=== PATIENT | female | born 1995 | race Caucasian/White ===

== ENCOUNTER 2019-09-12 14:52 | Outpatient (CLI) | payer OTHER, SELFPAY ==
--- NOTE | ~2019-09-12 | US_ITS ---
EXAMINATION: US OB <= 14 weeks fetus DATE: 09/12/2019 15:31 INDICATION: Establish viability and dating of during first trimester TECHNIQUE: Real-time pelvic ultrasound utilizing transabdominal probe was performed. The burke lujan radiologist was not present for the study. COMPARISON: None. FINDINGS: The uterus measures 10.8 x 6.3 x 5.8 cm. There is an intrauterine gestational sac. A yolk sac and fe jelly pole are identified. The crown rump length measures 1.7, which correlates with an estimated gesta tional age of 8 weeks and 1 days. heart motion is identified measuring 169 beats per minute (bp m) by M-mode Doppler. 1.4 x 1.1 x 1.8 cm hypoechoic region at the right side of the uterine fundus co nsistent with small subchorionic hematoma. The right ovary measures 2.6 x 3.3 x 2.5 cm. The left ovary measures 2.3 x 2.1 x 1.9 cm. After flow i dentified at both ovaries on color Doppler There is no free fluid in the pelvis. IMPRESSION: 1. Single living fetus with heart rate of 169 bpm. 2. Gestational age by ultrasound of 8 weeks 1 day(s) +/- 5 day(s) with ultrasound estimated date of delivery (MICHAEL) of 04/22/2020. 3. Likely small subchorionic hematoma. Reviewed, dictated and finalized at location A. [facility] VENDOR IMPRESSION: 1. Single living fetus with heart rate of 169 bpm. 2. Gestational age by ultrasound of 8 weeks 1 day(s) +/- 5 day(s) with ultraso und estimated date of delivery (MICHAEL) of 04/22/2020. 3. Likely small subchorionic hematoma.
== END 2019-09-12 14:53 | disposition home or self-care (01) ==
LOC: ANHIMG 15:01
PROVIDERS: Visit Provider Student in an Organized Health Care Education/Training Program
DX: Z32.01 Encounter for pregnancy test, result positive (principal); Z3A.08 8 weeks gestation of pregnancy
CPT/HCPCS: 76801

== ENCOUNTER 2019-10-13 08:15 | Outpatient (RCR) | payer OTHER, SELFPAY ==
[2019-10-13 09:10] LABS: Basophils Percent Auto 0.2 % (0.2-1.2); Eosinophils Absolute Auto 0.1 K/mm3 (0-0.3); Eosinophils Percent Auto 0.6 % (0-4.4); Hematocrit 34.9 % (37.0-47.0); Hemoglobin 11.6 g/dL (12.0-15.0); Immature Granulocyte Absolute 0.06 K/mm3 (0.00-0.031); Immature Granulocyte Percent A 0.6 % (0-0.5); Lymphocytes Absolute Auto 2.02 K/mm3 (0.9-3.2); Mean Corpuscular HGB Conc 33.2 g/dl (32-36); Mean Corpuscular Hemoglobin 30.5 pg (26-34); Mean Corpuscular Volume 91.8 fl (80-100); Mean Platelet Volume 9.7 fl (7.4-10.4); Monocytes Absolute Auto 0.5 K/mm3 (0.1-0.6); Monocytes Percent Auto 5.1 % (2.6-8.5); Neutrophils Percent Auto 74.5 % (45.5-73.1); Platelet Count Result 268 k/mm3 (150-375); Red Cell Distribution Width 12.2 % (11.5-14.5); White Blood Count 10.7 K/mm3 (4.5-10.0)
[2019-10-13 09:18] LABS: Add Urine Microscopic? YES; Amorphous Sediment Urine Few; Appearance Urine Cloudy (Clear); Bacteria Urine Trace /hpf; Bilirubin Urine Negative (Negative); Blood Urine Negative (Negative); Color Urine Yellow (Yellow); Glucose Urine UA Negative (Negative); Ketones Urine Negative (Negative); Leukocyte Esterase Ur Trace LEU/UL (NEGATIVE); Mucus Urine Rare /lpf; Nitrate Urine Negative (Negative); Protein Urine Negative (Negative); RBC Urine 0-2 /hpf (0-2); Specific Grav Ur 1.012 (1.001-1.035); Squamous Epithelial Cell Urine Moderate /hpf (Few); Urobilinogen Urine Negative mg/dL (<2.0)
[2019-10-13 10:07] LABS: Hepatitis B Surface Antigen Negative (Negative); Rubella IgG Antibody 71.6 IU/ML
[2019-10-13 10:14] LABS: HIV 1/2 Ab P24 Ag Result Negative (Negative); Hepatitis C Virus Antibody Negative (Negative)
[2019-10-13 10:17] LABS: Vitamin D 25 Hydroxy 22.5 ng/mL
[2019-10-15 09:24] LABS: Rapid Plasma Reagin Non-Reactive (NonReactive)
[2019-10-16 14:49] LABS: Varicella IgG Antibody <135.00 Index (>=165.00)
[2019-10-20 11:33] LABS: Hemoglobin 11.8 g/dL (11.7-15.5); MCH 30.8 pg (27.0-33.0); MCV 93.6 FL (80.0-100.0); RDW 13.2 % (11.0-15.0); Red Blood Cell Count 3.85 Mill/uL (3.80-5.10)
== END 2020-01-11 23:59 | disposition home or self-care (01) ==
LOC: ANHLAB 08:15
PROVIDERS: Visit Provider Student in an Organized Health Care Education/Training Program
DX: Z11.4 Encounter for screening for human immunodeficiency virus [HIV] (principal); Z3A.00 Weeks of gestation of pregnancy not specified
CPT/HCPCS: 36415; 81001; 81220; 81243; 82306; 83021; 84443; 85025; 86592; 86703; 86762; 86787; 86803; 86900; 86901; 87086; 87340; G0432

== ENCOUNTER 2019-11-04 08:04 | Emergency (ER) | payer OTHER, SELFPAY ==
--- NOTE | 2019-11-04 08:14 | ED.GENADULT ---
HPI - General Adult General Chief complaint: Urogenital-Female Stated complaint: Possible UTI Time Seen by Provider: 11/04/19 08:14 Source: patient Mode of arrival: ambulatory Limitations: no limitations History of Present Illness HPI narrative: 24-year-old female patient presents to the [facility] with complaints of right low back pain x3 days. Patient states that she is currently 15 weeks does have a doctor's appointment to see her OB doctor this coming . Patient states that time she has noticed some odor to her urine. Patient states that she does have pain with urination that comes and goes but is not consistent. Patient states that time she does have some pelvic cramping that comes and goes but it is not severe. Patient denies any fevers, nausea, vomiting or diarrhea. Patient denies taking anything for her symptoms. Related Data Home Medications Medication Instructions Recorded Confirmed vits 75-iron 28 mg-folic pkg PO 09/06/19 acid 800 mcg-omega-3 oral combo pack metoprolol tartrate [Lopressor] 25 mg PO DAILY 11/04/19 11/04/19 Allergies Allergy/AdvReac Type Severity Reaction Status Date / Time No Known Allergies Allergy Verified 11/04/19 08:26 Review of Systems Review of Systems: Narrative: CONSTITUTIONAL: Denies fever, chills, or sweats. EYES: Denies visual changes, redness, or discharge. ENT: Denies rhinorrhea, congestion, sore throat, or otalgia. CARDIOVASCULAR: Denies chest pain, palpitations, or edema. RESPIRATORY: Denies cough or dyspnea. GASTROINTESTINAL: Denies abdominal pain, nausea, vomiting, or diarrhea. GENITOURINARY: Denies dysuria or hematuria. Positive odor to urine SKIN: Denies rash or itching. MUSCULOSKELETAL positive right-sided low back pain, denies joint pain, or myalgia. NEUROLOGIC: Denies headache, numbness, or weakness. PSYCHIATRIC: Denies anxiety or depression. [facility] Past Medical History Medical History SVT (supraventricular tachycardia) Surgical History Surgical History H/O cardiac radiofrequency ablation Hx of tonsillectomy Social History Social History (Reviewed 03/29/20 @ 08:15 by OWEN Ortiz Smoking status: Former smoker Smoking end date: 08/08/18 Alcohol intake: current Gender identity (if verbalized by the patient): Female Comments At the time of my signature I agree with nursing past medical history, surgical, social, and family history. There is no relevant family history pertinent to the presenting complaint. Exam Narrative: Exam Narrative: GENERAL: Well-appearing, well-nourished, and in no acute distress. HEAD: Normocephalic, atraumatic. EYES: PERRLA and EOMI. ENT: Nares clear, no rhinorrhea or epistaxis. Mucous membranes moist. Bilateral TMs are clear no erythema or foreign bodies in the canal. Posterior pharynx with no erythema, tonsillar margin, exudates or lesions present. NECK: Supple. No lymphadenopathy CHEST: Clear to auscultation. No respiratory distress. HEART: Regular rate and rhythm. No murmur heard. Normal peripheral pulses. ABDOMEN: Soft, nontender, nondistended, normal active bowel sounds. BACK: Patient is able to ambulated without assistance. Pt is seated on the stretcher in no obvouis distress. No surface trauma noted. muscle tenderness to Palpation to the right lower lumbar area. No spasm or mass. No step-offs or deformity noted to the cervical, thoracic or lumbar spine to firm Palpation at the midline. No CVA tenderness to percussion. No saddle anesthesia. ROM: able to stand erect. Normal flexion, extension, Lateral bending and rotation without limitation or complaint of pain. EXTREMITIES: Normal range of motion. No edema. SKIN: Warm, dry, no rash. NEURO: No focal deficits. Alert and oriented x3. Course Vital Signs Vital signs: Vital Signs Temperature 37.1 C 11/04/19 08:19 Pu
[2019-11-04 08:19] VITALS: BP 110/60; PULSE 83; RESP 16; TEMP 37.1; O2SAT 98
--- NOTE | 2019-11-04 08:31 | PC.NURSE ---
0821- Pt reports she has a Dr. Pennington on
== END 2019-11-04 08:36 | disposition home or self-care (01) ==
PROVIDERS: Emergency Provider Nurse Practitioner Family
DX: M54.5 Low back pain (principal); Z87.891 Personal history of nicotine dependence
CPT/HCPCS: 81003; 87086; 99213; G0463

== ENCOUNTER 2020-04-04 19:03 | Emergency (ER) | payer OTHER, SELFPAY ==
[2020-04-04 19:15] VITALS: BP 130/54; PULSE 102; RESP 16; TEMP 36.8; O2SAT 98
--- NOTE | 2020-04-04 19:21 | ED.GENADULT ---
HPI - General Adult General Chief complaint: Ear Stated complaint: Ear Pain Time Seen by Provider: 04/04/20 19:21 Source: patient and RN notes reviewed Mode of arrival: ambulatory Limitations: no limitations History of Present Illness HPI narrative: 24-year-old 37 weeks and 2 days female presents with complaints of left otalgia for the past 3-4 days. History of ear infections and tympanostomy. Denies ear itching and drainage. No treatment. Tamy says she has been using q-tips to clean ears for the past 23 years. Denies swimming or getting water into ear. Denies trouble hearing. Denies URI symptoms, No high fevers or chills. Denies injury to the ear. No nasal drainage and congestion. Denies nausea, vomiting, tinnitus, and dizziness. The patient reports she have not been diagnosed with COVID-19. The patient reports she is not waiting for the results of a COVID-19 lab test. The patient reports she do not have fever, chills, weakness, fatigue, myalgia, or facial swelling. The patient reports she do not have a new or worsening cough or shortness of breath. Denies chest pain. The patient reports she do not have any rhinorrhea, congestion, sore throat, loss of taste, nausea, vomiting, abdominal pain, and diarrhea. Tolerating po intake well. Denies recent traveling. Denies concerns for COVID-19 or exposures been home with limited outdoor exposure except for essential household needs and return home. At this time, patient is not suspected of having COVID-19. Some parts of this dictation were generated by voice recognition software and may contain typographical and/or grammatical inaccuracies. Related Data Home Medications Medication Instructions Recorded Confirmed metoprolol tartrate [Lopressor] 25 mg PO DAILY 11/04/19 04/04/20 Allergies Allergy/AdvReac Type Severity Reaction Status Date / Time No Known Allergies Allergy Verified 04/04/20 19:25 Review of Systems Review of Systems: Narrative: CONSTITUTIONAL: Denies fever, chills, sweats. EYES: Denies visual changes, redness, discharge. ENT: Denies rhinorrhea, congestion, sore throat, drainage and itching. Complains of LT otalgia. CARDIOVASCULAR: Denies chest pain, palpitations, edema. RESPIRATORY: Denies dyspnea, wheezing, cough. GASTROINTESTINAL: Denies abdominal pain, nausea, vomiting, diarrhea. GENITOURINARY: Denies dysuria, hematuria, abnormal discharge. SKIN: Denies rash or itching. MUSCULOSKELETAL: Denies acute back pain, joint pain, or myalgia. NEUROLOGIC: Denies numbness or focal weakness. PSYCHIATRIC: Denies anxiety or depression. All systems reviewed & are unremarkable except as noted in HPI and below PMFSH Past Medical History Medical History (Updated 04/05/20 @ 00:00 by Corky Roman) Ear infection SVT (supraventricular tachycardia) Surgical History Surgical History (Updated 04/04/20 @ 19:50 by LIEN Green) H/O cardiac radiofrequency ablation History of dental surgery History of hand surgery LT History of tympanostomy Hx of tonsillectomy Family History Family History (Updated 04/04/20 @ 19:50 by LIEN Green) Father Alive and well Father Alive and well Social History Social History (Updated 04/04/20 @ 19:51 by LIEN Green) Smoking status: Former smoker Tobacco type: cigarettes Second hand tobacco smoke exposure: Yes Smoking end date: 08/08/18 Alcohol intake: former Alcohol use details: stop due to Substance use: former Substance use type: marijuana Living arrangements: with family Occupation/Education: unemployed Gender identity (if verbalized by the patient): Female Sexual Orientation (if Verbalized by the Patient): Straight or Heterosexual Comments At time of signature, I have reviewed and agree with nursing past medical, surgical, social, and family history. Please see nursing chart for further information. There is no r
== END 2020-04-04 19:44 | disposition home or self-care (01) ==
PROVIDERS: Emergency Provider Nurse Practitioner Family
DX: H61.22 Impacted cerumen, left ear (principal); Z87.891 Personal history of nicotine dependence; O99.89 Other specified diseases and conditions complicating pregnancy, childbirth and the puerperium; Z3A.37 37 weeks gestation of pregnancy
CPT/HCPCS: 69210; 99212; A9270; G0463

== ENCOUNTER 2021-06-15 14:23 | Emergency (ER) | payer OTHER, SELFPAY ==
--- NOTE | ~2021-06-15 | XR_ITS ---
XR foot RT min 3V, XR foot LT min 3V 06/15/2021 16:15 (accession [id number]), 06/15/2021 16:16 (accession [id number]) Indication: Status post fall. Bilateral foot pain. Procedure: 4 views each foot Comparison: No prior studies for comparison. Findings: There is an oblique intra-articular fracture proximal aspect of the left fifth metatarsal w ith minimal displacement. There is overlying soft tissue swelling. No other fracture or traumatic mal alignment. Lisfranc joint is intact bilaterally. No foreign bodies. Impression: 1: Oblique intra-articular fracture proximal aspect of the left fifth metatarsal. Reviewed, dictated and finalized at location A. Y COUNTER CLERK Impression: 1: Oblique intra-articular fracture proximal aspect of the left fifth metatarsa l. Impression: 1: Oblique intra-articular fracture proximal aspect of the left fifth metatarsa l.
--- NOTE | ~2021-06-15 | XR_ITS ---
XR knee RT 3V 06/15/2021 16:16 Indication: Right knee pain Procedure: 3 views right knee Comparison: No prior studies for comparison. Findings: No fracture, subluxation or dislocation. No significant soft tissue abnormality. No foreign bodies. No significant joint effusion. Impression: 1: No acute bone or joint abnormality. Reviewed, dictated and finalized at location A. [facility] AG[facility] Impression: 1: No acute bone or joint abnormality.
[2021-06-15 15:50] VITALS: BP 123/109; PULSE 96; RESP 20; TEMP 36.4; O2SAT 96
--- NOTE | 2021-06-15 15:59 | ED.FALL ---
HPI - Fall General Chief Complaint: Fall Stated Complaint: pain L foot Source: patient Mode of arrival: wheelchair Limitations: no limitations History of Present Illness HPI Narrative: Previously well 26-year-old woman comes in today complaining of pain in her knees and feet after she fell less than an hour prior to presentation. Patient states that she was carrying her child in the car seat when she fell. She did not lose consciousness and denies any other injuries. Her tetanus is up-to-date. She has been unable to bear weight on her left foot since the fall. complaint: fall Onset (ago): hour(s) (1) Fall from: standing Fall witnessed: no Place fall occurred: home Loss of consciousness: none Symptoms prior to fall: none Context: tripped/slipped Location of injury - extremities: Bilateral: knee and foot Severity: severe Quality: sharp Associated symptoms (after fall): denies Related Data Home Medications Medication Instructions Recorded Confirmed metoprolol tartrate [Lopressor] 25 mg PO DAILY 11/04/19 06/15/21 Allergies Allergy/AdvReac Type Severity Reaction Status Date / Time No Known Allergies Allergy Verified 06/15/21 16:01 Review of Systems Review of Systems: All systems reviewed & are unremarkable except as noted in HPI and below Musculoskeletal: Musculoskeletal: Reports as per HPI, Denies back pain, Reports arthralgias and Reports joint swelling Integumentary/Breasts: Skin/Breast: Denies pruritus, Denies erythema and Denies rash Comments: Abrasions on both legs Neurologic: Denies vertigo, Denies dizziness, Denies syncope, Denies focal weakness and Denies numbness Hematologic/Lymphatic: Hematologic/Lymphatic: Denies easy bleeding and Denies easy bruising Allergic/Immunologic: Allergic/Immunologic: Denies lip swelling and Denies throat swelling PMFSH Past Medical History Medical History Ear infection SVT (supraventricular tachycardia) Surgical History Surgical History H/O cardiac radiofrequency ablation History of dental surgery History of hand surgery LT History of tympanostomy Hx of tonsillectomy Family History Family History (Updated 04/04/20 @ 19:50 by LIEN Green) Father Alive and well Father Alive and well Social History Social History (Updated 04/04/20 @ 19:51 by LIEN Green) Smoking status: Former smoker Tobacco type: cigarettes Second hand tobacco smoke exposure: Yes Smoking end date: 08/08/18 Alcohol intake: former Alcohol use details: stop due to Substance use: former Substance use type: marijuana Gender identity (if verbalized by the patient): Female Sexual Orientation (if Verbalized by the Patient): Straight or Heterosexual Exam Const: General: healthy appearing and alert Orientation/consciousness: patient oriented x3 Limitations: no limitations Other: Moderate acute distress, anxious Resp: Effort & Inspection: normal respiratory effort and not labored Auscultation: clear to auscultation bilaterally, no rales, no rhonchi and no wheezes Cardio: Rate: regular rate Rhythm: regular rhythm Skin: General skin exam: normal color, no jaundice and no pallor Rashes: no rashes Neuro: General: patient oriented x3, moves all extremities and CN's II-XI intact bilaterally Speech: normal speech Extrem: General: no clubbing, cyanosis or edema Right lower extremity: normal capillary refill, no joint enlargement and foot Details: tenderness (Dorsal tenderness at distal half of the 1st metatarsal and the proximal hallux.), abrasion (Right anterior knee and dorsal foot medially), ecchymosis (Tip of the right hallux) and vascular exam Details: dorsalis pedis pulse present and normal capillary refill; no cyanosis Left lower extremity: normal capillary refill, knee (Anterior knee) Details: abrasion (
[2021-06-15] MEDS: HYDROcodone/acetaminophen (*CRX) 5-325 MG TABLET 1 TAB PO (16:00)
== END 2021-06-15 17:18 | disposition home or self-care (01) ==
PROVIDERS: Emergency Provider Emergency Medicine
DX: S80.819A Abrasion, unspecified lower leg, initial encounter (principal); S92.352A Displaced fracture of fifth metatarsal bone, left foot, initial encounter for closed fracture; W19.XXXA Unspecified fall, initial encounter
CPT/HCPCS: 29515; 73562; 73630; 99283; 99284; A9270

== ENCOUNTER 2021-12-10 15:35 | Emergency (ER) | payer OTHER, SELFPAY ==
[2021-12-10 15:44] VITALS: BP 107/64; PULSE 92; RESP 16; TEMP 36.6; O2SAT 100
--- NOTE | 2021-12-10 15:44 | ED.URI ---
HPI - URI/Sore Throat General Chief Complaint: Upper Respiratory Infection Stated Complaint: Cough Time Seen by Provider: 12/10/21 15:44 Source: patient Mode of arrival: ambulatory Limitations: no limitations History of Present Illness HPI Narrative: 26-year-old female with no significant medical history presents with complaint of cough for 2 weeks. Reports shortness of breath with exertion, coughing all night long. No fever chills. Reports increased fatigue over the last few days. Did a home COVID test that was negative. Is using cough drops, no other [id number] cough suppressant. Reports cough is so bad that she is urinating on herself. All systems reviewed and negative except as noted above. Related Data Home Medications Medication Instructions Recorded Confirmed metoprolol tartrate [Lopressor] 25 mg PO DAILY 11/04/19 12/10/21 lamotrigine 25 mg PO DAILY 12/10/21 12/10/21 sertraline 50 mg PO DAILY 12/10/21 12/10/21 Allergies Allergy/AdvReac Type Severity Reaction Status Date / Time No Known Allergies Allergy Verified 12/10/21 15:44 Review of Systems Review of Systems: CONSTITUTIONAL: Denies fever, chills, or sweats. EYES: Denies visual changes, redness, or discharge. ENT: Denies rhinorrhea, congestion, sore throat, or otalgia. CARDIOVASCULAR: Denies chest pain, palpitations, or edema. RESPIRATORY: Reports cough. Denies dyspnea. GASTROINTESTINAL: Denies abdominal pain, nausea, vomiting, or diarrhea. GENITOURINARY: Denies dysuria or hematuria. SKIN: Denies rash or itching. MUSCULOSKELETAL: Denies back pain, joint pain, or myalgia. NEUROLOGIC: Denies headache, numbness, or weakness. PSYCHIATRIC: Denies anxiety or depression. All other systems reviewed are negative, except as documented in HPI. PENDING SALE TO [facility] Past Medical History Medical History Ear infection Metatarsal bone fracture SVT (supraventricular tachycardia) Surgical History Surgical History H/O cardiac radiofrequency ablation History of dental surgery History of hand surgery LT History of tympanostomy Hx of tonsillectomy Family History Family History Father Alive and well Father Alive and well Social History Social History Tobacco type: e-cigarettes/vaping Second hand tobacco smoke exposure: Yes Smoking end date: 08/08/18 Alcohol intake: never Alcohol use details: stop due to Substance use: never Substance use type: does not use Gender identity (if verbalized by the patient): Female Sexual Orientation (if Verbalized by the Patient): Straight or Heterosexual Comments At time of signature, agree with nursing past medical, surgical, social and family history. There is no relevant family history pertinent to the presenting complaint. Exam Narrative: GENERAL: This is a well-nourished, well-developed patient, in no apparent distress. HEAD: normocephalic, atraumatic. EYES: PERRL. Sclera clear/white. Vision is grossly intact. EARS: External ears normal NOSE: External nose normal NECK: Neck supple, non-tender without lymphadenopathy, masses or thyromegaly. CARDIOVASCULAR: Regular rate and rhythm without murmurs, gallops, or rubs. RESPIRATORY: Decreased lung sounds to bases, otherwise clear. No wheezes, rales, or rhonchi. SKIN: warm, Dry, intact with no suspicious lesions or rash, good texture and turgor. NEURO: awake, alert, and oriented to person, place and time. There were no obvious focal neurologic abnormalities. EXTREMITIES: No joint tenderness, effusion, or edema noted. No calf tenderness. Negative Homans sign bilaterally. Course Course Level of Care: Express Care Visit Vital Signs Vital signs: Vital Signs Temperature 36.6 C 12/10/21 15:44 Pulse Rate 92 05/0
[2021-12-10 15:46] VITALS: BP 107/64; PULSE 92; RESP 16; TEMP 36.6; O2SAT 100
== END 2021-12-10 15:58 | disposition home or self-care (01) ==
PROVIDERS: Emergency Provider Nurse Practitioner Family
DX: J06.9 Acute upper respiratory infection, unspecified (principal)
CPT/HCPCS: 99213; G0463

== ENCOUNTER 2022-01-29 08:37 | Emergency (ER) | payer OTHER, SELFPAY ==
--- NOTE | 2022-01-29 08:45 | ED.EYEPROB ---
HPI - Eye Problem General Chief complaint: Eye Problems Stated complaint: left eye redness/painful Time Seen by Provider: 01/29/22 08:47 Source: patient, RN notes reviewed and old records reviewed Mode of arrival: ambulatory Limitations: no limitations History of Present Illness HPI Narrative: 26-year-old female presents to the [facility] with pain and redness to the left eye. Patient states that she had irritation to her left eye last night, went to bed woke up with a completely crusted closed. Denies any trauma, does not wear contact lenses no fevers. No headaches. No sensitivity to light MD chief complaint: eye pain and eye redness Location: left eye Eye Symptoms: redness, pain, itching and discharge Related Data Home Medications Medication Instructions Recorded Confirmed sertraline 50 mg tablet 50 mg PO DAILY 12/10/21 01/29/22 lamotrigine 25 mg tablet 100 mg PO DAILY 01/13/22 01/29/22 clonidine HCl 0.1 mg tablet 0.1 mg PO DAILY 01/29/22 01/29/22 lamotrigine 100 mg tablet 100 mg PO DIRECTED 01/29/22 01/29/22 Allergies Allergy/AdvReac Type Severity Reaction Status Date / Time No Known Allergies Allergy Verified 01/29/22 08:47 Review of Systems Review of Systems: All systems reviewed & are unremarkable except as noted in HPI and below Constitutional: Constitutional: Reports no additional constitutional complaints, Denies chills and Denies fever(s) Eyes: Eyes: Reports as per HPI, Denies change in vision, Denies diplopia, Reports eye discharge, Reports irritation, Denies loss of vision and Denies photophobia ENT: Reports system reviewed and no additional complaints, except as documented Cardiovascular: Cardiovascular: Reports no additional cardiovascular complaints Respiratory: Respiratory: Reports no additional respiratory complaints Gastrointestinal: Gastrointestinal: Reports no additional gastrointestinal complaints Musculoskeletal: Musculoskeletal: Reports no additional musculoskeletal complaints Integumentary/Breasts: Skin/Breast: Reports system reviewed and no additional complaints, except as docu Neurologic: Reports system reviewed and no additional complaints, except as documented Psychiatric: Psychiatric: Reports no additional psychiatric complaints Allergic/Immunologic: Allergic/Immunologic: Reports no additional allergic/immunologic complaints PMFSH Past Medical History Medical History Bilateral lower abdominal pain Chronic diarrhea Ear infection Hematochezia Metatarsal bone fracture Obesity SVT (supraventricular tachycardia) Tobacco use Surgical History Surgical History H/O cardiac radiofrequency ablation History of dental surgery History of hand surgery LT History of tympanostomy Hx of tonsillectomy Family History Family History Father Alive and well Father Alive and well Social History Social History Smoking status: Current every day smoker (Vapes) Tobacco type: e-cigarettes/vaping Second hand tobacco smoke exposure: Yes Smoking end date: 08/08/18 Alcohol intake: never Alcohol use details: stop due to Substance use: never Substance use type: does not use Gender identity (if verbalized by the patient): Female Sexual Orientation (if Verbalized by the Patient): Straight or Heterosexual Comments At the time of my signature, I reviewed and agree with the nursing past medical, surgical, social, and family history. There is no relevant family history pertinent to the patient complaint. Exam Const: General: healthy appearing, no acute distress and alert Nutritional Appearance: well nourished Orientation/consciousness: patient oriented x3 Limitations: no limitations HENMT: Head: normal to inspection Ears: external ears normal Eyes: General: appearance normal, bot
[2022-01-29 08:47] VITALS: BP 108/60; PULSE 76; RESP 16; TEMP 35.9; O2SAT 98
[2022-01-29 08:49] VITALS: BP 108/60; PULSE 76; RESP 16; TEMP 35.9; O2SAT 98
== END 2022-01-29 08:57 | disposition home or self-care (01) ==
PROVIDERS: Emergency Provider Nurse Practitioner
DX: H10.32 Unspecified acute conjunctivitis, left eye (principal); F17.290 Nicotine dependence, other tobacco product, uncomplicated; E66.9 Obesity, unspecified; Z68.36 Body mass index [BMI] 36.0-36.9, adult
CPT/HCPCS: 99213; G0463

== ENCOUNTER 2022-04-29 08:25 | Emergency (ER) | payer OTHER, SELFPAY ==
--- NOTE | ~2022-04-29 | XR_ITS ---
EXAMINATION: XR chest 1V portable DATE: 04/29/2022 08:51 INDICATION: Shortness of breath. TECHNIQUE: A single frontal view of the chest was obtained. COMPARISON: Chest 2 views 03/23/2018 FINDINGS: The chest demonstrates clear lungs without pneumonia, pleural effusion, or pneumothorax. Th e heart size is normal. IMPRESSION: 1. No acute cardiopulmonary disease. Reviewed, dictated and finalized at location A.
[2022-04-29 08:34] VITALS: BP 114/55; PULSE 95; RESP 17; TEMP 36.3; O2SAT 97
[2022-04-29 08:35] VITALS: BP 114/55; PULSE 95; RESP 17; TEMP 36.3; O2SAT 97
--- NOTE | 2022-04-29 08:54 | ED.SOB ---
HPI - SOB/Dyspnea General Chief Complaint: Shortness of Breath/Dyspnea Stated Complaint: BREATHING ISSUES Time Seen by Provider: 04/29/22 08:40 Source: patient Mode of arrival: ambulatory Limitations: no limitations History of Present Illness HPI Narrative: this is a 26-year-old female that presents with what she states as feeling short of breath, but clarifies as to feels like she has to think about taking a deep breath, there is currently no cough or congestion no fever chills no chest pain no abdominal pain no headaches no blurry vision no nasal congestion. MD elicited complaint: shortness of breath Onset (ago): hour(s) Timing: improved Severity: mild Related Data Home Medications Medication Instructions Recorded Confirmed norethindrone 1 mg-ethinyl 1 tablet PO DAILY 02/19/22 02/19/22 estradiol 20 mcg (24)-iron 75 mg (4) tablet bupropion HCl 150 mg 24 hr tablet, 150 mg PO QAM 04/29/22 04/29/22 extended release buspirone 10 mg tablet 10 mg PO BID 04/29/22 04/29/22 escitalopram oxalate 10 mg tablet 10 mg PO DAILY 04/29/22 04/29/22 lamotrigine 150 mg tablet 150 mg PO DAILY 04/29/22 04/29/22 Allergies Allergy/AdvReac Type Severity Reaction Status Date / Time No Known Allergies Allergy Verified 04/29/22 08:43 Review of Systems Review of Systems: All systems reviewed & are unremarkable except as noted in HPI and below PMFSH Past Medical History Medical History Bilateral lower abdominal pain Chronic diarrhea Ear infection Hematochezia Metatarsal bone fracture Obesity SVT (supraventricular tachycardia) Tobacco use Surgical History Surgical History H/O cardiac radiofrequency ablation History of dental surgery History of hand surgery LT History of tympanostomy Hx of tonsillectomy Family History Family History Father Alive and well Father Alive and well Social History Social History Smoking status: Current every day smoker Tobacco type: e-cigarettes/vaping Second hand tobacco smoke exposure: Yes Smoking end date: 08/08/18 Alcohol intake: never Alcohol use details: stop due to Substance use: never Substance use type: does not use Gender identity (if verbalized by the patient): Female Sexual Orientation (if Verbalized by the Patient): Straight or Heterosexual Spiritual care concerns: No Exam Const: General: healthy appearing and no acute distress Limitations: no limitations HENMT: Head: normal to inspection Ears: external ears normal General nose exam: Normal external nose present Eyes: Conjunctivae: conjunctivae normal EOM: EOMs intact bilaterally Neck: Neck: normal visual inspection and no lymphadenopathy Chest: Chest palpation & inspection: normal inspection of the chest Resp: Effort & Inspection: normal respiratory effort Cardio: Rate: regular rate Rhythm: regular rhythm GI: GI Palp: Yes Soft to palpation Auscultation: normal bowel sounds Skin: General skin exam: normal color Wounds: no wounds Neuro: General: patient oriented x3, moves all extremities and no meningeal signs Extrem: General: normal to inspection Psych: Mental Status: mental status grossly normal Course Course Emergency Course: Patient declined any anti anxiety medication x-ray performed and reviewed patient is stable to be discharged her vital signs are stable O2 sats 97% on room air blood pressure 114/55 heart rate of 95 and respiratory rate of 17 Vital Signs Vital signs: Vital Signs Temperature 36.3 C L 04/29/22 08:34 Pulse Rate 95 04/29/22 08:34 Respiratory Rate 17 04/29/22 08:34 Blood Pressure 114/55 L 04/29/22 08:34 Pulse Oximetry 97 04/29/22 08:34 Oxygen Delivery Room Air 04/29/22 08:34 Temperature 36.3 C L 04/29/22 08:35 Pulse Rate 95
[2022-04-29 09:19] VITALS: O2SAT 100
[2022-04-29 09:22] VITALS: BP 114/55; PULSE 95; RESP 17; TEMP 36.3; O2SAT 97
== END 2022-04-29 09:24 | disposition home or self-care (01) ==
LOC: CHSED 09:11
PROVIDERS: Emergency Provider Emergency Medicine
DX: F41.9 Anxiety disorder, unspecified (principal)
CPT/HCPCS: 71045; 99283

== ENCOUNTER 2022-08-13 10:10 | Emergency (ER) | payer OTHER, SELFPAY ==
[2022-08-13 10:20] VITALS: BP 115/66; PULSE 88; RESP 18; TEMP 36.2; O2SAT 97
--- NOTE | 2022-08-13 10:46 | ED.GENADULT ---
HPI - General Adult General Stated complaint: Left hand middle finger pain Time Seen by Provider: 08/13/22 10:39 History of Present Illness HPI narrative: This is a 27-year-old female presenting with a painful lump on her left hand middle finger. Patient noticed that she had a painful dark lump over the volar aspect of the joint between proximal and middle phalanx of her 3rd finger. She says it fluctuates in size throughout the day. She notes no trauma, she notes that it is painful to touch, she has never had this in the past. She became concerned because she woke up this morning and her hand was numb although that quickly resolved. patient denies any other complaints. Related Data Home Medications Medication Instructions Recorded Confirmed bupropion HCl 150 mg 24 hr tablet, 150 mg PO QAM 04/29/22 04/29/22 extended release buspirone 10 mg tablet 10 mg PO BID 04/29/22 04/29/22 lamotrigine 150 mg tablet 150 mg PO DAILY 04/29/22 04/29/22 Allergies Allergy/AdvReac Type Severity Reaction Status Date / Time No Known Allergies Allergy Verified 04/29/22 08:43 [facility] Past Medical History Medical History Bilateral lower abdominal pain Chronic diarrhea Ear infection Hematochezia Metatarsal bone fracture Obesity SVT (supraventricular tachycardia) Tobacco use Surgical History Surgical History H/O cardiac radiofrequency ablation History of dental surgery History of hand surgery LT History of tympanostomy Hx of tonsillectomy Family History Family History Father Alive and well Father Alive and well Social History Social History Smoking status: Current every day smoker Tobacco type: e-cigarettes/vaping Second hand tobacco smoke exposure: Yes Smoking end date: 08/08/18 Alcohol intake: never Alcohol use details: stop due to Substance use: never Substance use type: does not use Gender identity (if verbalized by the patient): Female Sexual Orientation (if Verbalized by the Patient): Straight or Heterosexual Spiritual care concerns: No Exam Narrative: APPEARANCE: No apparent distress. Head: atraumatic. EYES: EOMI, NOSE: Atraumatic NECK: Trachea midline RESPIRATORY: No increased rate of breathing CARDIOVASCULAR: RRR, ABDOMINAL: Non-distended MUSCULOSKELETAl: Patient has a 2 mm circular dark spot over the volar aspect of the 3rd left hand. His joint between the proximal and middle phalanx. Extension and flexion are intact. Cap refills less than 2 seconds. No erythema or evidence of infection. NEURO: Alert. Moving 4/4 extremities SKIN:: Warm, dry. Normal color PSYCHIATRIC: Normal affect Course Vital Signs Vital signs: Vital Signs Temperature 97.2 F L 08/13/22 10:20 Pulse Rate 88 08/13/22 10:20 Respiratory Rate 18 08/13/22 10:20 Blood Pressure 115/66 08/13/22 10:20 Pulse Oximetry 97 08/13/22 10:20 Oxygen Delivery Room Air 08/13/22 10:20 Temperature 97.2 F L 08/13/22 10:20 Pulse Rate 88 08/13/22 10:20 Respiratory Rate 18 08/13/22 10:20 Blood Pressure 115/66 08/13/22 10:20 Pulse Oximetry 97 08/13/22 10:20 Oxygen Delivery Room Air 08/13/22 10:20 Medical Decision Making [facility] Narrative Medical decision making narrative: This is a 27-year-old female presenting with a painful lump on her hand for the last 2-3 days. Differential includes blood blister, ganglion cyst, ruptured blood vessel or occult traumatic injury. patient has a small lump on her hand almost looks like a blood blister although she denies trauma or any pinching events. She has no other symptoms which to guide a workup. No emergent conditions to be treated this time with patient can follow-up with her primary care physician. Discharged. Vital Signs Vital Signs:
[2022-08-13 10:52] VITALS: BP 115/66; PULSE 88; RESP 20; TEMP 36.2; O2SAT 96
== END 2022-08-13 10:57 | disposition home or self-care (01) ==
PROVIDERS: Emergency Provider Emergency Medicine
DX: R22.32 Localized swelling, mass and lump, left upper limb (principal); F17.290 Nicotine dependence, other tobacco product, uncomplicated
CPT/HCPCS: 99281

== ENCOUNTER 2022-09-04 11:44 | Outpatient (CLI) | payer OTHER, SELFPAY ==
--- NOTE | ~2022-09-04 | XR_ITS ---
XR hand LT min 3V 09/04/2022 12:04 INDICATION: Left hand pain and bruising PROCEDURE: 3 views left hand COMPARISON: 04/11/2019 FINDINGS: Fracture, dislocation or subluxation is not identified. The soft tissues appear within norm al limits. No foreign bodies are identified. IMPRESSION: 1: NO ACUTE BONE OR JOINT ABNORMALITY IDENTIFIED. Reviewed, dictated and finalized at location A. ROOM CULTIVATOR
== END 2022-09-04 11:45 | disposition home or self-care (01) ==
DX: S69.90XA Unspecified injury of unspecified wrist, hand and finger(s), initial encounter (principal); X58.XXXA Exposure to other specified factors, initial encounter
CPT/HCPCS: 73130

== ENCOUNTER 2024-01-14 15:09 | Emergency (ER) | payer OTHER, SELFPAY ==
[2024-01-14 15:12] VITALS: BP 107/67; PULSE 68; RESP 19; TEMP 36.6; O2SAT 96
--- NOTE | 2024-01-14 15:14 | ECG_ITS ---
Test Date: 2024-01-14 15:19:11 Measurements Intervals [place] Rate: 62 P: 37 [place]: 148 QRS: 42 QRSD: 90 T: 44 QT: 395 QTc: 402 Interpretive Statements SINUS RHYTHM WITH SINUS ARRHYTHMIA No previous ECG available for comparison Electronically Signed On 01-17-2024 10:38:19 CDT by Giovanny Sanderson M.D.
[2024-01-14 15:22] VITALS: PULSE 76; O2SAT 97
[2024-01-14 15:23] VITALS: BP 107/67; PULSE 76; RESP 20; TEMP 36.6; O2SAT 97
--- NOTE | 2024-01-14 16:10 | ED.SOB ---
HPI - SOB/Dyspnea General Chief Complaint: Shortness of Breath/Dyspnea Stated Complaint: shortness of breath Source: patient Mode of arrival: ambulatory Limitations: no limitations History of Present Illness HPI Narrative: 8-year-old female with a history of SVT status post ablation, ex-smoker, bipolar disorder and intermittent chest pain (possibly related to Concerta as per her [employer]) presents to the ER with a 3 day history of -- anterior chest pain and pain in bilateral lateral lower chest which is not related to activity. No radiation of the pain. The pain is short lived. She has had these pains in the past for which she was placed on metoprolol by her [employer] with resolution of the chest pains which has recurred today. pain is rated as 8/10 and lasts for wearing intervals. At times it lasts 5 minutes and at other times it lasts for a longer duration. Pain resolved spontaneously. -- Shortness of breath. The patient complains of shortness of breath without any cough, sputum production. No fever or chills MD elicited complaint: shortness of breath and chest pain Onset (ago): day(s) ( 3 days) Timing: intermittent Severity: severe Exacerbating factors: nothing Relieving factors: nothing Associated symptoms: chest pain Treatment prior to arrival: none Related Data Home oxygen amount: none Home Medications Medication Instructions Recorded Confirmed lamotrigine 100 mg tablet 100 mg PO DAILY 01/14/24 01/14/24 methylphenidate HCl 27 mg 27 mg PO DAILY 01/14/24 01/14/24 tablet,extended release 24 hr (Concerta) metoprolol tartrate 50 mg tablet 50 mg PO DAILY 01/14/24 01/14/24 Allergies Allergy/AdvReac Type Severity Reaction Status Date / Time amoxicillin Allergy Unknown Verified 01/14/24 15:48 Review of Systems Review of Systems: All systems reviewed & are unremarkable except as noted in HPI and below Constitutional: Constitutional: Reports as per HPI and Reports no additional constitutional complaints Eyes: Eyes: Reports as per HPI and Reports no additional eye complaints ENT: Reports system reviewed and no additional complaints, except as documented and Reports as per HPI Cardiovascular: Cardiovascular: Reports as per HPI, Reports no additional cardiovascular complaints and Reports chest pain Respiratory: Respiratory: Reports as per HPI, Reports no additional respiratory complaints and Reports dyspnea Gastrointestinal: Gastrointestinal: Reports as per HPI and Reports no additional gastrointestinal complaints Genitourinary: Genitourinary: Reports no additional female genitourinary complaints and Reports as per HPI Musculoskeletal: Musculoskeletal: Reports no additional musculoskeletal complaints and Reports as per HPI Integumentary/Breasts: Skin/Breast: Reports system reviewed and no additional complaints, except as docu and Reports as per HPI Neurologic: Reports system reviewed and no additional complaints, except as documented and Reports as per HPI Psychiatric: Psychiatric: Reports no additional psychiatric complaints, Reports as per HPI and Reports anxiety Endocrine: Endocrine: Reports no additional endocrine complaints and Reports as per HPI Hematologic/Lymphatic: Hematologic/Lymphatic: Reports no additional hematologic/lymphatic complaints and Reports as per HPI Allergic/Immunologic: Allergic/Immunologic: Reports no additional allergic/immunologic complaints and Reports as per HPI PMFSH Past Medical History Medical History Bilateral lower abdominal pain Chronic diarrhea Ear infection Hematochezia Metatarsal bone fracture Obesity SVT (supraventricular tachycardia) Tobacco use Surgical History Surgical History H/O cardiac radiofrequency ablation History of dental surgery History of hand surgery LT History of tympanostomy Hx of tonsillectomy Family History Family History (Reviewed 01/14/24 @ 16:20 by Kacy
[2024-01-14 17:20] VITALS: BP 101/55; PULSE 74; RESP 20; TEMP 36.7; O2SAT 97
== END 2024-01-14 17:30 | disposition left against medical advice (07) ==
PROVIDERS: Emergency Provider Family Medicine; PCP Obstetrics & Gynecology
DX: R06.02 Shortness of breath (principal); R07.9 Chest pain, unspecified; F17.290 Nicotine dependence, other tobacco product, uncomplicated; Z79.899 Other long term (current) drug therapy
CPT/HCPCS: 93005; 99284

== ENCOUNTER 2024-08-09 10:48 | Emergency (ER) | payer OTHER, SELFPAY ==
--- NOTE | ~2024-08-09 | XR_ITS ---
EXAMINATION: XR chest 2V DATE: 08/09/2024 11:17 INDICATION: Cough TECHNIQUE: frontal and lateral views of the chest were obtained. COMPARISON: Chest radiograph dated 04/29/2022 FINDINGS: The lungs are clear with no focal airspace opacities, pulmonary edema, pleural effusion or pneumothor ax. The cardiomediastinal silhouette is normal. Mild thoracic spondylosis. IMPRESSION: 1. No acute cardiopulmonary disease. Reviewed, dictated and finalized at location B. OGRAPHER
[2024-08-09 10:55] VITALS: BP 114/78; PULSE 113; RESP 18; TEMP 35.9; O2SAT 96
--- NOTE | 2024-08-09 10:56 | PC.NURSE ---
covid swab sent to lab
--- NOTE | 2024-08-09 11:01 | ED_ITS ---
HPI - URI/Sore Throat General Chief Complaint: Upper Respiratory Infection Stated Complaint: cough Time Seen by Provider: 08/09/24 10:56 Source: patient Mode of arrival: ambulatory Limitations: no limitations History of Present Illness HPI Narrative: Patient is a 29-year-old female with cough and congestion for the past month. She is feeling more run down and fatigued lately. She is having sinus pain and pressure. She is coughing up yellow and greenish phlegm. No fever chills. MD elicited complaint: cough, rhinorrhea, nasal congestion and sinus pain Pertinent past history: other ( psychiatry) Onset (ago): month(s) (1) Consistency: constant Severity: moderate Pain scale (0-10): 2 Description of mucous: clear, watery, yellow and green Able to tolerate fluids by mouth: Yes Exacerbating factors: nothing Relieving factors: nothing Context: other ( patient having yellow-green discharge from phlegm and sinus pressure for the past month) Associated symptoms: myalgias, rhinorrhea and nasal congestion Treatments prior to arrival: none Related Data Home Medications ?Medication ?Instructions ?Recorded ?Confirmed ?Last Taken ?Type lamotrigine 100 mg tablet 100 mg PO DAILY 01/14/24 01/14/24 Unknown History methylphenidate HCl 27 mg 27 mg PO DAILY 01/14/24 01/14/24 Unknown History tablet,extended release 24 hr (Concerta) metoprolol tartrate 50 mg tablet 50 mg PO DAILY 01/14/24 01/14/24 Unknown History Allergies Allergy/AdvReac Type Severity Reaction Status Date / Time amoxicillin Allergy Unknown Verified 08/09/24 11:16 Review of Systems Review of Systems: All systems reviewed & are unremarkable except as noted in HPI and below Constitutional: Constitutional: Reports no additional constitutional complaints Eyes: Eyes: Reports no additional eye complaints ENT: Reports system reviewed and no additional complaints, except as documented Cardiovascular: Cardiovascular: Reports no additional cardiovascular complaints Respiratory: Respiratory: Reports no additional respiratory complaints Gastrointestinal: Gastrointestinal: Reports no additional gastrointestinal complaints Genitourinary: Genitourinary: Reports no additional female genitourinary complaints Musculoskeletal: Musculoskeletal: Reports no additional musculoskeletal complaints Integumentary/Breasts: Skin/Breast: Reports system reviewed and no additional complaints, except as docu Neurologic: Reports system reviewed and no additional complaints, except as documented Psychiatric: Psychiatric: Reports no additional psychiatric complaints Endocrine: Endocrine: Reports no additional endocrine complaints Hematologic/Lymphatic: Hematologic/Lymphatic: Reports no additional hemat ologic/lymphatic complaints Allergic/Immunologic: Allergic/Immunologic: Reports no additional allergic/immunologic complaints PMFSH Past Medical History Medical History Tobacco use Obesity Bilateral lower abdominal pain Chronic diarrhea Hematochezia Metatarsal bone fracture Ear infection SVT (supraventricular tachycardia) Surgical History Surgical History History of tympanostomy History of hand surgery LT History of dental surgery H/O cardiac radiofrequency ablation Hx of tonsillectomy Family History Family History Father Alive and well Father Alive and well Social History Social History Smoking status: Current every day smoker Tobacco type: e-cigarettes/vaping Second hand tobacco smoke exposure: Yes Smoking end date: 08/08/18 Alcohol intake: never Alcohol use details: stop due to Substance use: never Substance use type: does not use Living arrangements: with family Occupation/Education: unemployed Gender identity (if verbalized by the patient): Female Sexual Orientation (if Verbalized by the Patient): Straight or Heterosexual Spiritual care concerns: No Exam 2 Const: General: healthy appearing Nutritional Appearance: well nourished Orientation/consciousness: patient oriented x3 Limitations: no limitations HENMT: Head: normal to inspection Ears: external ears normal Face/Nose/Sinus: Normal external nose present Eyes: Conjunctivae: conjunctivae normal Pupils: Equal, round and reactive pupils present EOM: EOMs intact bilaterally Neck: Neck: normal visual inspection Chest: Chest palpation & inspection: normal inspection of the chest Resp: Effort & Inspection: normal respiratory effort and not labored Auscultation: clear to auscultation bilaterally, no crackles, no rales, no rhonchi, no wheezes, breath sounds present and lung sounds not diminished Cardio: Rate: regular rate Rhythm: regular rhythm Heart sounds: no murmurs GI: Inspection: non-distended GI Palp: Yes Soft to palpation and No Tenderness to palpation present (GI) Auscultation: normal bowel sounds : General: Yes bladder normal to palpation Back/Spine/Pelvis: Back: no CVA tenderness Skin: General skin exam: normal color Rashes: no rashes Wounds: no wounds Neuro: General: patient oriented x3 and moves all extremities Cranial nerves: Yes Nystagmus not present Speech: normal speech Gait exam (Neuro): Normal gait present Extrem: General: normal to inspection Psych: Mental Status: mental status grossly normal Affect: normal affect Attitude: cooperative Course Vital Signs Vital signs: Vital Signs Temperature 35.9 C L 08/09/24 10:55 Pulse Rate 113 H 08/09/24 10:55 Respiratory Rate 18 08/09/24 10:55 Blood Pressure 114/78 08/09/24 10:55 Pulse Oximetry 96 08/09/24 10:55 Oxygen Delivery Room Air 08/09/24 10:55 Temperature 35.9 C L 08/09/24 10:55 Pulse Rate 113 H 08/09/24 10:55 Respiratory Rate 18 08/09/24 10:55 Blood Pressure 114/78 08/09/24 10:55 Pulse Oximetry 96 08/09/24 10:55 Oxygen Delivery Room Air 08/09/24 11:00 MDM - URI/Sore Throat MDM Narrative Medical decision making narrative: patient is a 29-year-old female with a 1 month history of cough with congestion and yellow phlegm with sinus pain and pressure. We will do a Z-Robin at this time. Lab Data Attestation: I reviewed the patient's lab results. Labs: Lab Results 08/09/24 Range/Units 10:57 Influenza A (RT-PCR) Negative (Negative) Influenza B (RT-PCR) Negative (Negative) RSV (RT-PCR) Negative (Negative) SARS-CoV-2 RNA (RT-PCR) Negative (Negative) Imaging Data Attestation: I personally reviewed and interpreted this imaging study as follows: Radiologist's impression: Chest x-ray is negative for acute process Discharge Plan Discharge Clinical Impression: Sinusitis Qualifiers: Sinusitis location: unspecified location Chronicity: acute Recurrence: not specified as recurrent Qualified Code(s): J01.90 - Acute sinusitis, unspecified Patient Disposition: Home, Self-Care Condition: Stable Instructions: Antibiotic Form, Sinusitis (ED) Patient Language: Luxembourgish Prescriptions: New azithromycin 250 mg tablet See Rx Instructions .ROUTE .COMPLEX Qty: 6 0RF Rx Instructions: For 250 mg dose pack: take 500 mg today (day 1), then 250 mg for 4 days (days 2-5) No Action metoprolol tartrate 50 mg tablet 50 mg PO DAILY lamotrigine 100 mg tablet 100 mg PO DAILY methylphenidate HCl [Concerta] 27 mg tablet extended release 24hr 27 mg PO DAILY (DME) Aerochamber Plus Z Stat Spacer See Rx Instructions .Route Qty: 1 0RF Rx Instructions: As directed Follow-up/Referrals: UNKNOWN,DOCTOR [Primary Care Provider] - Time of Disposition: 11:47
[2024-08-09 11:35] LABS: Influenza A QL RT-PCR Negative (Negative); Influenza B QL RT-PCR Negative (Negative); RSV RNA, RT-PCR Negative (Negative); SARS-CoV-2 RNA PCR Negative (Negative)
== END 2024-08-09 11:48 | disposition home or self-care (01) ==
PROVIDERS: Emergency Provider Emergency Medicine
DX: J01.90 Acute sinusitis, unspecified (principal); F17.290 Nicotine dependence, other tobacco product, uncomplicated; Z20.822 Contact with and (suspected) exposure to COVID-19
CPT/HCPCS: 71046; 87637; 99283

== ENCOUNTER 2025-02-04 17:42 | Outpatient (CLI) | payer OTHER, SELFPAY ==
--- OUTSIDE RECORDS SUMMARY | 2025-02-04 17:46 | XMS_ITS | Clinical Summary ---
Author Organization [facility] Address [facility] [place] [address] Care Team Providers Care Master Electrician Name Role Phone Rosalina Gage NP Primary Care Provider Allergies No known active allergies Medications metoprolol tartrate 25 MG tablet Take 25 mg by mouth daily. 10/24/2019 Active Active Problems Problem Noted Date Diagnosed Date SVT (supraventricular tachycardia) ([facility]/H[facility]) Family History Medical History Relation Comments No Known Problems Father Colon Cancer Maternal Aunt Hypertension Maternal Aunt No Known Problems Mother Relation Status Comments Father Alive Maternal Aunt Mother Alive Social History Tobacco Use Types Packs/Day Years Used Date Smoking Tobacco: Former Cigarettes Q uit: 2019 Smokeless Tobacco: Never Alcohol Use Standard Drinks/Week Comments Not Currently 0 (1 standard drink = 0.6 oz pur e alcohol) Comments No Sex and Gender Information Value Date Recorded Sex Assigned at Not on file Legal Sex Female 7:28 PM CDT Gender Identity Not on file Sexual Orientation Not on file Last Filed Vital Signs Vital Sign Reading Time Taken Comments Blood Pressure 101/65 01/16/2024 4:30 PM CDT Pulse 60 01/16/2024 4:30 PM CDT Temperature 37 C (98.6 F) 01/16/2024 2:54 PM CDT Respiratory Rate 12 01/16/2024 4:30 PM CDT Oxygen Saturation 100% 01/16/2024 4:30 PM CDT Inhaled Oxygen Concentration - - Weight 92.1 kg (203 lb) 01/16/2024 2:52 PM CDT Height 157.5 cm (5' 2) 01/16/2024 2:52 PM CDT Body Mass Index 37.13 01/16/2024 2:52 PM CDT Plan of Treatment Health Maintenance Due Date Last Done Comments Cervical Cancer Screening Pap Smear (Age 21 to 29) Every 3 Years 1996 Cervical Cancer Screening 1996 Annual Physical 1999 Hepatitis C 2014 DTaP, Tdap and Td Vaccines (7 - Td or Tdap) 01/20/2017 01/20/2007, 01/17/2001, 08/28/1997, Additional history exists COVID-19 Vaccine (2023- season) 2024 Hepatitis B Vaccines Completed 1996, 1996, 1996 HPV Vaccines Completed 08/02/2007, 03/09, 01/20/2007 Meningococcal Vaccine Completed 03/09/2013, 011 Meningococcal B Vaccine Aged Out No l onger eligible based on patient's age to complete this topic Pneumococcal Vaccine: Pediatrics (0 to 5 Years) and At-Risk Patients (6 to 49 Years) Aged Out No longer eligible based on patient's age to complete this topic RSV Immunizations Under 20 Months Aged Out No longer eligible based on patient's age to complete this topic Insurance [employer] Care Teams Master Electrician Relationship Specialty Start Date End Date Rosalina Gage NP [address] [place] [address] PCP - General Nurse Practitioner Family 01/16/24
--- OUTSIDE RECORDS SUMMARY | 2025-02-04 17:46 | XMS_ITS | Data Portability ---
Author Organization Eayun , [facility] Address [address] [place] [address] Assessment No assessment recorded. Plan of Treatment Reminders Order Date Submit Date Provider Last Modified By Organization Details Last Modified Time Details Appointments None recorded. Lab test, urine 2021 022 [id number] 0 [facility], [address] [place], [address], 2 11:44:49 CT + NG DNA, PCR, unspecified specimen 2021 022 [employer] [facility], [address] [place], [address], 2 10:31:08 unlisted lab - Pap reflex hold 2021 022 [employer] [facility], [address] [place], [address], 2 10:25:47 pap, LB 2021 022 [employer] [facility], [address], [place], [address], 2 18:04:33 Referral pelvic floor therapy referral 2022 023 [facility], [address] [place], [address], 3 14:47:07 Procedures None recorded. Surgeries None recorded. Imaging None recorded. Medication Orders norethindro ne (contracept bonnie) 0.35 mg tablet 2022 023 joni barnes [facility], [address] [place], [address], 4 14:40:37 Lo Loestrin Fe 1 mg-10 mcg (24)/10 mcg (2) tablet 2021 022 [facility], [address] [place], [address], 2 17:42:47 Patient TargetsNo targets recorded. Patient Instructions Encounter Date Encounter Id Patient Instructions Last Modified By Organization Details Last Modified Time 02/18/2022 [id number] A healthy lifestyle: care instructions [id number] Not available 02/18/2022 11:43:05 control counseling [id number] Not available 02/18/2022 11:43:05 exposure to sexually transmitted infections: care instructions [id number] Not available 02/18/2022 11:43:05 - Refrain from washcloth/loofah use, kaplan hali products, frequent pantiliner use. - Pt instructed to wear cotton underwear, changing out of workout clothes quickly, hypoallergenic soap. -Discussed vaginal hygiene. -Encouraged safe sex. - Use a detergent free of dyes, enzymes and perfumes. Avoid using fabric softeners. Soak and rinse when using a stain removing product and then wash normally. Do not use a fabric softener. Soak and rinse in clear water all underwear and towels on when you have used a stain removing product. Then wash in your regular washing cycle. -Avoid tight clothing, especially clothing made of synthetic fabrics. Remove wet bathing and exercise clothing as soon as you can. - Avoid bath soaps, lotions, gels, etc. which contain perfumes. This includes many baby products and feminine hygiene products marked mild or for vaginal health. We suggest any of the following soaps: Dove-Hypoallergeni c, Neutrogena, Basis, or Pearls. Do not use soap directly on the vulvar skin just warm water and your hand will keep the vulvar area clean without irritating the skin. - Avoid all bubble baths, bath salts and scented oils. -Do not use hot water while bathing or showering. Only luke-warm water should only be used. -Avoid all feminine hygiene sprays, perfumes, adult, or baby wipes. Pour lukewarm water over the vulva after urinating if urine causes burning of the skin. Pat dry rather than rubbing with a towel. - Avoid the use of deodorized pads and tampons. Tampons should be used when the blood flow is heavy enough to soak one tampon in four hours or less. Tampons are safe for most women, but wearing them too long or when the blood flow is light may result in vaginal infection, increased discharge, odor, or toxic shock syndrome. Also, use only pads that have a cotton liner that comes in contact with your skin (no dry weave pads). - Avoid all over the counter creams or ointments, except A&D Ointment (if you have wool allergy do not use A&D). -DO NOT DOUCHE. Baking soda soaks will help rinse away extra discharge and help with odor. -DO NOT SHAVE, wax or laser the vulvar area (the bikini line is ok). -Some women may have problems with chronic dampness. Keeping dry is important. Choose cotton fabrics whenever you can. -Keep an extra pair of underwear with you in a small bag and change if you become damp during the day at work/school. -Gold Benitez Powder or Zeosorb Powder may be applied to the vulva and groin area one to two times per day to help absorb moisture. -Dryness and irritation during intercourse may be helped by using a lubricant. Use a small amount of a pure vegetable oil/olive oil or Crisco (solid or oil). The vegetable oils contain no chemicals to irritate vulvar/vaginal skin. Vegetable oils will rinse away with water and will not increase your chances of infection. Water-based products like K-Y Jelly are helpful, but may tend to dry before intercourse is over and also contain chemicals that can irritate your vulvar skin. It may be helpful to use a non-lubricated, non-spermicidal condom, and use vegetable oil as the lubricant. This will help keep the semen off the skin which can decrease burning and irritation after intercourse. CONTROL OPTIONS 1. All hormonal contraceptives will have an effect on vaginal secretions but should not increase your frequency of vaginitis. 2. Lubricated condoms, contraceptive jellies, creams, or sponges may cause itching and burning. Ask your health care provider for help. 3. The use of latex condoms with a vegetable oil as a lubricant (#14 above) is suggested to protect your skin. Oil based lubricants may affect the integrity of condoms when used for control or prevention of sexually transmitted diseases. Our experience has not found this to be a problem with vegetable based oils. However, the Centers for Disease Control recommends that condoms not be used with any oil based lubricants for control or prevention of sexually transmitted disease. Discussed ureaplasma/mycopla sma testing and treatment, if indicated. [email or web address] Not available 02/17/2022 14:13:17 06/27/2023 [id number] learning about control [email or web address] Not available 06/27/2023 13:46:32 Reason for Referral Pelvic Floor Therapy Referra l for Uterine prolapse Referring Physician: Vianney Milsl, GEOLOGICAL TECHNICIAN, Encounter Date: 06/27/2023 Results Created Date Observation Date Name Description Value Unit Range Abnormal Flag Note LastModifiedBy Organization Detail LastModifiedTime 02/19/2002/18/2022 PAP REFLE X HOLD Pap reflex hold merged to [id number] Not Available [facility] [address] [place], [address], 02/19/2022 10:25:47 02/19/20 22 02/19/2022 PAP REFLE X HOLD Pap reflex hold Receiv ed receiv ed Not Available [address] [place], [address], 02/19/2022 10:31:08 02/19/20 22 02/19/2022 CT/NG chlamydia trachomatis CT neg negati ve normal This repor t is inten ded for us in clini christine monit oring and manag ement of robyn holt. It is not inten ded for use in medic al-le gal appli catio n. Not Available [address] [place], [address], 02/19/2022 15:20:22 02/19/20 22 02/19/2022 CT/NG neisseria gonorrhoeae GC neg negati ve normal This repor t is inten ded for us in clini christine monit oring and manag ement of robyn holt. It is not inten ded for use in medic al-le gal appli catio n. Not Available [facility] [address] [place], [address], 02/19/2022 15:20:22 02/19/20 22 02/23/2022 THINP REP TIS PAP clinical information: normal Infor matio n not provi ded Not Available [address] [place], [address], 02/23/2022 18:04:33 02/19/20 22 02/23/2022 THINP REP TIS PAP LMP: normal INFOR MATIO N NOT PROVI DED Not Available [address] [place], [address], 02/23/2022 18:04:33 02/19/20 22 02/23/2022 THINP REP TIS PAP prev. Pap: normal INFOR MATIO N NOT PROVI DED Not Available [address] [place], [address], 02/23/2022 18:04:33 02/19/20 22 02/23/2022 THINP REP TIS PAP prev. BX: normal INFOR MATIO N NOT PROVI DED Not Available [address] [place], [address], 02/23/2022 18:04:33 02/19/20 22 02/23/2022 THINP REP TIS PAP source: normal Cervi x Not Available [address] [address] [place], [address], 02/23/2022 18:04:33 02/19/20 22 02/23/2022 THINP REP TIS PAP statement of adequacy: normal Satis facto ry for evalu ation . Endoc ervic al/tr ansfo rmati on zone compo nent prese nt. Age and/o r menst rual statu s not provi ded Not Available [address] [address] [place], [address], 02/23/2022 18:04:33 02/19/20 22 02/23/2022 THINP REP TIS PAP interpretati on/result: normal Negat bonnie for intra epith elial lesio n or malig rakel . Not Available [address] [address] [place], [address], 02/23/2022 18:04:33 02/19/20 22 02/23/2022 THINP REP TIS PAP comment: normal This Pap test has been evalu ated with compu ter rafaela dung techn ology . Not Available [address] [address] [place], [address], 02/23/2022 18:04:33 02/19/20 22 02/23/2022 THINP REP TIS PAP cytotechnolo gist: normal MMW, CT( CP) CT scree james locat ion: [address] [address] [place] [address] Not Available [address] [address] [place], [address], 02/23/2022 18:04:33 02/19/20 22 02/23/2022 THINP REP TIS PAP review cytotechnolo gist: normal MVB, CT( CP) CT Scree james Locat ion: [address] [address] [place] [address] Not Available [address] [address] [place], [address], 02/23/2022 18:04:33 02/19/20 22 02/23/2022 THINP REP TIS PAP comment EXPLA NATOR Y NOTE: The Pap is a scree james test for cervi christine cance r. It is not a diagn ostic test and is subje ct to false negat bonnie and false posit bonnie resul ts. It is most relia ble when a satis facto ry sampl e, regul sameer obtai martin, is submi tted with relev ant clini christine findi ngs and histo ry, and when the Pap resul t is evalu ated along with histo destinee and curre nt clini christine infor matio n. Not Available [facility] [address] [place], [address], 02/23/2022 18:04:33 02/19/2002/18/2022 pregn bhavin test, urine HCG negati ve Not Available [address], [place], [address], 02/18/2022 11:44:15 Result Notes None recorded. Problems No Known Problems Procedures Surgical History Date Name Laterality Status Provider Name and Address Organization Details Recorded Time 02/19/20 Date of Last Pap Smear completed Ita Corey [facility] [employer] [facility] 01/16/2024 14:41:04 Heart surgery completed Nely Pearson [facility] [facility] 06/27/2023 11:11:16 Imaging Results None recorded. Procedure Notes None recorded. Medical Equipment None Reported. Allergies Allergen ID Allergen Name Allergen Category Reaction Reaction Severity Criticality Documentation Date Start Date Code Code System Note Provider Name and Address Organization Details Recorded Time 605787 latex environme nt,medica tion Not available Not available Not available 02/18/2022 38082 91 RxNorm Juli campos, [place] [employer] IV 11:21:55 Medications Name Sig Start Date Stop Date Status Note LastModified by Organization Details LastModified Time Mirena 21 mcg/24 hr (up to 8 years) 52 mg intrauter ine device 02/18 completed Mirena 20 mcg/24 hours (5 yrs) 52 mg Intraute rine Intraute rine Device RxNorm: 965425 Allow Substitu tion: False Refill Denied: No Refill DateOccu rred: 10/10/19 21 Edited by: [email or web address] ki(Cheryl Zavala ) on 11/06/19 21 Stopped by: yahir rodriguez(Cheryl Zavala ) on Not Available Not Available Not Available Miralax 17 gram/dose oral powder Take 17 g every day by oral route. 2023 active Not Available Not Available Not Avai lable lamotrigi ne 150 mg tablet TAKE 1 TABLET BY MOUTH ONCE DAILY 06/27 completed Not Available Not Available Not Available clonidine HCl 0.1 mg tablet TAKE 1 TABLET BY MOUTH THREE TIMES DAILY NEEDED 02/18 completed Not Available Not Available Not Available loperamid e 2 mg capsule TAKE 1 CAPSULE BY MOUTH 4 TIMES DAILY 02/18 completed Not Available Not Available Not Available Concerta 18 mg tablet,ex tended release 01/15 completed Not Available Not Available Not Available azithromy harsha 250 mg tablet TAKE 2 TABLETS BY MOUTH ON DAY 1, AND THEN TAKE 1 TABLET BY MOUTH ONCE A DAY ON DAY 2 THROUGH DAY 5 02/18 completed Not Available Not Available Not Available hydrocodo ne 5 mg-acetam inophen 325 mg tablet TAKE 1 TABLET BY MOUTH EVERY 6 HOURS NEEDED FOR PAIN 02/18 completed Not Available Not Available Not Available risperido ne 0.25 mg tablet TAKE 1 TABLET BY MOUTH IN THE MORNING AND 1 BEFORE BEDTIME 06/27 completed Not Available Not Available Not Available doxepin 10 mg capsule TAKE 1 CAPSULE BY MOUTH EVERY DAY AT BEDTIME FOR 30 DAYS 01/15 completed Not Available Not Available Not Available bupropion HCl SR 100 mg tablet,12 hr sustained -release TAKE 1 TABLET BY MOUTH ONCE DAILY IN THE MORNING 06/27 completed Not Available Not Available Not Available lamotrigi ne 25 mg tablet TAKE 2 TABLETS BY MOUTH ONCE DAILY FOR 15 DAYS (TAKE TOTAL OF 50 MG DAILY FOR 15 DAYS THEN INCREASE TO 100 MG) 02/18 completed Not Available Not Available Not Available sulfaceta mide sodium 10 % eye drops 02/18 completed Not Available Not Available Not Available buspirone 10 mg tablet TAKE 1 TABLET BY MOUTH TWICE DAILY 06/27 completed Not Available Not Available Not Available metoprolo l tartrate 50 mg tablet TAKE 1 TABLET BY MOUTH EVERY DAY active Not Available Not Available No t Available docusate sodium 100 mg capsule Take 1 capsule every 12 hours by oral route. active Not Available Not Available No t Available ergocalci ferol (vitamin D2) 1,250 mcg (50,000 unit) capsule TAKE 1 CAPSULE BY MOUTH ONCE A WEEK 06/27 completed Not Available Not Available Not Available methylpre dnisolone 4 mg tablets in a dose pack TAKE BY MOUTH DIRECTED ON INSIDE OF PACKAGE 02/18 completed Not Available Not Available Not Available albuterol sulfate HFA 90 mcg/actua tion aerosol inhaler INHALE 2 PUFFS BY MOUTH 4 TIMES DAILY NEEDED FOR SHORTNES S OF BREATH FOR WHEEZING 02/18 completed Not Available Not Available Not Available norethind srinivas (contrace ptive) 0.35 mg tablet TAKE 1 TABLET BY MOUTH ONCE DAILY active Not Available Not Available No t Available sertralin e 50 mg tablet TAKE 1/2 (ONE-ADELE F) TABLET BY MOUTH ONCE DAILY FOR 7 DAYS THEN 1 ONCE DAILY FOR 30 DAYS 06/27 completed Not Available Not Available Not Available lamotrigi ne 100 mg tablet TAKE 1/2 TABLET BY MOUTH TWICE A DAY active Not Available Not Available No t Available risperido ne 0.5 mg tablet TAKE 1 TABLET BY MOUTH ONCE DAILY 06/27 completed Not Available Not Available Not Available buspirone 15 mg tablet TAKE 1 TABLET BY MOUTH TWICE DAILY 06/27 completed Not Available Not Available Not Available Concerta 27 mg tablet,ex tended release TAKE 1 TABLET BY MOUTH EVERY DAY IN THE MORNING FOR 30 DAYS 01/15 completed Not Available Not Available Not Available dextroamp hetamine- amphetami ne ER 5 mg 24hr capsule,e xtend release TAKE 1 CAPSULE BY MOUTH ONCE DAILY IN THE MORNING FOR 14 DAYS 01/15 completed Not Available Not Available Not Available etonogest rel 0.12 mg-ethiny l estradiol 0.015 mg/24 hr vaginal ring insert 1 vaginal ring by vaginal route once a month leave in place for 3 weeks, remove for 1 week 10/02 completed etonoges treL-eth inyl estradio L 0.12-0.0 15 mg/24 hr Vaginal Ring, Vaginal RxNorm: [id number] Allow Substitu tion: True Refill Denied: No Edited by: Guerita Padilla ) on 10/02/19 [facility]Amandeep santa Guerita ) on 10/02/19 21 Not Available Not Available Not Available escitalop ledy 10 mg tablet TAKE 1 TABLET BY MOUTH ONCE DAILY 06/27 completed Not Available Not Available Not Available cyclobenz aprine 5 mg tablet take 1 tablet (5 mg) by oral route 3 times per day as needed for pain. 12/04 completed cycloben zaprine 5 mg oral tablet RxNorm: [id number] Allow Substitu tion: True Refill Denied: No Edited by: Tanya Pearce ) on 12/05/19 Stopped by: Tanya Pearce ) on 12/05/19 Not Available Not Available Not Available aripipraz ole 5 mg tablet TAKE 1 TABLET BY MOUTH ONCE DAILY 06/27 completed Not Available Not Available Not Available bupropion HCl XL 150 mg 24 hr tablet, extended release TAKE 1 TABLET BY MOUTH IN THE MORNING FOR 30 DAYS 06/27 completed Not Available Not Available Not Available metoprolo l tartrate 25 mg tablet take 1 tablet (25 mg) by oral route once daily 06/25 completed metoprol ol tartrate 25 mg oral tablet RxNorm: 578051 Allow Substitu tion: True Refill Denied: No Edited by: nidia(Barb Keith ) on 06/25/20 Stopped by: nidia(Barb Keith ) on 06/25/20 Not Available Not Available Not Available 12/04 completed Allow Substitu tion: False Refill Denied: No Refill DateOccu rred: 10/24/19 Edited by: Tanya Pearce ) on 12/05/19 Stopped by: Tanya Pearce ) on 12/05/19 Not Available Not Available Not Available Vyvanse 30 mg capsule TAKE 1 CAPSULE BY MOUTH ONCE DAILY IN THE MORNING 06/27 completed Not Available Not Available Not Available guanfacin e ER 2 mg tablet,ex tended release 24 hr TAKE 1 TABLET BY MOUTH ONCE DAILY AT NIGHT 06/27 completed Not Available Not Available Not Available guanfacin e ER 1 mg tablet,ex tended release 24 hr TAKE 1 TABLET BY MOUTH ONCE DAILY FOR 30 DAYS 06/27 completed Not Available Not Available Not Available Lo Loestrin Fe 1 mg-10 mcg (24)/10 mcg (2) tablet Take 1 tablet every day by oral route. 02/26 completed Not Available Not Available Not Available 28 mg iron-800 mcg tablet 1 tablet by mouth daily 06/25 completed 28 mg iron- 800 mcg oral tablet Allow Substitu tion: True Refill Denied: No Edited by: nidia(Barb Keith ) on 06/25/20 Stopped by: Barb Chadwick ) on 06/25/20 20 Not Available Not Available Not Available Enskyce 0.15 mg-0.03 mg tablet Take 1 tablet every day by oral route. 06/25 completed Not Available Not Available Not Available Vraylar 1.5 mg capsule TAKE 1 CAPSULE BY MOUTH A ONE TIME DOSE 06/27 completed Not Available Not Available Not Available Vraylar 3 mg capsule TAKE 1 CAPSULE BY MOUTH ONCE DAILY 06/27 completed Not Available Not Available Not Available ID NOW COVID-19 Test Kit TEST DIRECTED TODAY 06/25 completed Not Available Not Available Not Available Space Chamber with Large Mask USE DIRECTED 02/18 completed Not Available Not Available Not Available Zafemy 150 mcg-35 mcg/24 hr transderm al patch APPLY 1 PATCH TOPICALL Y ONCE A WEEK 02/18 completed Not Available Not Available Not Available Vitals Date Recorded Body height Body mass index (BMI) Body weight Body temperature Systolic And Diastolic Provider Name and Address Organization Details Last Updated DateTime 01/16/2024 157.48 cm 38 kg/m2 18816.2 1 g 98 [degF] 110/70 mm[Hg] Ita Corey [facility] 14:40:04 Date Recorded Body height Body mass index (BMI) Body weight Systolic And Diastolic Provider Name and Address Organization Details Last Updated DateTime 02/18/2022 157.48 cm 36.8 kg/m2 70281.07 g 122/80 mm[Hg] Juli Torrez [place] [employer] [facility] 02/18/2022 11:19:04 Date Recorded Body height Body mass index (BMI) Body weight Systolic And Diastolic Provider Name and Address Organization Details Last Updated DateTime 06/25/2022 157.48 cm 36.5 kg/m2 61574.32 g 120/76 mm[Hg] Hannah Torrez [facility] 06/25/2022 11:40:45 Date Recorded Body weight Body mass index (BMI) Body height Systolic And Diastolic Provider Name and Address Organization Details Last Updated DateTime 06/27/2023 63604.81 g 38.2 kg/m2 157.48 cm 98/68 mm[Hg] Nely Michel [place] [employer] 06/27/2023 11:20:02 Social History Question Answer Notes LastModified by Organizat ion Details LastModified Time Tobacco Smoking Status Smoker, Current Status Unknown Nely Michel campos, [facility] 06/27/2023 11:11:11 How Many Years Have You Consumed Alcohol? 6 Information not available 06/27/2023 Are You Blind Or Do You Have Difficulty Seeing? No Information not available 06/27/2023 Are You Deaf Or Do You Have Serious Difficulty Hearing? No Information not available 06/27/2023 What Type Of Diet Are You Following? REGULAR Information not available 06/27/2023 How Many Children Do You Have? 1 [email or web address] Information not available 02/18/2022 What Is Your Relationship Status? Single [email or web address] Information not available 02/18/2022 Are You Sexually Active? No [email or web address] Information not available 02/18/2022 At What Age Did You Start Smoking Tobacco? 16 Information not available 06/27/2023 How Many Years Have You Smoked Tobacco? 7 Information not available 06/27/2023 Sex: Unknown Functional Status Question Answer Note LastModified by Organizat ion Details LastModified Time Do you use any illicit or recreational drugs? No Information not available 06/27/2023 What is your level of alcohol consumption? Occasional Information not available 06/27/2023 Are you currently employed? No Information not available 06/27/2023 What is your exercise level? Occasional Information not available 06/27/2023 Mental Status None recorded. Family History Relationship Description Onset Age of this Age Resolved Age Notes LastModified by Organization Details LastModified Time Maternal Aunt Malignant tumor of colon [email or web address] Not available 2022 13:41:24 Medical History Condition Response ADD/ADHD Y Bipolar Disorder Y Gynecological History Statement/Question Response Flow Moderate Frequency of Cycle (Q days) 28 Date of LMP 12/17/2023 Date of Last Pap Smear 02/18/2022 Duration of Flow (days) 3 Most Recent Mammogram Current Control Method None Age at Menarche 13 Obstetrics History GPAL:G 1 P 1 0 0 1 Type Value Full Term 1 Living 1 Total 1 Past Encounters Encounter ID Performer Location Encounter Start Date Encounter Closed Date Diagnosis/Indication Diagnosis SNOMED-CT Code Diagnosis ICD10 Code Diagnosis Note [id number] [facility] [address] [place] [address] 02/18/2022 11:13:58 02/18/2022 11:43:10 Gynecologic examination 76798750 Z01.419 Screening for malignant neoplasm of cervix 485762188 Z12.4 Surveill[place] ce of contraception 353994258 Z30.40 Discussed all methods of control. Risks/bene fits of each discussed. She is interested in OCP use. Risks/side effects of Lo Loestrin discussed [id number] Lori Xavier, DO [facility] [address] [place] [address] 06/25/2022 11:34:01 06/25/2022 12:12:32 Female stress incontinence 05507021 N39.3 JUSTINA - Discussed etiology and general treatment options including behavior modificati on, pelvic floor muscle strengthen ing, procedural options including slings, others - No significan t POP on exam, tissue appears well estrogeniz ed - Pt declined PFPT. Will work on kegel exercises Constipation 55124931 K5 9.00 Pt recently changed diet from dairy to non-dairy as she is lactose intoleranc e and BMs have become more solid. Patient presents with constipati on. Recommend increasing oral fluids with non-caffei nated, non-alcoho lic beverages. Increase daily dietary fiber. May drink prune juice or pear juice to initiate bowel regularity and then decrease as needed to maintain a once daily or every other day bowel habit. Follow up as needed, or sooner if new symptoms develop. [id number] JILLIAN Roberto [facility] [address] [place] [address] 06/27/2023 10:48:31 06/27/2023 16:46:54 Gynecologic examination 68663349 Z01.411 Pt educated on ACOG and ASCCP guidelines for breast, ovarian, and cervical cancer screenings . Exam WNL. Plan for F/U PRN or for next WWE. Depression screening 171 224398 Z13.31 PHQ9: 9. Pt educated on abnormal scoring, and discussed recommenda tion for continued management with psych and PCP. Pt was recently taken off several medication s for mood and Rx'd Lamictal and Adderall. Pt educated on when to notify HCP/go to ER. Uterine prolapse 4121015 5 N81.4 Pt educated on exam findings c/w complaints of discomfort and needing to manually push back vaginal tissues to have a BM. Pt educated on stool softener use PRN, increasing p.o. water intake, and recommenda tion for referral to pelvic floor therapy. Plan to F/U in office if sx persistent and no relief with PT. Initial pr escription of oral contraception 253376738 Z30.011 Pt educated on all available progestero ne only contracept bonnie methods and discussed limitation s with estrogren use d/t Lamictal use. Pt states preference to use pills. Rx for Micronor sent. Pt advised on consistent use, and to use a back up method for the first month and any time she may miss dosing schedule. Plan to F/U for med check appt in 3 months. Pt states understand ing of POC. Family his tory of cancer of colon [id number] Z80.0 Pt educated on optional early colon cancer screenings 10 years sooner than family member's dx and MyRisk testing. Pt states understand ing and will consider. Pt to notify HCP if would like to proceed with GI referral or hereditary testing. [id number] Carlos Eduardo Lopez DO [facility] [address] [place] [address] 01/16/2024 14:15:34 01/17/2024 11:33:13 Constipation [id number] K59.00 Additional diagnosis detail: Constipati on, unspecifie d constipati on typeStarte d her on Colace 100 mg to be taken as directed.R efill order sent for MiraLAX 17 grams to be taken as before.Adv ised to keep her stools softer with high fiber diet.Recom mended doing Kegel's exercises to strengthen her vaginal muscles. Family carlyn nning education [id number] Z30.09 Refill provided for norethindr one 0.35 mg to be taken as directed. Health Concerns Section Related Observation LastModified by Organization Detai ls LastModified Time None Recorded Concern Status LastModified by Organization Details LastModified Time None Recorded Advance Directives Directive None Recorded Payers Insurance Date Sequence Insurance Name Policy Number Policy Mai Covered Member ID Mai Member ID Guarantor Name 01/16/2024 1 [facility] - DOS ON OR AFTER 21 (MEDICAID REPLACEMENT - HMO) Tamy Pink [id number] Tamy Pink Notes Date Note Type Note Provider Name and Address Organization Details Recorded Time 02/18/2022 text/html Annual GYNReport ed bypatient.Menstrual cycle:Normal menses Urinary symptoms:No hematuria; No incontinence Vulva:No genital lesion Vagina:Normal vaginal discharge Breast:No breast pain; No breast lump; No nipple discharge Sexual complaints:No sexual complaints; No pain during intercourse; Normal libido Menopausal Symptoms:No menopausal symptoms; Normal vaginal lubrication Psychological symptoms:No depression; No anxiety; No PMDDVaginal/Vulvar ProblemReported bypatient.Location:vag bahinav Alleviating Factors:none Aggravating Factors:none Associated Symptoms:no vaginal itching; no vaginal irritation; no vaginal pain; no vulvar itching/irritation Tamy is here for her AEX. She is currently not using control. She stopped her contraceptive patch because of the allergy to the adhesive. She requests GC/CT with her pap. JILLIAN Crowder [address] [facility], [place], [address], [facility] [employer] 02/18/2022 11:45:05 06/25/2022 text/html Pt is lactose intolerant and recently stopped ingesting dairy. Her BMs have changed from diarrhea to more solid. She is having to vaginal splint to have bowel movement sometimes. Also has urinary incontinence with laugh, sneeze, coughing YANETH JIMENEZ DO [address] [facility], [place], [address], [facility] [employer] 06/25/2022 12:09:15 06/27/2023 text/html Annual GYNReport ed bypatient.Menstrual cycle:Normal menses Urinary symptoms:No hematuria; No incontinence Vulva:No genital lesion Vagina:Normal vaginal discharge Breast:No breast pain; No breast lump; No nipple discharge Current Contraception:Wants to discuss contraceptive options Menopausal Symptoms:No menopausal symptoms Psychological symptoms:Depression;An xiety Pt presents to office for annual well woman exam. Pt states she is doing well. Pt reports having regular monthly cycles that are not heavy or painful. Pt characterizes bleeding as occurring every 28 days, lasting 3 days, and changes her pad every 2-3 hours out of preference not soaking them. Pt is not currently sexually active, but plans to soon. Pt. is interested in pursuing contraception. Has tried the patch--issues with adhesive, Loestrin, IUD in the past. Pt interested in a pill again, denies that she would have any difficulty remembering dosing schedule. No hx of blood clots, HTN. Last Pap: 02/2022. Pt has no personal or family history of SENIOR TELLER cancer. Family history of colon cancer, maternal aunt. Pt. thinks it was in her late 40s. Pt declines STD screening via culture and serum testing. Pt has no other concerns. Follows with PCP and psych. JILLIAN Roberto [address] [facility], [place], [address], [facility] [employer] [facility] 06/27/2023 14:09:22 01/16/2024 text/html Pelvic ProlapseReported bypatient.Location:rec armaan Quality:irritation Associated Symptoms:constipation; incomplete emptying of stoolNotes:She reports difficulty passing stool. She states she has to strain and insert her finger to complete her defecation process. She has started using MiraLAX recently for her symptoms. She was recommended to undergo physical therapy in the past, however, states she could not go. She has not tried Kegel's or pelvic floor exercises in the past. She reports that her previous delivery was complicated by first degree tear. She is requesting refill of her BCPs. The patient verbally consented to documentation via virtual scribe for this encounter. Carlos Eduardo Lopez, DO [address] [facility], [place], [address], [facility] 01/16/2024 22:18:42 OBGyn Episode Ob Episode Information Episode Created Date Number of Fetuses Patient Bloodtype Patient rh Status Prepregnancy Weight lbs Domestic Partner Domestic Partner Phone Father Name Fiber Optics Engineer Status 10/23/19 22 1 CLOSED Fetus Data First Name Last Name Admitted to NICU Weight (g) Sex Living Outcome Pediatric Complications Fetus ID Race Codes Race Delivery Type [id number] Alli Calculation Initial Alli Date Initial Exam Date Initial Exam Provider Initial Ultrasound Date Last Menstrual Period Date Ultra Sound Weeks Gestation 0 Eighteen To Twenty Week Alli Update Ultra Sound Date Fundal Height At Umbil Quickening Date Ultra Sound Latest Weeks Gestation Final Alli Confirmed By Final Alli Confirmed Date Final Alli Date Ultra Sound Latest Days Gestation 0 0 Menstrual History Last Menstrual Date Menses Monthly On Bcp Conception Prior Menses Frequency Hcg Plus Date Menarche Onset Age Delivery Information Delivery Date Delivery Type Labor Anesthesia Weeks Gestation Incision Type Labor Labor Length Hrs Delivered By Post Complications Tubal Sterilization Discharge Date Comments 0 None 280 true Discharge Information Feeding Method Contraceptive Method Maternal HG B and HCT Levels
--- OUTSIDE RECORDS SUMMARY | 2025-02-04 17:46 | XMS_ITS | Clinical Summary ---
Author Organization [facility] Address [address] [place] [address] Phone Care Team Providers Care Director Of Neighborhood Service Center Name Role Phone Maria Fernanda De La Cruz APRN, CNP Primary Care Provider Medications risperiDONE (risperDAL) 0.5 MG Tablet Take 0.5 mg by mouth 2 times daily. Active lamoTRIgine (LaMICtal) 100 MG Tablet Take 100 mg by mouth daily. 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 01/09/2025 Encounters Date Type Department Care Team Description 01/09/2025 11:00 AM CDT Outpatient Clinic Visit [facility] [address] [place] [address] Gilson Garcia PSYD Unspecified neurodevelopmental disorder (Primary Dx) Discharge Disposition: Discharged to home or Selfcare 01/09/2025 Travel from Last 3 Months Family History Relation Name Status Comments Mother Alive Son (4) Alive Social History Tobacco Use Types Packs/Day Years Used Date Smoking Tobacco: Never Smokeless Tobacco: Never Tobacco Cessation:Counseling Given: Not Answered Alcohol Use Standard Drinks/Week Comments Not Currently 0 (1 standard drink = 0.6 oz pur e alcohol) Sexually Active Control Partners Comments Not Currently Comments Unknown Sex and Gender Information Value Date Recorded Sex Assigned at Not on file Legal Sex Female 10:50 AM CDT Gender Identity Not on file Sexual Orientation Not on file Plan of Treatment Upcoming Encounters Date Type Department Care Team (Latest Contact Info) Description 02/20/2025 1:00 PM CDT [facility] [address] [place] [address] Gilson Garcia PSYD [place] Discharge Disposition: Discharged to home or Selfcare 02/28/2025 10:00 AM CDT Outpatient Clinic Visit [facility] [address] [place] [address] Gilson Garcia PSYD [place] Discharge Disposition: Discharged to home or Selfcare 03/18/2025 1:00 PM CDT Outpatient Clinic Visit [facility] [address] [place] [address] Gilson Garcia PSYD [place] Discharge Disposition: Discharged to home or Selfcare Health Maintenance Due Date Last Done Comments Hepatitis C Virus (HCV) Screening 1996 Pap Smear 2017 SARS-COV-2 Immunization (2023- season) 2024 Influenza Immunization (Seas on Ended) 2025 Respiratory Syncytial Virus (RSV) Immunization (Adult) (1 - 1-dose 75+ series) 2071 Hepatitis B Immunization Completed 997, 1996, 1996 TdaP Immunization Completed 01/20/2007 Human Papillomavirus (HPV) Immunization Completed 08/02/2007, 03/28/2007, 01/20/2007 Meningococcal Immunization (ACWY) Completed 03/09/2013, 03/05/2011 Pneumococcal Immunization Combined Aged Out No longer eligible b ased on patient's age to complete this topic Rotavirus Immunization Aged Out No lo nger eligible based on patient's age to complete this topic Goals Goal Patient Goal Type Associated Problems Recent Progress Patient-Stated? Author Psychological assessment Behavioral Health No Gilson Garcia PSYD Note: Participate fully in a psychological assessment within the next 60 days to determine whether she meets criteria for ASD or another condition. Insurance MEDICAID [employer] Care Teams Director Of Neighborhood Service Center Relationship Specialty Start Date End Date Maria Fernanda De La Cruz APRN, [employer] PIPE SUPERVISOR [address] [place] [id number] PCP - General Advanced Practice Nurse 10/25/24
--- OUTSIDE RECORDS SUMMARY | 2025-02-04 17:46 | XMS_ITS | Clinical Summary ---
Author Organization [facility] Address [address] [place] [address] Care Team Providers Care Loading Unit Operator Seating Name Role Phone Martnelda Marlena Wetzel APRN-WELDER PRODUCTION LINE GAS Primary Care Provider Source Comments [facility],non-owned Affiliates and Associated Physician Practices is amultiple site organization consisting of ambulatory clinics and hospital sitesin [place], [place], [place] and [place]. This disclosure is being madepursuant to the Care Everywhere program and may not contain all information available regarding this patient. Last updated 18.[facility] Allergies No known active allergies Medications * This document contains information received from the source organization and may not represent a complete record from that organization. * Be aware that medications may not be up to date on this document. Alwaysverify current medications with the patient. lamoTRIgine (LaMICtal) 100 MG tabletIndicatio ns:Bipolar Mood Disorder Take 1 (one) tablet by mouth once daily Reasons: Manic-Depression 30 tablet 09/12/2024 2:56 PM SUTURE GAUGER 5 Active QUEtiapine (SEROquel) 100 MG tabletIndicatio ns:Depressive Phase Bipolar Mood Disorder,Genera lized Anxiety Disorder,Insomn ia Take 1 (one) tablet by mouth at bedtime Reasons: Depressive Phase of Manic-Depression , Generalized Anxiety Disorder, Trouble Sleeping 30 tablet 09/12/2024 2:56 PM SUTURE GAUGER 5 Active metoprolol succinate XL 24hr (Toprol XL) 25 MG tabletIndicatio ns:Hypertension Take 1 (one) tablet by mouth once daily Reasons: High Blood Pressure 30 tablet 09/12/2024 2:56 PM SUTURE GAUGER 5 Active Active Problems Problem Noted Date Diagnosed Date Bipolar disorder, current ep isode depressed, severe, without psychotic features 09/08/2024 Family History Medical History Relation Name Comments [place]<65(female) Maternal Aunt Diabetes - Type 2 Other Relation Name Status Comments Maternal Aunt Other Social History Tobacco Use Types Packs/Day Years Used Date Smoking Tobacco: Never Tobacco Cessation:Counseling Given: Not Answered Alcohol Use Standard Drinks/Week Comments Not Currently 0 (1 standard drink = 0.6 oz pure alcohol) pt states, once in a blue mortensen AUDIT-C Answer Date Recorded Q1: How often do you have a drink containing alcohol? Never 09/08/2024 Q2: How many drinks containi ng alcohol do you have on a typical day when you are drinking? Patient does not drink Q3: How often do you have si x or more drinks on one occasion? Never 09/08/2024 Overall Financial Resource Strain (CARDIA) Answe r Date Recorded How hard is it for you to pa y for the very basics like food, housing, medical care, and heating? Hard 09/08/2024 PHQ-2 Answer Date Recorded Patient Health Questionnaire-2 Score 6 09/08/2024 [facility] of Occupat ional Health - Occupational Stress Questionnaire Answer Date Recorded Do you feel stress - tense, restless, nervous, or anxious, or unable to sleep at night because your mind is troubled all the time - these days? Rather much 09/08/2024 Hunger Vital Sign Answer Date Recorded Within the past 12 months, y ou worried that your food would run out before you got the money to buy more. Sometimes true Within the past 12 months, t he food you bought just didn't last and you didn't have money to get more. Never true 08/2024 PRAPARE - Transportation Answer Date Re corded In the past 12 months, has l ack of transportation kept you from medical appointments or from getting medications? Yes 08/2024 In the past 12 months, has l ack of transportation kept you from meetings, work, or from getting things needed for daily living? Yes 09/08/2024 Housing Stability Vital Sign Answer Pilo e Recorded In the last 12 months, was t here a time when you were not able to pay the mortgage or rent on time? No 09/08/2024 In the past 12 months, how m any times have you moved where you were living? 1 09/08/2024 At any time in the past 12 m [facility], were you homeless or living in a senior living (including now)? No 09/08/2024 Comments Unknown Sex and Gender Information Value Date Recorded Sex Assigned at Not on file Legal Sex Female 5:42 AM SUTURE GAUGER Gender Identity Not on file Sexual Orientation Not on file Last Filed Vital Signs Vital Sign Reading Time Taken Comments Blood Pressure 116/74 09/12/2024 8:03 AM SUTURE GAUGER Pulse 81 09/12/2024 8:03 AM SUTURE GAUGER Temperature 36.8 C (98.2 F) 09/12/2024 8:03 AM SUTURE GAUGER Respiratory Rate 16 09/12/2024 8:03 AM SUTURE GAUGER Oxygen Saturation 100% 09/12/2024 8:03 AM SUTURE GAUGER Inhaled Oxygen Concentration - - Weight 93.6 kg (206 lb 6.4 oz) 09/08/2024 4:33 A M SUTURE GAUGER Height 157.5 cm (5' 2) 09/08/2024 4:33 AM SUTURE GAUGER Body Mass Index 37.75 09/08/2024 4:33 AM SUTURE GAUGER Plan of Treatment Health Maintenance Due Date Last Done Comments HIV SCREENING 2011 HEPATITIS C SCREENING 04/29/2014 DTAP/TDAP/TD VACCINES (1 - Tdap) 2015 HEPATITIS B VACCINE (1 of 3 - 19+ 3-dose series) 2015 PAP SMEAR 2017 COVID-19 VACCINE ( - 2023-2 5 season) 2024 INFLUENZA VACCINE (Season Ended) 2025 ZOSTER VACCINE (1 of 2) 2046 HIB VACCINE Aged Out No longer eligi ble based on patient's age to complete this topic HPV VACCINE Aged Out No longer eligi ble based on patient's age to complete this topic MENINGOCOCCAL (Group B) VACC INE SHARED DECISION-MAKING Aged Out No longer eligibl e based on patient's age to complete this topic MENINGOCOCCAL GROUPS A/C/Y/W VACCINE Aged Out No longer eligible b ased on patient's age to complete this topic PNEUMOCOCCAL VACCINE Aged Out No long er eligible based on patient's age to complete this topic Insurance [facility] Advance Directives * Full Code (Latest Code Status on File) Date Activated Date Inactivated Comments 09/08/2024 4:31 AM 09/12/2024 7:17 PM Care Teams Loading Unit Operator Seating Relationship Specialty Start Date End Date Marlena Lyn, CREDIT CARD CLERK-WELDER PRODUCTION LINE GAS PCP - General 03/30/19
[2025-02-04 18:36] LABS: Alanine Aminotransferase 67 U/L (6-35); Albumin Level 4.1 g/dL (3.5-5.1); Alkaline Phosphatase 80 U/L (38-126); Aspartate Amino Transferase 47 U/L (14-36); Bilirubin Direct < 0.1 mg/dL (0-0.3); Bilirubin,Total 0.3 mg/dL (0.2-1.3); Total Protein 7.2 g/dL (6.3-8.2)
[2025-02-04 18:47] LABS: HIV 1 P24 AG Negative (Negative); HIV 1/2 AB Negative (Negative)
[2025-02-07 03:13] LABS: Hepatitis B Surface Antigen NON-REACTIVE (NON-REACTIVE); Hepatitis C Virus Antibody NON-REACTIVE (NON-REACTIVE)
== END 2025-02-04 17:43 | disposition home or self-care (01) ==
LOC: CHSLAB 17:44
PROVIDERS: PCP Internal Medicine; Visit Provider Internal Medicine
DX: R74.8 Abnormal levels of other serum enzymes (principal)
CPT/HCPCS: 36415; 80076; 86140; 86803; 87340; 87806

== ENCOUNTER 2025-02-07 12:25 | Outpatient (CLI) | payer OTHER, SELFPAY ==
--- NOTE | ~2025-02-07 | US_ITS ---
Limited Abdominal Sonogram: Real-time sonographic imaging of the right upper quadrant was performed. Clinical History: Abnormal liver enzymes Findings: The liver appears echogenic with no evidence of bile duct dilatation. 1.7 cm hypoechoic le brannon in the right hepatic lobe hepatic cyst versus other lesion. Main portal vein demonstrates normal direction of flow. The gallbladder is well distended, and appears normal with no evidence of gallsto ne or wall thickening. The common bile duct measures 4 mm. The visualized pancreas, aorta, and IVC a re unremarkable. Impression: Diffuse fatty infiltration of the liver. Suspected 1.7 cm cyst versus other hypoechoic lesion in the right hepatic lobe. Consider follow-up MR to further assess. Reviewed, dictated and finalized at [facility]. Impression: Diffuse fatty infiltration of the liver. Suspected 1.7 cm cyst versus other hypoechoic lesion in the right hepatic lobe. Consider follow-up MR to further assess.
--- OUTSIDE RECORDS SUMMARY | 2025-02-07 12:30 | XMS_ITS | Clinical Summary ---
Author Organization [facility] Address [address] [place] [address] Care Team Providers Care Tonnage Compilation Clerk Name Role Phone Martnelda Marlena Wetzel APRN-BENEFITS REPRESENTATIVE Primary Care Provider Source Comments [facility],non-owned Affiliates and Associated Physician Practices is amultiple site organization consisting of ambulatory clinics and hospital sitesin [place], [place], [place] and [place]. This disclosure is being madepursuant to the Care Everywhere program and may not contain all information available regarding this patient. Last updated 18.[facility] Allergies No known active allergies Medications * [...] Reasons: Manic-Depression 30 tablet 09/12/2024 2:56 PM PRODUCT/DEVICE TECHNOLOGIST 5 Active QUEtiapine (SEROquel) 100 MG tabletIndicatio ns:Depressive Phase Bipolar Mood Disorder,Genera lized Anxiety Disorder,Insomn ia Take 1 (one) tablet by mouth at bedtime Reasons: Depressive Phase of Manic-Depression , Generalized Anxiety Disorder, Trouble Sleeping 30 tablet 09/12/2024 2:56 PM PRODUCT/DEVICE TECHNOLOGIST 5 Active metoprolol succinate XL 24hr (Toprol XL) 25 MG tabletIndicatio ns:Hypertension Take 1 (one) tablet by mouth once daily Reasons: High Blood Pressure 30 tablet 09/12/2024 2:56 PM PRODUCT/DEVICE TECHNOLOGIST 5 Active Active Problems Problem Noted Date Diagnosed Date Bipolar disorder, current ep isode depressed, severe, without psychotic features 09/08/2024 Family History Medical History Relation Name Comments [place]<65(female) Maternal Aunt Diabetes - Type 2 Other [...] Recorded Patient Health Questionnaire-2 Score 6 09/08/2024 [facility] of Occupat ional Health - Occupational Stress [...] any time in the past 12 m [facility], were you homeless or living in a prison (including now)? No 09/08/2024 Comments Unknown Sex and Gender Information Value Date Recorded Sex Assigned at Not on file Legal Sex Female 5:42 AM PRODUCT/DEVICE TECHNOLOGIST Gender Identity Not on file Sexual Orientation Not on file Last Filed Vital Signs Vital Sign Reading Time Taken Comments Blood Pressure 116/74 09/12/2024 8:03 AM PRODUCT/DEVICE TECHNOLOGIST Pulse 81 09/12/2024 8:03 AM PRODUCT/DEVICE TECHNOLOGIST Temperature 36.8 C (98.2 F) 09/12/2024 8:03 AM PRODUCT/DEVICE TECHNOLOGIST Respiratory Rate 16 09/12/2024 8:03 AM PRODUCT/DEVICE TECHNOLOGIST Oxygen Saturation 100% 09/12/2024 8:03 AM PRODUCT/DEVICE TECHNOLOGIST Inhaled Oxygen Concentration - - Weight 93.6 kg (206 lb 6.4 oz) 09/08/2024 4:33 A M PRODUCT/DEVICE TECHNOLOGIST Height 157.5 cm (5' 2) 09/08/2024 4:33 AM PRODUCT/DEVICE TECHNOLOGIST Body Mass Index 37.75 09/08/2024 4:33 AM PRODUCT/DEVICE TECHNOLOGIST Plan of Treatment Health Maintenance Due Date [...] patient's age to complete this topic Insurance [facility] Advance Directives * Full Code (Latest Code Status on File) Date Activated Date Inactivated Comments 09/08/2024 4:31 AM 09/12/2024 7:17 PM Care Teams Tonnage Compilation Clerk Relationship Specialty Start Date End Date Marlena Lyn, WOOD MECHANIST-BENEFITS REPRESENTATIVE PCP - General 03/30/19
--- OUTSIDE RECORDS SUMMARY | 2025-02-07 12:30 | XMS_ITS | Data Portability ---
Author Organization [employer] , [facility] Address [address] [place] [address] Assessment No assessment recorded. Plan of Treatment Reminders Order Date Submit Date Provider Last Modified By Organization Details Last Modified Time Details Appointments None recorded. Lab test, urine 2021 022 0 [facility], [address] [place], [address], 2 11:44:49 CT + NG DNA, PCR, unspecified specimen 2021 022 [facility] Daryn, [address] [place], [address], 2 10:31:08 unlisted lab - Pap reflex hold 2021 022 [facility] Daryn, [address] [place], [address], 2 10:25:47 pap, LB 2021 022 Dig[facility], [address] [facility], [place], [address], 2 18:04:33 Referral pelvic floor therapy referral 2022 023 [facility], [address] [place], [address], 3 14:47:07 Procedures None recorded. Surgeries None recorded. Imaging None recorded. Medication Orders norethindro ne (contracept bonnie) 0.35 mg tablet 2022 023 joni barnes [facility], [address] [place], [address], 4 14:40:37 Lo Loestrin Fe 1 mg-10 mcg (24)/10 mcg (2) tablet 2021 022 HODA [facility], [address] [place], [address], 2 17:42:47 Patient TargetsNo targets recorded. Patient Instructions Encounter Date Encounter Id Patient Instructions Last Modified By Organization Details Last Modified Time 02/18/2022 [id number] A healthy lifestyle: care instructions [email or web address] Not available 02/18/2022 11:43:05 control counseling [email or web address] Not available 02/18/2022 11:43:05 exposure to sexually transmitted infections: care instructions [email or web address] Not available 02/18/2022 11:43:05 - Refrain from [...] ureaplasma/mycopla sma testing and treatment, if indicated. [email or web address] Not available 02/17/2022 14:13:17 06/27/2023 [id number] learning about control [email or web address] Not available 06/27/2023 13:46:32 Reason for Referral Pelvic Floor Therapy Referra l for Uterine prolapse Referring Physician: Vianney Mills, THERMOMETER PRODUCTION WORKER, Encounter Date: 06/27/2023 Results Created Date Observation Date Name Description Value Unit Range Abnormal Flag Note LastModifiedBy Organization Detail LastModifiedTime 02/19/2002/18/2022 PAP REFLE X HOLD Pap reflex hold merged to [id number] Not Available [facility] ol [address] [place], [address], 02/19/2022 10:25:47 02/19/20 22 02/19/2022 PAP REFLE X HOLD Pap reflex hold Receiv ed receiv ed Not Available [facility] [address] [place], [address], 02/19/2022 10:31:08 02/19/20 22 02/19/2022 CT/NG chlamydia trachomatis CT neg negati ve normal This repor t is inten ded for us in clini christine monit oring and manag ement of robyn holt. It is not inten ded for use in medic al-le gal appli catio n. Not Available [facility] [address] [place], [address], 02/19/2022 15:20:22 02/19/20 22 02/19/2022 CT/NG neisseria gonorrhoeae GC neg negati ve normal This repor t is inten ded for us in clini christine monit oring and manag ement of robyn holt. It is not inten ded for use in medic al-le gal appli catio n. Not Available [facility] [address] [place], [address], 02/19/2022 15:20:22 02/19/20 22 02/23/2022 THINP REP TIS PAP clinical information: normal Infor matio n not provi ded Not Available [address] [place], [address], 02/23/2022 18:04:33 02/19/20 22 02/23/2022 THINP REP TIS PAP LMP: normal INFOR MATIO N NOT PROVI DED Not Available [address] [place], [address], 02/23/2022 18:04:33 02/19/20 22 02/23/2022 THINP REP TIS PAP prev. Pap: normal INFOR MATIO N NOT PROVI DED Not Available [address] [place], [address], 02/23/2022 18:04:33 02/19/20 22 02/23/2022 THINP REP TIS PAP prev. BX: normal INFOR MATIO N NOT PROVI DED Not Available [address] [place], [address], 02/23/2022 18:04:33 02/19/20 22 02/23/2022 THINP REP TIS PAP source: normal Cervi x Not Available [address] [address] [place], [address], 02/23/2022 18:04:33 02/19/20 22 02/23/2022 THINP REP TIS PAP statement of adequacy: normal Satis facto ry for evalu ation . Endoc ervic al/tr ansfo rmati on zone compo nent prese nt. Age and/o r menst rual statu s not provi ded Not Available [address] [address] [place], [address], 02/23/2022 18:04:33 02/19/20 22 02/23/2022 THINP REP TIS PAP interpretati on/result: normal Negat bonnie for intra epith elial lesio n or malig rakel . Not Available [address] [address] [place], [address], 02/23/2022 18:04:33 02/19/20 22 02/23/2022 THINP REP TIS PAP comment: normal This Pap test has been evalu ated with compu ter rafaela dung techn ology . Not Available [address] [address] [place], [address], 02/23/2022 18:04:33 02/19/20 22 02/23/2022 THINP REP TIS PAP cytotechnolo gist: normal MMW, CT( CP) CT scree james locat ion: [address] [address] [place] [address] Not Available [address] [address] [place], [address], 02/23/2022 18:04:33 02/19/20 22 02/23/2022 THINP REP TIS PAP review cytotechnolo gist: normal MVB, CT( CP) CT Scree james Locat ion: [address] [address] [place] [address] Not Available [address] [address] [place], [address], 02/23/2022 18:04:33 02/19/20 22 02/23/2022 THINP REP [...] clini christine infor matio n. Not Available [facility] [address] [place], [address], 02/23/2022 18:04:33 02/19/2002/18/2022 pregn bhavin test, urine HCG negati ve Not Available [address], [place], [address], 02/18/2022 11:44:15 Result Notes None recorded. Problems No Known Problems Procedures Surgical History Date Name Laterality Status Provider Name and Address Organization Details Recorded Time 02/19/20 Date of Last Pap Smear completed Ita Corey [facility] Mister Bell IV 01/16/2024 14:41:04 Heart surgery completed Nely Pearson [facility] M[facility] Bell IV 06/27/2023 11:11:16 Imaging Results None recorded. Procedure Notes None recorded. Medical Equipment None Reported. Allergies Allergen ID Allergen Name Allergen Category Reaction Reaction Severity Criticality Documentation Date Start Date Code Code System Note Provider Name and Address Organization Details Recorded Time 971793 latex environme nt,medica tion Not available Not available Not available 02/18/2022 70200 91 RxNorm Juli campos, [place] [employer] IV 11:21:55 Medications Name Sig Start Date Stop Date Status Note LastModified by Organization Details LastModified Time Mirena 21 mcg/24 hr (up to 8 years) 52 mg intrauter ine device 02/18 completed Mirena 20 mcg/24 hours (5 yrs) 52 mg Intraute rine Intraute rine Device RxNorm: 155147 Allow Substitu tion: False Refill Denied: No [...] 15 mg/24 hr Vaginal Ring, Vaginal RxNorm: 9192381 Allow Substitu tion: True Refill Denied: No Edited by: Guerita Padilla ) on 10/02/19 [facility]Amandeep santa Guerita ) on 10/02/19 21 Not Available Not Available Not Available escitalop ledy 10 mg tablet TAKE 1 TABLET BY MOUTH ONCE DAILY 06/27 completed Not Available Not Available Not Available cyclobenz aprine 5 mg tablet take 1 tablet (5 mg) by oral route 3 times per day as needed for pain. 12/04 completed cycloben zaprine 5 mg oral tablet RxNorm: 222295 Allow Substitu tion: True Refill Denied: No [...] ol tartrate 25 mg oral tablet RxNorm: 325090 Allow Substitu tion: True Refill Denied: No [...] Updated DateTime 01/16/2024 157.48 cm 38 kg/m2 06763.2 1 g 98 [degF] 110/70 mm[Hg] Ita Corey [employer] IV 14:40:04 Date Recorded Body height Body mass index (BMI) Body weight Systolic And Diastolic Provider Name and Address Organization Details Last Updated DateTime 02/18/2022 157.48 cm 36.8 kg/m2 97224.07 g 122/80 mm[Hg] Juli Torrez [place] [employer] [facility] 02/18/2022 11:19:04 Date Recorded Body height Body mass index (BMI) Body weight Systolic And Diastolic Provider Name and Address Organization Details Last Updated DateTime 06/25/2022 157.48 cm 36.5 kg/m2 44951.32 g 120/76 mm[Hg] Hannah Torrez [employer] 06/25/2022 11:40:45 Date Recorded Body weight Body mass index (BMI) Body height Systolic And Diastolic Provider Name and Address Organization Details Last Updated DateTime 06/27/2023 05603.81 g 38.2 kg/m2 157.48 cm 98/68 mm[Hg] Nely Michel [place] [employer] 06/27/2023 11:20:02 Social History Question Answer Notes LastModified by Organizat ion Details LastModified Time Tobacco Smoking Status Smoker, Current Status Unknown Nely Michel campos, [employer] 06/27/2023 11:11:11 How Many Years Have You Consumed Alcohol? 6 Information not available 06/27/2023 Are You Blind Or Do You Have Difficulty Seeing? No Information not available 06/27/2023 Are You Deaf Or Do You Have Serious Difficulty Hearing? No Information not available 06/27/2023 What Type Of Diet Are You Following? REGULAR Information not available 06/27/2023 How Many Children Do You Have? 1 [email or web address] Information not available 02/18/2022 What Is Your Relationship Status? Single [email or web address] Information not available 02/18/2022 Are You Sexually Active? No [email or web address] Information not available 02/18/2022 At What Age [...] SNOMED-CT Code Diagnosis ICD10 Code Diagnosis Note [id number] JILLIAN Crowder [facility] [address] [place] [address] 02/18/2022 11:13:58 02/18/2022 11:43:10 Gynecologic examination 71796892 Z01.419 Screening for malignant neoplasm of cervix 689357077 Z12.4 Surveillan ce of contraception 384171037 Z30.40 Discussed all methods of control. Risks/bene fits of each discussed. She is interested in OCP use. Risks/side effects of Lo Loestrin discussed [id number] Lori Xavier, DO [facility] h [address] [place] [address] 06/25/2022 11:34:01 06/25/2022 12:12:32 Female stress incontinence 55225785 N39.3 JUSTINA - Discussed etiology and general treatment options including behavior modificati on, pelvic floor muscle strengthen ing, procedural options including slings, others - No significan t POP on exam, tissue appears well estrogeniz ed - Pt declined PFPT. Will work on kegel exercises Constipation 06477310 K5 9.00 Pt recently changed diet from [...] needed, or sooner if new symptoms develop. [id number] JILLIAN Roberto [facility] [address] [place] [address] 06/27/2023 10:48:31 06/27/2023 16:46:54 Gynecologic examination 08058737 Z01.411 Pt educated on ACOG and ASCCP guidelines for breast, ovarian, and cervical cancer screenings . Exam WNL. Plan for F/U PRN or for next WWE. Depression screening 171 263543 Z13.31 PHQ9: 9. Pt educated on abnormal scoring, and discussed recommenda tion for continued management with psych and PCP. Pt was recently taken off several medication s for mood and Rx'd Lamictal and Adderall. Pt educated on when to notify HCP/go to ER. Uterine prolapse 0714401 5 N81.4 Pt educated on exam findings c/w complaints of discomfort and needing to manually push back vaginal tissues to have a BM. Pt educated on stool softener use PRN, increasing p.o. water intake, and recommenda tion for referral to pelvic floor therapy. Plan to F/U in office if sx persistent and no relief with PT. Initial pr escription of oral contraception 512849739 Z30.011 Pt educated on all available progestero [...] Family his tory of cancer of colon 282487927 Z80.0 Pt educated on optional early colon cancer screenings 10 years sooner than family member's dx and MyRisk testing. Pt states understand ing and will consider. Pt to notify HCP if would like to proceed with GI referral or hereditary testing. [id number] Carlos Eduardo Lopez DO [facility] [address] [place] [address] 01/16/2024 14:15:34 01/17/2024 11:33:13 Constipation 43317871 K59.00 Additional diagnosis detail: Constipati on, unspecifie d constipati on typeStarte d her on Colace 100 mg to be taken as directed.R efill order sent for MiraLAX 17 grams to be taken as before.Adv ised to keep her stools softer with high fiber diet.Recom mended doing Kegel's exercises to strengthen her vaginal muscles. Family carlyn nning education 947364114 Z30.09 Refill provided for norethindr one 0.35 mg to be taken as directed. Health Concerns Section Related Observation LastModified by Organization Detai ls LastModified Time None Recorded Concern Status LastModified by Organization Details LastModified Time None Recorded Advance Directives Directive None Recorded Payers Insurance Date Sequence Insurance Name Policy Number Policy Mai Covered Member ID Mai Member ID Guarantor Name 01/16/2024 1 [facility] - DOS ON OR AFTER 21 (MEDICAID REPLACEMENT - HMO) Tamy Pink [id number] Tamy Pink Notes Date Note Type Note [...] depression; No anxiety; No PMDDVaginal/Vulvar ProblemReported bypatient.Location:vag abhinav Alleviating Factors:none Aggravating Factors:none Associated Symptoms:no vaginal itching; no vaginal irritation; no vaginal pain; no vulvar itching/irritation Tamy is here for her AEX. She is currently not using control. She stopped her contraceptive patch because of the allergy to the adhesive. She requests GC/CT with her pap. JILLIAN Crowder [address] [facility], [place], [address], [facility] Mister Bell IV 02/18/2022 11:45:05 06/25/2022 text/html Pt is lactose intolerant and recently stopped ingesting dairy. Her BMs have changed from diarrhea to more solid. She is having to vaginal splint to have bowel movement sometimes. Also has urinary incontinence with laugh, sneeze, coughing YANETH JIMENEZ DO [address] [facility], [place], [address], [facility] Mister Bell IV 06/25/2022 12:09:15 06/27/2023 text/html Annual GYNReport [...] has no personal or family history of CAFETERIA TABLE ATTENDANT cancer. Family history of colon cancer, maternal aunt. Pt. thinks it was in her late 40s. Pt declines STD screening via culture and serum testing. Pt has no other concerns. Follows with PCP and psych. JILLIAN Roberto [address] [facility], [place], [address], [facility] Mister Bell IV 06/27/2023 14:09:22 01/16/2024 text/html Pelvic ProlapseReported [...] for this encounter. Carlos Eduardo Lopez, DO [address] [facility], [place], [address], [facility] 01/16/2024 22:18:42 OBGyn Episode Ob Episode Information Episode Created Date Number of Fetuses Patient Bloodtype Patient rh Status Prepregnancy Weight lbs Domestic Partner Domestic Partner Phone Father Name Strap Cutting Machine Operator Status 10/23/19 22 1 CLOSED Fetus Data First Name Last Name Admitted to NICU Weight (g) Sex Living Outcome Pediatric Complications Fetus ID Race Codes Race Delivery Type 3572.03 7 M [id number] Alli Calculation Initial Alli Date Initial Exam [...]
--- OUTSIDE RECORDS SUMMARY | 2025-02-07 12:30 | XMS_ITS | Clinical Summary ---
Author Organization [facility] Address [address] [place] [address] Phone Care Team Providers Care Hogshead Dumper Name Role Phone Maria Fernanda De La [...] 01/09/2025 11:00 AM CDT Outpatient Clinic Visit [facility] [address] [place] [address] Gilson Garcia PSYD Unspecified neurodevelopmental [...] 02/20/2025 1:00 PM CDT [facility] [address] [place] [address] Gilson Garcia PSYD [place] Discharge Disposition: Discharged to home or Selfcare 02/28/2025 10:00 AM CDT Outpatient Clinic Visit [facility] [address] [place] [place] [address] Gilson Garcia PSYD [place] Discharge Disposition: Discharged to home or Selfcare 03/18/2025 1:00 PM CDT Outpatient Clinic Visit [facility] [address] [place] [address] Gilson Garcia PSYD [place] Discharge Disposition: Discharged [...] Insurance MEDICAID [employer] Care Teams Hogshead Dumper Relationship Specialty Start Date End Date Maria Fernanda De La Cruz APRN, INSPECTOR PROCESS [address] [place] [address] PCP - General Advanced Practice Nurse 10/25/24
--- OUTSIDE RECORDS SUMMARY | 2025-02-07 12:30 | XMS_ITS | Clinical Summary ---
Author Organization [facility] Address [facility] [place] [address] Care Team Providers Care Recording Clerk Name Role Phone Rosalina Gage NP Primary Care Provider Allergies No known active allergies Medications metoprolol tartrate 25 MG tablet Take 25 mg by mouth daily. 10/24/2019 Active Active Problems Problem Noted Date Diagnosed Date SVT (supraventricular tachycardia) ([facility]/HCC) Family History Medical History Relation Comments No [...] this topic Insurance [employer] Care Teams Recording Clerk Relationship Specialty Start Date End Date Rosalina Gage NP [address] [place] [address] PCP - General Nurse Practitioner Family 01/16/24
== END 2025-02-07 12:26 | disposition home or self-care (01) ==
LOC: CHSIMG 12:27
PROVIDERS: PCP Internal Medicine; Visit Provider Internal Medicine
DX: R74.8 Abnormal levels of other serum enzymes (principal); K76.0 Fatty (change of) liver, not elsewhere classified
CPT/HCPCS: 76705

== ENCOUNTER 2025-04-16 21:48 | Emergency (ER) | payer OTHER, SELFPAY ==
[2025-04-16 21:50] VITALS: BP 131/67; PULSE 123; RESP 17; TEMP 36.8; O2SAT 96
--- OUTSIDE RECORDS SUMMARY | 2025-04-16 21:50 | XMS_ITS | Clinical Summary ---
Author Organization [facility] Address [facility] [place] [address] Care Team Providers Care Poultry Raiser Name Role Phone Rosalina Gage NP Primary Care Provider Allergies No known active allergies Medications metoprolol tartrate 25 MG tablet Take 25 mg by mouth daily. 10/24/2019 Active Active Problems Problem Noted Date Diagnosed Date SVT (supraventricular tachycardia) ([facility]HCC) Family History Medical History Relation Comments No [...] 01/17/2001, 08/28/1997, Additional history exists COVID-19 Vaccine ( season) 2025 Hepatitis B Vaccines Completed 1996, 1996, 1996 [...] this topic Insurance [employer] Care Teams Poultry Raiser Relationship Specialty Start Date End Date Rosalina Gage NP [address] [place] [address] PCP - General Nurse Practitioner Family 01/16/24
--- OUTSIDE RECORDS SUMMARY | 2025-04-16 21:50 | XMS_ITS | Clinical Summary ---
Author Organization [facility] Address [address] [place] [address] Phone Care Team Providers Care Record Press Operator Name Role Phone Maria Fernanda De La Cruz APRN, CNP Primary Care Provider Medications risperiDONE (risperDAL) 0.5 MG Tablet Take 0.5 mg by mouth 2 times daily. Active lamoTRIgine (LaMICtal) 100 MG Tablet Take 100 mg by mouth daily. 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 01/09/2025 Encounters Date Type Department Care Team Description 03/18/2025 1:00 PM CDT Outpatient Clinic Visit [facility] [address] [place] [phone] Gilson Garcia PSYD Autism spectrum disorder, without accompanying intellectual or language impairment, requiring support (level 1) (Primary Dx); Major depressive disorder, single episode, moderate (HCC) Discharge Disposition: Discharged to home or Selfcare 03/18/2025 Travel 02/28/2025 10:00 AM CDT Telemedicine [facility] [address] [place] [address] Gilson Garcia PSYD Unspecified neurodevelopmental disorder, 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) Discharge Disposition: Discharged to home or Selfcare 02/28/2025 Travel 02/20/2025 1:00 PM CDT Outpatient Clinic Visit [facility] [address] [place] [address] Gilson Garcia PSYD Unspecified neurodevelopmental disorder, 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 Care Teams Record Press Operator Relationship Specialty Start Date End Date Maria Fernanda De La Cruz APRN, MANAGING PARTNER [address] [place] [address] PCP - General Advanced Practice Nurse 10/25/24
--- OUTSIDE RECORDS SUMMARY | 2025-04-16 21:50 | XMS_ITS | Clinical Summary ---
Author Organization [facility] Address [address] [place] [address] Care Team Providers Care Casting Assistant Name Role Phone Martnelda Marlena Wetzel APRN-VAULT CLERK Primary Care Provider Source Comments [facility],non-owned Affiliates and Associated Physician Practices is amultiple site organization consisting of ambulatory clinics and hospital sitesin [place], [place], [place] and [place]. This disclosure is being madepursuant to the Care Everywhere program and may not contain all information available regarding this patient. Last updated 18.[facility] Allergies No known active allergies Medications * [...] Reasons: Manic-Depression 30 tablet 09/12/2024 2:56 PM URBAN ANTHROPOLOGIST 5 Active QUEtiapine (SEROquel) 100 MG tabletIndicatio ns:Depressive Phase Bipolar Mood Disorder,Genera lized Anxiety Disorder,Insomn ia Take 1 (one) tablet by mouth at bedtime Reasons: Depressive Phase of Manic-Depression , Generalized Anxiety Disorder, Trouble Sleeping 30 tablet 09/12/2024 2:56 PM URBAN ANTHROPOLOGIST 5 Active metoprolol succinate XL 24hr (Toprol XL) 25 MG tabletIndicatio ns:Hypertension Take 1 (one) tablet by mouth once daily Reasons: High Blood Pressure 30 tablet 09/12/2024 2:56 PM URBAN ANTHROPOLOGIST 5 Active Active Problems Problem Noted Date Diagnosed Date Bipolar disorder, current ep isode depressed, severe, without psychotic features 09/08/2024 Family History Medical History Relation Name Comments NM<65(female) Maternal Aunt Diabetes - Type 2 Other [...] Recorded Patient Health Questionnaire-2 Score 6 09/08/2024 [facility] of Occupat ional Health - Occupational Stress [...] any time in the past 12 m [facility], were you homeless or living in a [facility] (including now)? No 09/08/2024 Comments Unknown Sex and Gender Information Value Date Recorded Sex Assigned at Not on file Legal Sex Female 5:42 AM URBAN ANTHROPOLOGIST Gender Identity Not on file Sexual Orientation Not on file Last Filed Vital Signs Vital Sign Reading Time Taken Comments Blood Pressure 116/74 09/12/2024 8:03 AM URBAN ANTHROPOLOGIST Pulse 81 09/12/2024 8:03 AM URBAN ANTHROPOLOGIST Temperature 36.8 C (98.2 F) 09/12/2024 8:03 AM URBAN ANTHROPOLOGIST Respiratory Rate 16 09/12/2024 8:03 AM URBAN ANTHROPOLOGIST Oxygen Saturation 100% 09/12/2024 8:03 AM URBAN ANTHROPOLOGIST Inhaled Oxygen Concentration - - Weight 93.6 kg (206 lb 6.4 oz) 09/08/2024 4:33 A M URBAN ANTHROPOLOGIST Height 157.5 cm (5' 2) 09/08/2024 4:33 AM URBAN ANTHROPOLOGIST Body Mass Index 37.75 09/08/2024 4:33 AM URBAN ANTHROPOLOGIST Plan of Treatment Health Maintenance Due Date Last Done Comments HIV SCREENING 2011 HEPATITIS C SCREENING 04/29/2014 DTAP/TDAP/TD VACCINES (1 - Tdap) 2015 HEPATITIS B VACCINE (1 of 3 - 19+ 3-dose series) 2015 PAP SMEAR 2017 HPV VACCINE (1 - 3-dose SCDM series) 2023 COVID-19 VACCINE (1 - 2023-2 5 season) 2025 INFLUENZA VACCINE (#1) 2025 ZOSTER VACCINE (1 of 2) 2046 [...] patient's age to complete this topic Insurance [facility] [place] [facility] [place] [facility] [place] Advance Directives * Full Code (Latest Code Status on File) Date Activated Date Inactivated Comments 09/08/2024 4:31 AM 09/12/2024 7:17 PM Care Teams Casting Assistant Relationship Specialty Start Date End Date Marlena Lyn, INFORMATION ASSURANCE SPECIALIST-VAULT CLERK PCP - General 03/30/19
--- NOTE | 2025-04-16 22:01 | ED_ITS ---
HPI - General Adult General Chief complaint: Skin/Abscess/Foreign Body Stated complaint: liam pain with lump Time Seen by Provider: 04/16/25 21:56 Source: patient Mode of arrival: ambulatory Limitations: no limitations History of Present Illness HPI narrative: 29-year-old with a history of SVT status post ablation, here with a complaint of left groin pain for past 1 and half week. Patient denies any trauma or lifting any home takes. Patient states that pain is constant in nature worse with ambulation. r moving in certain direction .She denes any low back pain .No H/O of fever or chills.no urinary symptoms Onset (ago): week(s) (15) Location: lower extremity (left groin) Radiation: extremity Severity: moderate Quality: aching Pain Consistency: constant Relieving factors: none Exacerbating factors: movement Associated symptoms: denies other symptoms Related Data Home Medications ?Medication ?Instructions ?Recorded ?Confirmed ?Last Taken ?Type lamotrigine 100 mg tablet 100 mg PO DAILY 01/14/2403/31 Unknown History methylphenidate HCl 27 mg 27 mg PO DAILY 01/14/2403/31 Unknown History tablet,extended release 24 hr (Concerta) metoprolol tartrate 50 mg tablet 50 mg PO DAILY 01/14/24 Unknown History Allergies Allergy/AdvReac Type Severity Reaction Status Date / Time amoxicillin Allergy Unknown Verified 08/09/24 11:16 Review of Systems Review of Systems: All systems reviewed & are unremarkable except as noted in HPI and below Constitutional: Constitutional: Reports no additional constitutional complaints Eyes: Eyes: Reports no additional eye complaints ENT: Reports system reviewed and no additional complaints, except as docu mented Cardiovascular: Cardiovascular: Reports no additional cardiovascular complaints Respiratory: Respiratory: Reports no additional respiratory complaints Gastrointestinal: Gastrointestinal: Reports no additional gastrointestinal complaints Musculoskeletal: Musculoskeletal: Reports as per HPI Neurologic: Reports system reviewed and no additional complaints, except as documented Psychiatric: Psychiatric: Reports no additional psychiatric complaints [facility] Past Medical History Medical History Tobacco use Obesity Bilateral lower abdominal pain Chronic diarrhea Hematochezia Metatarsal bone fracture Ear infection SVT (supraventricular tachycardia) Surgical History Surgical History History of tympanostomy History of hand surgery LT History of dental surgery H/O cardiac radiofrequency ablation Hx of tonsillectomy Family History Family History Father Alive and well Father Alive and well Social History Social History Smoking status: Current every day smoker Tobacco type: e-cigarettes/vaping Second hand tobacco smoke exposure: Yes Smoking end date: 08/08/18 Alcohol intake: never Alcohol use details: stop due to Substance use: never Substance use type: does not use Living arrangements: with family Occupation/Education: unemployed Gender identity (if verbalized by the patient): Female Sexual Orientation (if Verbalized by the Patient): Straight or Heterosexual Spiritual care concerns: No Exam Narrative: GENERAL: Well-appearing, well-nourished, and in no acute distress. HEAD: Normocephalic, atraumatic. EYES: PERRLA and EOMI. ENT: Nares clear, Mucous membranes moist. NECK: Supple. CHEST: Clear to auscultation. No respiratory distress. HEART: Regular rate and rhythm. No murmur heard. Normal peripheral pulses. ABDOMEN: Soft, nontender, EXTREMITIES: Normal range of motion. No edema. Examination of the left groin shows no evidence of any herniation she is tender in the inguinal area, no rash no swelling noted SKIN: Warm, dry, no rash. NEURO: No focal deficits. Alert and oriented x3. PSYCH: Normal mood and affect. Course Course Emergency Course: informed patient about the possible diagnosis inguinal strain advised her to take anti-inflammatory medication as prescribed, consider physical therapy follow-up with the primary doctor. Vital Signs Vital signs: Vital Signs Temperature 36.8 C 04/16/25 21:50 Pulse Rate 123 H 04/16/25 21:50 Respiratory Rate 17 04/16/25 21:50 Blood Pressure 131/67 04/16/25 21:50 Pulse Oximetry 96 04/16/25 21:50 Oxygen Delivery Room Air 04/16/25 21:50 Temperature 36.8 C 04/16/25 21:50 Pulse Rate 123 H 04/16/25 21:50 Respiratory Rate 17 04/16/25 21:50 Blood Pressure 131/67 04/16/25 21:50 Pulse Oximetry 96 04/16/25 21:50 Oxygen Delivery Room Air 04/16/25 21:50 Medical Decision Making Vital Signs Vital Signs: Vital Signs Temperature 36.8 C 04/16/25 21:50 Pulse Rate 123 H 04/16/25 21:50 Respiratory Rate 17 04/16/25 21:50 Blood Pressure 131/67 04/16/25 21:50 Pulse Oximetry 96 04/16/25 21:50 Oxygen Delivery Room Air 04/16/25 21:50 Temperature 36.8 C 04/16/25 21:50 Pulse Rate 123 H 04/16/25 21:50 Respiratory Rate 17 04/16/25 21:50 Blood Pressure 131/67 04/16/25 21:50 Pulse Oximetry 96 04/16/25 21:50 Oxygen Delivery Room Air 04/16/25 21:50 Discharge Plan Discharge Clinical Impression: Strain of left groin Patient Disposition: Home Condition: Stable Instructions: Groin Strain (ED) Patient Language: [place] Islander Prescriptions: New naproxen 500 mg tablet 500 mg PO BID PRN (Reason: pain) Qty: 14 0RF No Action metoprolol tartrate 50 mg tablet 50 mg PO DAILY lamotrigine 100 mg tablet 100 mg PO DAILY methylphenidate HCl [Concerta] 27 mg tablet extended release 24hr 27 mg PO DAILY azithromycin 250 mg tablet See Rx Instructions .ROUTE .COMPLEX Qty: 6 0RF Rx Instructions: For 250 mg dose pack: take 500 mg today (day 1), then 250 mg for 4 days (days 2-5) (DME) Aerochamber Plus Z Stat Spacer See Rx Instructions .Route Qty: 1 0RF Rx Instructions: As directed Follow-up/Referrals: UNKNOWN,DOCTOR [Primary Care Provider] Time of Disposition: 22:08
== END 2025-04-16 22:33 | disposition home or self-care (01) ==
LOC: CHSED 22:11
PROVIDERS: Emergency Provider Family Medicine; PCP Internal Medicine
DX: S39.011A Strain of muscle, fascia and tendon of abdomen, initial encounter (principal); F17.290 Nicotine dependence, other tobacco product, uncomplicated; X58.XXXA Exposure to other specified factors, initial encounter
CPT/HCPCS: 99283

== ENCOUNTER 2025-04-27 09:01 | Emergency (ER) | payer OTHER, SELFPAY ==
--- NOTE | ~2025-04-27 | XR_ITS ---
Examination: XR chest 1V portable Clinical History: edema x2 weeks; worsening Comparison: X-rays August 09, 2024 Technique: Portable AP Findings: Heart size normal. Lungs clear. No acute bony abnormality. IMPRESSION: 1. No acute cardiopulmonary findings given portable technique. Reviewed, dictated and finalized at location R.
--- OUTSIDE RECORDS SUMMARY | 2025-04-27 09:03 | XMS_ITS | Clinical Summary ---
Author Organization [facility] Address [address] [place] [address] Care Team Providers Care Energy Scheduler Name Role Phone Jean-Claude Anand MD Primary Care Provider [phone] Allergies No known active allergies Medications metoprolol tartrate 25 MG tablet Take 25 mg by mouth daily. 10/24/2019 Active baclofen (LIORESAL) 10 MG tablet Take 1 tablet (10 mg total) by mouth 3 (three) times daily. 15 tablet 04/21/2025 Active methylPREDNISol one, ARLET, (MEDROL DOSEPAK) 4 MG tablet Use per packet instructions . Can take 6 TABLETS ON DAY ONE, 5 TABLETS DAY TWO, 4 TABLETS DAY THREE, 3 TABLETS DAY FOUR, 2 TABLETS DAY FIVE, AND 1 TABLET DAY SIX 1 each 04/22/2025 Active Active Problems Problem Noted Date Diagnosed Date SVT (supraventricular tachycardia) ([facility]/HCC) Encounters Date Type Department Care Team Description 04/21/2025 1:39 PM CDT - 04/21/2025 4:26 PM CDT Emergency [facility] [place] [address] Ellyn Hung PA Leg Swelling Discharge Disposition: Left Against Medical Advice 04/21/2025 Travel from Last 3 Months Family History Medical History Relation Comments No [...] Information Value Date Recorded Sex Assigned at Female 04/21/2025 12:47 PM CDT Legal Sex Female 7:28 PM CDT Gender Identity Not on file Sexual Orientation Not on file Last Filed Vital Signs Vital Sign Reading Time Taken Comments Blood Pressure 126/86 04/21/2025 4:20 PM CDT Pulse 88 04/21/2025 4:20 PM CDT Temperature 37.3 C (99.2 F) 04/21/2025 12:39 PM CDT Respiratory Rate 18 04/21/2025 4:20 PM CDT Oxygen Saturation 99% 04/21/2025 4:20 PM CDT Inhaled Oxygen Concentration - - Weight 102.7 kg (226 lb 6.6 oz) 025 12:49 PM CDT Height 157.5 cm (5' 2) 04/21/2025 12:3 9 PM CDT Body Mass Index 41.41 04/21/2025 12:39 PM CDT Plan of Treatment Health Maintenance [...] on patient's age to complete this topic Procedures Procedure Name Priority Date/Time Associated Diagnosis Comments ECG 12-LEAD STAT 04/21/2025 2:09 PM CDT POCT URINE (BACK OFFICE) STAT 04/21/2025 2:02 PM CDT TROPONIN, QUANT STAT 04/21/2025 2:01 PM CDT D-DIMER, QUANTITATIVE STAT 04/21/2025 2:01 PM CDT BASIC METABOLIC PANEL STAT 04/21/2025 2:01 PM CDT CBC W/DIFF AUTOMATED STAT 04/21/2025 2:01 PM CDT XR LUMB SPINE 3V STAT 04/21/2025 1:48 PM CDT XR CHEST PORTABLE STAT 04/21/2025 1:4 8 PM CDT from Last 3 Months Results * ECG 12 lead (04/21/2025 2:09 PM CDT) 04/21/2025 2:09 PM CDT Narrative [facility] ([facility]) RAD - 04/21/2025 5:56 PM CDT [place] [address] Test Date: 2025-04-21 Pat Name: RONNY PINK Department: 41 Room: [facility] Gender: Female Rotary Swaging Machine Operator: MARY : 1995 Requested By: ELLYN HUNG Order Number: [id number] Reading MD: Uriah Rome Measurements Intervals [place] Rate: 81 P: 37 CT: 153 QRS: 18 QRSD: 86 T: 26 QT: 357 QTc: 415 Interpretive Statements SINUS RHYTHM WITH SINUS ARRHYTHMIA Compared to ECG 01/16/2024 14:49:43 No significant changes . Procedure Note Uriah Rome MD - 04/21/[address] Test Date: 2025-04-21 Pat Name: RONNY PINK Department: 41 Room: [facility] Gender: Female Rotary Swaging Machine Operator: MARY : 1995 Requested By: ELLYN HUNG Order Number: [id number] Reading MD: Uriah Rome Measurements Intervals [place] Rate: 81 P: 37 CT: 153 QRS: 18 QRSD: 86 T: 26 QT: 357 QTc: 415 Interpretive Statements SINUS RHYTHM WITH SINUS ARRHYTHMIA Compared to ECG 01/16/2024 14:49:43 No significant changes . [facility] ECG ORDERABLES Final Result [facility] ([facility]) RAD * POCT urine (04/21/2025 2:02 PM CDT) URINE HCG TEST NEGATIVE Internal Control: VALID 04/21/2025 2:02 PM CDT [facility] POINT OF CARE TEST ORDERABLES Final Result * (ABNORMAL) BASIC METABOLIC PANEL (04/21/2025 2:01 PM CDT) GLUCOSE 92 70 - 99 MG/DL 04/21/2025 2:30 PM CDT [facility] BUN 6(L) 7 - 18 MG/DL 04/21/2025 2:30 PM CDT [facility] CREATININE S/P/B 0.76 0.55 - 1.02 MG/DL 04/21/2025 2:30 PM CDT [facility] SODIUM S/P/B 138 136 - 145 MMOL/L 04/21/2025 2:30 PM CDT [facility] POTASSIUM S/P/B 4.1 3.5 - 5.1 MMOL/L 04/21/2025 2:30 PM CDT [facility] CHLORIDE S/P/B 108 97 - 115 MMOL/L 04/21/2025 2:30 PM CDT [facility] CO2 26.5 21 - 32 MMOL/L 04/21/2025 2:30 PM CDT [facility] CALCIUM S/P/B 9.5 8.5 - 10.1 MG/DL 04/21/2025 2:30 PM CDT [facility] ANION GAP 3.5 2 - 10 MMOL/L 04/21/2025 2:30 PM CDT [facility] BUN CREATININE RATIO 7.9 6 - 26 04/21/2025 2:30 PM CDT [facility] GFR ESTIMATE >90 >90 ML/MIN/1.7 3 M2 04/21/2025 2:30 PM CDT [facility] Comment: NOTE: eGFR is not calculated for patients <18 years of age or gender unknown. This is an estimated GFR calculation using the new CKD EPI creatinine equation without race and so does not require a correction factor for race. This estimated GFR should not be used for calculating drug doses. 04/21/2025 2:01 PM CDT [facility] Final Result [facility] [address] [place] [address], * D-DIMER, QUANTITATIVE (04/21/2025 2:01 PM CDT) D-DIMER <215 0 - 500 ng{FEU}/mL 04/21/2025 2:46 PM CDT [facility] Comment: D-Dimer values less than or equal to 500 ng/mL FEU have a negative predictive value of >95% for exclusion of deep vein thrombosis and pulmonary embolism. In patients over 50 (who tend to have higher normal baseline D-Dimer values), recent studies suggest age-adjusted D-Dimer cutoff values (calculated as: age [years] x 10 ng/mL) result in equivalent outcomes and no additional false negative findings. 04/21/2025 2:01 PM CDT [facility] Final Result [facility] [address] [place] [address], * (ABNORMAL) CBC W/DIFF AUTOMATED (04/21/2025 2:01 PM CDT) WBC 11.59(H) 4.5 - 11.0 x10'3/uL 04/21/2025 2:21 PM CDT [facility] RBC 4.65 4.20 - 5.40 x10'6/uL 04/21/2025 2:21 PM CDT [facility] HGB 14.2 12.0 - 16.0 G/DL 04/21/2025 2:21 PM CDT [facility] HCT 41.9 38.0 - 48.0 % 04/21/2025 2:21 PM CDT [facility] MCV 90.1 81.0 - 99.0 FL 04/21/2025 2:21 PM CDT [facility] MCH 30.5 27.0 - 31.0 PG 04/21/2025 2:21 PM CDT [facility] MCHC 33.9 32.0 - 36.0 G/DL 04/21/2025 2:21 PM CDT [facility] RDW 12.1 11.5 - 14.5 % 04/21/2025 2:21 PM CDT [facility] PLT 383 130 - 400 x10'3/uL 04/21/2025 2:21 PM CDT [facility] MPV 9.7 9.3 - 12.2 FL 04/21/2025 2:21 PM CDT [facility] DIFFERENTIAL TYPE AUTOMATED DIFFERENTIAL 04/21/2025 2:21 PM CDT [facility] NEUTROPHILS % 66.6 % 04/21/2025 2:21 PM CDT [facility] LYMPHOCYTES % 24.8 % 04/21/2025 2:21 PM CDT [facility] MONOCYTES % 6.7 % 04/21/2025 2:21 PM CDT [facility] EOSINOPHILS 1.1 % 04/21/2025 2:21 PM CDT [facility] BASOPHILS 0.5 % 04/21/2025 2:21 PM CDT [facility] IMMATURE GRANS % 0.3 % 04/21/20 2:21 PM CDT [facility] ABS. NEUTROPHILS 7.71(H) 1.80 - 7.70 x10'3/uL 04/21/2025 2:21 PM CDT [facility] ABS. LYMPHOCYTES 2.87 1.00 - 4.80 x10'3/uL 04/21/2025 2:21 PM CDT [facility] ABS. MONOCYTES 0.78 0.24 - 0.86 x10'3/uL 04/21/2025 2:21 PM CDT [facility] ABS. EOSINOPHILS 0.13 0.04 - 0.36 x10'3/uL 04/21/2025 2:21 PM CDT [facility] ABS. BASOPHILS 0.06 0.01 - 0.08 x10'3/uL 04/21/2025 2:21 PM CDT [facility] ABS. IMMATURE GRANULOCYTES 0.04 0.00 - 0.49 x10'3/uL 04/21/2025 2:21 PM CDT [facility] 04/21/2025 2:01 PM CDT [facility] Final Result Performing Organization Address City/[facility]/ZIP Co de Phone Number [facility] [address] [place] [address], [place] [phone] * TROPONIN, QUANT (04/21/2025 2:01 PM CDT) TROPONIN I HIGH SENSITIVITY 6 <54 ng/L 04/21/2025 2:34 PM CDT [facility] Comment: HIGH DOSES OF BIOTIN, TROPONIN-SPECIFIC AUTOANTIBODIES, AND ANTIBODY THERAPY CONTAINING HAMA MAY INTERFERE WITH THIS TEST RESULT. CORRELATION TO CLINICAL HISTORY AND PRESENTATION RECOMMENDED. 04/21/2025 2:01 PM CDT [facility] Final Result Performing Organization Address [facility] Co de Phone Number [facility] [address] [place] [address], [place] [phone] * XR LUMB SPINE 3V (04/21/2025 1:48 PM CDT) Anatomical Region Laterality Modality Spine Radiographic Dedra ging 04/21/2025 2:02 PM CDT Impressions 04/21/2025 2:02 PM CDT IMPRESSION: Multilevel degenerative disc disease, worse at L4-5. Referred By: Interpreted By: Kelton Ramos MD, 04/21/2025 2:02 PM Narrative 04/21/2025 2:[address] [address] Examination: XR LUMB SPINE 3V Exam time: 04/21/2025 1:32 PM Indication: Left leg pain Comparison: None Findings: 3 views of the lumbar spine were obtained. No significant anterolisthesis or retrolisthesis. The pedicles are symmetric. There is moderate degenerative disc disease L4-5. There is mild degenerative disc disease at the remaining levels. No fracture. Procedure Note Kelton Ramos MD - 04/21/[address] [address] Examination: XR LUMB SPINE 3V Exam time: 04/21/2025 1:32 PM Indication: Left leg pain Comparison: None Findings: 3 views of the lumbar spine were obtained. No significantanterolisthesis or retrolisthesis. The pedicles are symmetric. There ismoderate degenerative disc disease L4-5. There is mild degenerative discdisease at the remaining levels. No fracture. IMPRESSION: Multilevel degenerative disc disease, worse at L4-5. Referred By: Interpreted By: Kelton Ramos MD, 04/21/2025 2:02 PM us [facility] Final Result * XR CHEST PORTABLE (04/21/2025 1:48 PM CDT) Anatomical Region Laterality Modality Chest Radiographic Dedra ging 04/21/2025 2:02 PM CDT Impressions 04/21/2025 2:03 PM CDT IMPRESSION: No acute pulmonary findings. Referred By: Interpreted By: Kelton Ramos MD, 04/21/2025 2:02 PM Narrative 04/21/2025 2:[address] [address] Examination: XR CHEST PORTABLE Exam time: 04/21/2025 1:32 PM Indication: Left leg pain and swelling Comparison: Chest 01/16/2024 Findings: Upright PA view of the chest was obtained. The heart size is normal. No vascular congestion. No airspace consolidation, pleural effusion, or pneumothorax. Procedure Note Kelton Ramos MD - 04/21/[address] [address] Examination: XR CHEST PORTABLE Exam time: 04/21/2025 1:32 PM Indication: Left leg pain and swelling Comparison: Chest 01/16/2024 Findings: Upright PA view of the chest was obtained. The heart size isnormal. No vascular congestion. No airspace consolidation, pleuraleffusion, or pneumothorax. IMPRESSION: No acute pulmonary findings. Referred By: Interpreted By: Kelton Ramos MD, 04/21/2025 2:02 PM [facility] Final Result from Last 3 Months Insurance TOPEKA TOP[employer]KA Care Teams Energy Scheduler Relationship Specialty Start Date End Date Jean-Claude Anand MD [address] [address] PCP - General INTERNAL MEDICINE 04/21/25
--- OUTSIDE RECORDS SUMMARY | 2025-04-27 09:03 | XMS_ITS | Clinical Summary ---
Author Organization [facility] [employer] Address [address] [place] [address] Care Team Providers Care Smeller Name Role Phone Martnelda Marlena Wetzel APRN-ROLLER MAKER Primary Care Provider Source Comments [facility] [employer],non-owned Affiliates and Associated Physician Practices is amultiple site organization consisting of ambulatory clinics and hospital sitesin [place], [place], [place] and [place]. This disclosure is being madepursuant to the Care Everywhere program and may not contain all information available regarding this patient. Last updated 18.[facility] [employer] Allergies No known active allergies Medications * [...] Reasons: Manic-Depression 30 tablet 09/12/2024 2:56 PM TWISTER FRAME TENDER 5 Active QUEtiapine (SEROquel) 100 MG tabletIndicatio ns:Depressive Phase Bipolar Mood Disorder,Genera lized Anxiety Disorder,Insomn ia Take 1 (one) tablet by mouth at bedtime Reasons: Depressive Phase of Manic-Depression , Generalized Anxiety Disorder, Trouble Sleeping 30 tablet 09/12/2024 2:56 PM TWISTER FRAME TENDER 5 Active metoprolol succinate XL 24hr (Toprol XL) 25 MG tabletIndicatio ns:Hypertension Take 1 (one) tablet by mouth once daily Reasons: High Blood Pressure 30 tablet 09/12/2024 2:56 PM TWISTER FRAME TENDER 5 Active Active Problems Problem Noted Date Diagnosed Date Bipolar disorder, current ep isode depressed, severe, without psychotic features 09/08/2024 Family History Medical History Relation Name Comments [place]<65(female) Maternal Aunt Diabetes - Type 2 Other [...] Recorded Patient Health Questionnaire-2 Score 6 09/08/2024 [facility] [place] of Occupat ional Health - Occupational Stress [...] any time in the past 12 m [facility], were you homeless or living in a residential (including now)? No 09/08/2024 Comments Unknown Sex and Gender Information Value Date Recorded Sex Assigned at Not on file Legal Sex Female 5:42 AM TWISTER FRAME TENDER Gender Identity Not on file Sexual Orientation Not on file Last Filed Vital Signs Vital Sign Reading Time Taken Comments Blood Pressure 116/74 09/12/2024 8:03 AM TWISTER FRAME TENDER Pulse 81 09/12/2024 8:03 AM TWISTER FRAME TENDER Temperature 36.8 C (98.2 F) 09/12/2024 8:03 AM TWISTER FRAME TENDER Respiratory Rate 16 09/12/2024 8:03 AM TWISTER FRAME TENDER Oxygen Saturation 100% 09/12/2024 8:03 AM TWISTER FRAME TENDER Inhaled Oxygen Concentration - - Weight 93.6 kg (206 lb 6.4 oz) 09/08/2024 4:33 A M TWISTER FRAME TENDER Height 157.5 cm (5' 2) 09/08/2024 4:33 AM TWISTER FRAME TENDER Body Mass Index 37.75 09/08/2024 4:33 AM TWISTER FRAME TENDER Plan of Treatment Health Maintenance Due Date [...] patient's age to complete this topic Insurance [facility] Advance Directives * Full Code (Latest Code Status on File) Date Activated Date Inactivated Comments 09/08/2024 4:31 AM 09/12/2024 7:17 PM Care Teams Smeller Relationship Specialty Start Date End Date Marlena Lyn, VACUUM CLEANER ASSEMBLER-ROLLER MAKER PCP - General 03/30/19
[2025-04-27 09:05] VITALS: BP 108/76; PULSE 103; RESP 20; TEMP 36.4; O2SAT 95
--- NOTE | 2025-04-27 09:25 | ECG_ITS ---
Test Date: 2025-04-27 09:34:05 Measurements Intervals [place] Rate: 87 P: 44 NE: 139 QRS: 20 QRSD: 81 T: 39 QT: 331 QTc: 400 Interpretive Statements SINUS RHYTHM NORMAL ELECTROCARDIOGRAM Compared to ECG 01/14/2024 15:19:11 NO SIGNIFICANT CHANGE Electronically Signed On 04-28-2025 08:33:43 CDT by Carlos Eduardo Henson M.D.
[2025-04-27 09:47] LABS: Hematocrit 38.4 % (35.0-49.0); Hemoglobin 12.6 g/dL (12.0-15.0); Immature Granulocyte Percent A 0.9 % (0.0-0.0); Lymphocytes Absolute Auto 2.71 K/mm3 (1.10-4.50); Mean Corpuscular HGB Conc 32.8 g/dL (32-36); Mean Corpuscular Hemoglobin 30.1 pg (27.0-31.0); Mean Corpuscular Volume 91.9 fL (78.0-102.0); Nucleated Red Blood Cells Absolute Auto 0.00 K/mm3 (0.00-0.00); Nucleated Red Blood Cells Perc 0.0 % (0-0.0); Platelet Count Result 296 K/mm3 (150-420); Red Blood Count 4.18 M/mm3 (4.20-5.40); White Blood Count 11.7 K/mm3 (4.8-10.8)
[2025-04-27 09:48] LABS: Add Urine Microscopic? YES; Appearance Urine Clear (Clear); Glucose Urine UA Negative (Negative); Leukocyte Esterase Ur 1+ LEU/UL (Negative); Nitrate Urine Negative (Negative); Specific Grav Ur 1.015 (1.010-1.020)
[2025-04-27 09:51] LABS: Pregnancy On Board Control Positive
--- OUTSIDE RECORDS SUMMARY | 2025-04-27 09:52 | XMS_ITS | Clinical Summary ---
Author Organization [facility] [employer] Address [address] [place] [address] Care Team Providers Care Beauty Advisor Name Role Phone Martnelda Marlena Wetzel APRN-BUSINESS CONSULTANT Primary Care Provider Source Comments [facility] [employer]non-owned Affiliates and Associated Physician Practices is amultiple site organization consisting of ambulatory clinics and hospital sitesin [place], [place], [place] and [place]. This disclosure is being madepursuant to the Care Everywhere program and may not contain all information available regarding this patient. Last updated 18.[facility] [employer] Allergies No known active allergies Medications * [...] Reasons: Manic-Depression 30 tablet 09/12/2024 2:56 PM CABLE SWAGER 5 Active QUEtiapine (SEROquel) 100 MG tabletIndicatio ns:Depressive Phase Bipolar Mood Disorder,Genera lized Anxiety Disorder,Insomn ia Take 1 (one) tablet by mouth at bedtime Reasons: Depressive Phase of Manic-Depression , Generalized Anxiety Disorder, Trouble Sleeping 30 tablet 09/12/2024 2:56 PM CABLE SWAGER 5 Active metoprolol succinate XL 24hr (Toprol XL) 25 MG tabletIndicatio ns:Hypertension Take 1 (one) tablet by mouth once daily Reasons: High Blood Pressure 30 tablet 09/12/2024 2:56 PM CABLE SWAGER 5 Active Active Problems Problem Noted Date Diagnosed Date Bipolar disorder, current ep isode depressed, severe, without psychotic features 09/08/2024 Family History Medical History Relation Name Comments [place]<65(female) Maternal Aunt Diabetes - Type 2 Other [...] Recorded Patient Health Questionnaire-2 Score 6 09/08/2024 [facility] [place] of Occupat ional Health - Occupational Stress [...] in the past 12 m [facility], were you homeless or living in a skilled nursing (including now)? No 09/08/2024 Comments Unknown Sex and Gender Information Value Date Recorded Sex Assigned at Not on file Legal Sex Female 5:42 AM CABLE SWAGER Gender Identity Not on file Sexual Orientation Not on file Last Filed Vital Signs Vital Sign Reading Time Taken Comments Blood Pressure 116/74 09/12/2024 8:03 AM CABLE SWAGER Pulse 81 09/12/2024 8:03 AM CABLE SWAGER Temperature 36.8 C (98.2 F) 09/12/2024 8:03 AM CABLE SWAGER Respiratory Rate 16 09/12/2024 8:03 AM CABLE SWAGER Oxygen Saturation 100% 09/12/2024 8:03 AM CABLE SWAGER Inhaled Oxygen Concentration - - Weight 93.6 kg (206 lb 6.4 oz) 09/08/2024 4:33 A M CABLE SWAGER Height 157.5 cm (5' 2) 09/08/2024 4:33 AM CABLE SWAGER Body Mass Index 37.75 09/08/2024 4:33 AM CABLE SWAGER Plan of Treatment Health Maintenance Due Date [...] patient's age to complete this topic Insurance [facility] Advance Directives * Full Code (Latest Code Status on File) Date Activated Date Inactivated Comments 09/08/2024 4:31 AM 09/12/2024 7:17 PM Care Teams Beauty Advisor Relationship Specialty Start Date End Date Marlena Lyn, INTRANET SUPPORT-BUSINESS CONSULTANT PCP - General 03/30/19
--- OUTSIDE RECORDS SUMMARY | 2025-04-27 09:52 | XMS_ITS | Clinical Summary ---
Author Organization [facility] Address [address] [place] [address] Care Team Providers Care Enterprise Sales Person Name Role Phone Jean-Claude Anand MD Primary Care Provider [phone] Allergies No known active allergies Medications metoprolol [...] Noted Date Diagnosed Date SVT (supraventricular tachycardia) ([facility]/H[facility]) Encounters Date Type Department Care Team Description 04/21/2025 1:39 PM CDT - 04/21/2025 4:26 PM CDT Emergency [facility] [place] [address] Ellyn Hung PA Leg Swelling Discharge Disposition: [...] PM CDT) 04/21/2025 2:09 PM CDT Narrative [facility] - 04/21/2025 5:56 PM CDT [place] [address] Test Date: 2025-04-21 Pat Name: RONNY PINK Department: 41 Room: [id number] Gender: Female Nuisance Wildlife Trapper: MARY : 1995 Requested By: ELLYN HUNG Order Number: [id number] Reading MD: Uriah Rome Measurements Intervals [place] Rate: 81 P: 37 ID: [id number] QRS: 18 QRSD: 86 T: 26 QT: 357 QTc: 415 Interpretive Statements SINUS RHYTHM WITH SINUS ARRHYTHMIA Compared to ECG 01/16/2024 14:49:43 No significant changes . Procedure Note Uriah Rome MD - 04/21/[address] Test Date: 2025-04-21 Pat Name: RONNY PINK Department: 41 Room: [facility] Gender: Female Nuisance Wildlife Trapper: MARY : 1995 Requested By: ELLYN HUNG Order Number: [id number] Reading MD: Uriah Rome Measurements Intervals [place] Rate: 81 P: 37 ID: [id number] QRS: 18 QRSD: 86 T: 26 QT: 357 QTc: 415 Interpretive Statements SINUS RHYTHM WITH SINUS ARRHYTHMIA Compared to ECG 01/16/2024 14:49:43 No significant changes . Ellyn [facility] ECG ORDERABLES Final Result [facility] * POCT urine (04/21/2025 2:02 PM CDT) URINE HCG TEST NEGATIVE Internal Control: VALID 04/21/2025 2:02 PM CDT Ellyn MELVIN POINT OF CARE TEST ORDERABLES Final Result * (ABNORMAL) BASIC METABOLIC PANEL (04/21/2025 2:01 PM CDT) GLUCOSE 92 70 - 99 MG/DL 04/21/2025 2:[address] [facility] BUN 6(L) 7 - 18 MG/DL 04/21/2025 2:[address] [facility] CREATININE S/P/B 0.76 0.55 - 1.02 MG/DL 04/21/2025 2:[address] [facility] SODIUM S/P/B 138 136 - 145 MMOL/L 04/21/2025 2:[address] [facility] POTASSIUM S/P/B 4.1 3.5 - 5.1 MMOL/L 04/21/2025 2:[address] [facility] CHLORIDE S/P/B 108 97 - 115 MMOL/L 04/21/2025 2:[address] [facility] CO2 26.5 21 - 32 MMOL/L 04/21/2025 2:[address] [facility] CALCIUM S/P/B 9.5 8.5 - 10.1 MG/DL 04/21/2025 2:[address] [facility] ANION GAP 3.5 2 - 10 MMOL/L 04/21/2025 2:[address] [facility] BUN CREATININE RATIO 7.9 6 - 26 04/21/2025 2:[address] [facility] GFR ESTIMATE >90 >90 ML/MIN/1.7 3 M2 04/21/2025 2:[address] [facility] Comment: NOTE: eGFR is not calculated for patients <18 years of age or gender unknown. This is an estimated GFR calculation using the new CKD EPI creatinine equation without race and so does not require a correction factor for race. This estimated GFR should not be used for calculating drug doses. 04/21/2025 2:01 PM CDT Ellyn [facility] LABORATORY Final Result [facility] [address] [place] [address], * D-DIMER, QUANTITATIVE (04/21/2025 2:01 PM CDT) [...] PM CDT [facility] Final Result [facility] [address] [place] [address], * (ABNORMAL) CBC W/DIFF AUTOMATED (04/21/2025 2:01 PM CDT) WBC 11.59(H) 4.5 - 11.0 x10'3/uL 04/21/2025 2:[address] [facility] RBC 4.65 4.20 - 5.40 x10'6/uL 04/21/2025 2:[address] [facility] HGB 14.2 12.0 - 16.0 G/DL 04/21/2025 2:[address] [facility] HCT 41.9 38.0 - 48.0 % 04/21/2025 2:[address] [facility] MCV 90.1 81.0 - 99.0 FL 04/21/2025 2:[address] [facility] MCH 30.5 27.0 - 31.0 PG 04/21/2025 2:[address] [facility] MCHC 33.9 32.0 - 36.0 G/DL 04/21/2025 2:[address] [facility] RDW 12.1 11.5 - 14.5 % 04/21/2025 2:[address] [facility] PLT 383 130 - 400 x10'3/uL 04/21/2025 2:[address] [facility] MPV 9.7 9.3 - 12.2 FL 04/21/2025 2:[address] [facility] DIFFERENTIAL TYPE AUTOMATED DIFFERENTIAL 04/21/2025 2:[address] [facility] NEUTROPHILS % 66.6 % 04/21/2025 2:[address] [facility] LYMPHOCYTES % 24.8 % 04/21/2025 2:[address] [facility] MONOCYTES % 6.7 % 04/21/2025 2:[address] [facility] EOSINOPHILS 1.1 % 04/21/2025 2:[address] [facility] BASOPHILS 0.5 % 04/21/2025 2:[address] [facility] IMMATURE GRANS % 0.3 % 04/21/20 2:[address] [facility] ABS. NEUTROPHILS 7.71(H) 1.80 - 7.70 x10'3/uL 04/21/2025 2:[address] [facility] ABS. LYMPHOCYTES 2.87 1.00 - 4.80 x10'3/uL 04/21/2025 2:[address] [facility] ABS. MONOCYTES 0.78 0.24 - 0.86 x10'3/uL 04/21/2025 2:[address] [facility] ABS. EOSINOPHILS 0.13 0.04 - 0.36 x10'3/uL 04/21/2025 2:[address] [facility] ABS. BASOPHILS 0.06 0.01 - 0.08 x10'3/uL 04/21/2025 2:[address] [facility] ABS. IMMATURE GRANULOCYTES 0.04 0.00 - 0.49 x10'3/uL 04/21/2025 2:[address] [facility] 04/21/2025 2:01 PM CDT [facility] Final Result Performing Organization Address City/[facility]/ZIP Co de Phone Number [facility] [address] [place] [address], [place] [phone] * TROPONIN, QUANT (04/21/2025 2:01 PM CDT) TROPONIN I HIGH SENSITIVITY 6 <54 ng/L 04/21/2025 2:[address] [facility] Comment: HIGH DOSES OF BIOTIN, TROPONIN-SPECIFIC AUTOANTIBODIES, AND ANTIBODY THERAPY CONTAINING HAMA MAY INTERFERE WITH THIS TEST RESULT. CORRELATION TO CLINICAL HISTORY AND PRESENTATION RECOMMENDED. 04/21/2025 2:01 PM CDT [facility] Final Result Performing Organization Address [facility] Co de Phone Number [facility] [address] [place] [address], [place] [phone] * XR LUMB SPINE 3V (04/21/2025 1:48 PM CDT) Anatomical Region Laterality Modality Spine Radiographic Dedra ging 04/21/2025 2:02 PM CDT Impressions 04/21/2025 2:02 PM CDT IMPRESSION: Multilevel degenerative disc disease, worse at L4-5. Referred By: Interpreted By: Kelton Ramos MD, 04/21/2025 2:02 PM Narrative 04/21/2025 2:02 PM [address] [address] Examination: XR LUMB SPINE 3V Exam time: 04/21/2025 1:32 PM Indication: Left leg pain Comparison: None Findings: 3 views of the lumbar spine were obtained. No significant anterolisthesis or retrolisthesis. The pedicles are symmetric. There is moderate degenerative disc disease L4-5. There is mild degenerative disc disease at the remaining levels. No fracture. Procedure Note Kelton Ramos MD - 04/21/[address] [address] Examination: XR LUMB SPINE 3V Exam time: [...] 2:02 PM Narrative 04/21/2025 2:03 PM CDT [address] [address] Examination: XR CHEST PORTABLE Exam time: 04/21/2025 1:32 PM Indication: Left leg pain and swelling Comparison: Chest 01/16/2024 Findings: Upright PA view of the chest was obtained. The heart size is normal. No vascular congestion. No airspace consolidation, pleural effusion, or pneumothorax. Procedure Note Kelton Ramos MD - 04/21/[address] [address] Examination: XR CHEST PORTABLE Exam time: 04/21/2025 [...] Final Result from Last 3 Months Insurance LAUREL LAUREL Care Teams Enterprise Sales Person Relationship Specialty Start Date End Date Jean-Claude Anand MD [id number] [address] PCP - General INTERNAL MEDICINE 04/21/25
--- NOTE | 2025-04-27 09:53 | PC.NURSE ---
0915 RN in room with pt and Dr Cedeño for exam. Dr Cedeño examined pt lungs, heart, abdomin, checked edema.
[2025-04-27 09:59] LABS: Alanine Aminotransferase 55 U/L (6-35); Albumin Level 4.0 g/dL (3.5-5.1); Alkaline Phosphatase 66 U/L (38-126); Anion Gap 10 mmol/L (4-12); Aspartate Amino Transferase 40 U/L (14-36); Bilirubin,Total 0.5 mg/dL (0.2-1.3); Blood Urea Nitrogen 12 mg/dL (7-17); Calcium 8.9 mg/dL (8.4-10.2); Carbon Dioxide 25 mmol/L (22-30); Chloride 106 mmol/L (98-107); Estimated CRCL calculation 127 ml/min; Estimated Glomerular Filt Rate > 60; Glucose 115 mg/dL (65-110); Osmolality Calculated 292 mOsm/kg (285-295); Potassium 4.1 mmol/L (3.4-5.0); Sodium 141 mmol/L (137-145); Total Protein 8.0 g/dL (6.3-8.2)
--- NOTE | 2025-04-27 10:07 | ED.EXTPRO ---
HPI - Extremity Problem General Chief complaint: Extremity Problem,Nontraumatic Stated complaint: leg and hand swelling Time Seen by Provider: 04/27/25 09:25 Source: patient Mode of arrival: ambulatory Limitations: no limitations History of Present Illness HPI Narrative: this is a 29-year-old female with no significant past medical history that presents with some left fullness with sensation of swelling throughout her body with no fever chills no chest pain no shortness of breath no sadness or depression no fever chills no nausea vomiting does not complain of dysuria or hematuria no flank pain. Onset (ago): week(s) Pain Consistency: constant Related Data Home Medications ?Medication ?Instructions ?Recorded ?Confirmed ?Last Taken ?Type lamotrigine 100 mg tablet 100 mg PO DAILY 01/14/24 01/14/24 Unknown History methylphenidate HCl 27 mg 27 mg PO DAILY 01/14/24 01/14/24 Unknown History tablet,extended release 24 hr (Concerta) metoprolol tartrate 50 mg tablet 50 mg PO DAILY 01/14/24 01/14/24 Unknown History Allergies Allergy/AdvReac Type Severity Reaction Status Date / Time amoxicillin Allergy Unknown Verified 04/27/25 10:15 Review of Systems Review of Systems: All systems reviewed & are unremarkable except as noted in HPI and below PMFSH Past Medical History Medical History Tobacco use Obesity Bilateral lower abdominal pain Chronic diarrhea Hematochezia Metatarsal bone fracture Ear infection SVT (supraventricular tachycardia) Surgical History Surgical History History of tympanostomy History of hand surgery LT History of dental surgery H/O cardiac radiofrequency ablation Hx of tonsillectomy Family History Family History Father Alive and well Father Alive and well Social History Social History Smoking status: Current every day smoker Tobacco type: e-cigarettes/vaping Second hand tobacco smoke exposure: Yes Smoking end date: 08/08/18 Alcohol intake: never Alcohol use details: stop due to Substance use: never Substance use type: does not use Living arrangements: with family Occupation/Education: unemployed Gender identity (if verbalized by the patient): Female Sexual Orientation (if Verbalized by the Patient): Straight or Heterosexual Spiritual care concerns: No Exam Const: General: healthy appearing and no acute distress Nutritional Appearance: well nourished Orientation/consciousness: patient oriented x3 Limitations: no limitations HENMT: Head: normal to inspection Eyes: Conjunctivae: conjunctivae normal Pupils: Equal, round and reactive pupils present EOM: EOMs intact bilaterally Neck: Neck: normal visual inspection, no lymphadenopathy and no meningeal signs Chest: Chest palpation & inspection: normal inspection of the chest Resp: Effort & Inspection: normal respiratory effort Auscultation: clear to auscultation bilaterally Cardio: Rate: regular rate Rhythm: regular rhythm GI: GI Palp: Yes Soft to palpation Auscultation: normal bowel sounds : Other: Tenderness in the left suprapubic area palpation Skin: General skin exam: normal color Rashes: no rashes Extrem: General: normal to inspection, no clubbing, cyanosis or edema and no pedal edema Psych: Mental Status: mental status grossly normal Course Course Emergency Course: chest x-ray with no acute pulmonary abnormalities white count mildly elevated 11.7, UA shows positive for urinary tract infection CMP within normal limits TSH within normal limits as well. After reviewing patient's medication Lamictal has been known to cause salt retention and some generalized edema and discussed this with patient and advised her to bring it up with her primary. Vital Signs Vital signs: Vital Signs Temperature 36.4 C 04/27/25 09:05 Pulse Rate 103 H 04/27/25 09:05 Respiratory Rate 20 04/27/25 09:05 Blood Pressure 108/76 04/27/25 09:05 Pulse Oximetry 95 04/27/25 09:05 Oxygen Delivery Room Air 04/27/25 09:05 Temperature 36.4 C 04/27/25 09:05 Pulse Rate 103 H 04/27/25 09:05 Respiratory Rate 20 04/27/25 09:05 Blood Pressure 108/76 04/27/25 09:05 Pulse Oximetry 95 04/27/25 09:05 Oxygen Delivery Room Air 04/27/25 09:05 MDM - Extremity (Nontraumatic) Lab Data 04/27/25 09:40 04/27/25 09:40 Labs: Lab Results 04/27/25 04/27/25 Range/Units 09:30 09:40 WBC 11.7 H (4.8-10.8) K/mm3 RBC 4.18 L (4.20-5.40) M/mm3 Hgb 12.6 (12.0-15.0) g/dL Hct 38.4 (35.0-49.0) % MCV 91.9 (78.0-102.0) fL MCH 30.1 (27.0-31.0) pg MCHC 32.8 (32-36) g/dL RDW 12.3 (11.6-14.4) % Plt Count 296 (150-420) K/mm3 MPV 9.7 (9.2-11.8) fl Immature Gran % (Auto) 0.9 H (0.0-0.0) % Neut % (Auto) 68.9 (50.0-70.0) % Lymph % (Auto) 23.2 (18.0-42.0) % Lipscomb % (Auto) 5.7 (2.0-11.0) % Eos % (Auto) 0.9 L (1.0-6.0) % Baso % (Auto) 0.4 (0.0-1.0) % Lymph # (Auto) 2.71 (1.10-4.50) K/mm3 Lipscomb # (Auto) 0.67 (0.10-0.90) K/mm3 Eos # (Auto) 0.10 (0.02-0.50) K/mm3 Baso # (Auto) 0.05 (0.00-0.10) K/mm3 Abs Immat Gran (auto) 0.10 H (0.00-0.00) K/mm3 Absolute Neuts (auto) 8.04 H (1.70-7.20) K/mm3 Absolute Nucleated RBC 0.00 (0.00-0.00) K/mm3 Nucleated RBC % 0.0 (0-0.0) % Sodium 141 (137-145) mmol/L Potassium 4.1 (3.4-5.0) mmol/L Chloride 106 (98-107) mmol/L Carbon Dioxide 25 (22-30) mmol/L Anion Gap 10 (4-12) mmol/L BUN 12 (7-17) mg/dL Creatinine 0.64 L (0.7-1.0) mg/dL Estim Creat Clear Calc 127 ml/min Estimated GFR > 60 (59 - ) Glucose 115 H (65-110) mg/dL Calculated Osmolality 292 (285-295) mOsm/kg Calcium 8.9 (8.4-10.2) mg/dL Total Bilirubin 0.5 (0.2-1.3) mg/dL AST 40 H (14-36) U/L ALT 55 H (6-35) U/L Alkaline Phosphatase 66 (38-126) U/L Total Protein 8.0 (6.3-8.2) g/dL Albumin 4.0 (3.5-5.1) g/dL TSH Pending Urine Color Light yellow (Yellow) Urine Appearance Clear (Clear) Urine pH 7.0 (5.0-8.0) Ur Specific [place] 1.015 (1.010-1.020) Urine Protein Negative (Negative) Urine Glucose (UA) Negative (Negative) Urine Ketones Negative (Negative) Ur Blood (Man) Negative (Negative) Urine Nitrate Negative (Negative) Urine Bilirubin Negative (Negative) Urine Urobilinogen 0.2 (0.2-1.0) mg/dL Leukocyte Esterase Rfl 1+ H (Negative) RAFY/UL Urine RBC None seen (0-2) /hpf Urine WBC 0-3 (0-3) /hpf Ur Squamous Epith Cells Moderate H (Few) /hpf Urine Bacteria 2+ H (None) /hpf Urine Test Negative Critical Care Time Critical Care Time Critical Care Time: No Discharge Plan Discharge Clinical Impression: UTI (urinary tract infection) Qualifiers: Urinary tract infection type: site unspecified Hematuria presence: without hematuria Qualified Code(s): N39.0 - Urinary tract infection, site not specified Patient Disposition: Home Condition: Stable Instructions: Antibiotic Form, Urinary Tract Infection in Women (ED) Additional Instructions: advised patient to take medication as prescribed and to follow with primary care physician for further evaluation and treatment. Patient Language: Armenian Prescriptions: New nitrofurantoin monohyd/m-cryst [Macrobid] 100 mg capsule 100 mg PO Q12H 7 Days Qty: 14 0RF Rx Instructions: must administer with a meal/food No Action metoprolol tartrate 50 mg tablet 50 mg PO DAILY lamotrigine 100 mg tablet 100 mg PO DAILY methylphenidate HCl [Concerta] 27 mg tablet extended release 24hr 27 mg PO DAILY (DME) Aerochamber Plus Z Stat Spacer See Rx Instructions .Route Qty: 1 0RF Rx Instructions: As directed Follow-up/Referrals: Jean-Claude Anand MD [Primary Care Provider, Hospitalist] Time of Disposition: 10:32
[2025-04-27 10:30] LABS: Thyroid Stimulating Hormone 1.790 uIU/mL (0.465-4.680)
[2025-04-27 10:36] VITALS: BP 108/74; PULSE 73; RESP 20; O2SAT 94
== END 2025-04-27 10:36 | disposition home or self-care (01) ==
PROVIDERS: Emergency Provider Emergency Medicine; PCP Internal Medicine
DX: N39.0 Urinary tract infection, site not specified (principal); F17.290 Nicotine dependence, other tobacco product, uncomplicated
CPT/HCPCS: 36415; 71045; 80053; 81001; 81025; 84443; 85025; 93005; 99283

== ENCOUNTER 2025-05-10 08:29 | Outpatient (CLI) | payer OTHER, SELFPAY ==
--- NOTE | ~2025-05-10 | US_ITS ---
EXAMINATION: US venous doppler LE , 05/10/2025 8:34 CDT HISTORY: M79.605 - Pain in left leg Comparison: None Technique: Arredondo-scale and color Doppler images were attempted of the lower saphenofemoral junction, common femoral vein,superficial femoral vein, proximal deep femoral vein, proximal deep femoral vein, popliteal vein and posterior tibial veins. Findings: Deep Venous System:Normal flow, augmentation and compressibility. No echogenic thrombus identified. The contralateral saphenofemoral junction appears unremarkable. Superficial Venous SystemNo superficial thrombophlebitis. Soft tissues: Soft tissues are unremarkable. Impression: Negative for DVT. Reviewed, dictated and finalized at location P. Impression: Negative for DVT.
--- OUTSIDE RECORDS SUMMARY | 2025-05-10 08:34 | XMS_ITS | Clinical Summary ---
Author Organization [facility] [employer] Address [address] [facility] [place] [address] Care Team Providers Care Pluck Separator Name Role Phone Martnelda Marlena Wetzel APRN-MANAGER MARITIME Primary Care Provider Source Comments [facility] [employer],non-owned Affiliates and Associated Physician Practices is amultiple site organization consisting of ambulatory clinics and hospital sitesin [place], [place], [place] and [place]. This disclosure is being madepursuant to the Care Everywhere program and may not contain all information available regarding this patient. Last updated 18.[facility] [employer] Allergies No known active allergies Medications * [...] Reasons: Manic-Depression 30 tablet 09/12/2024 2:56 PM KINDERGARTEN TEACHER ASSISTANT 5 Active QUEtiapine (SEROquel) 100 MG tabletIndicatio ns:Depressive Phase Bipolar Mood Disorder,Genera lized Anxiety Disorder,Insomn ia Take 1 (one) tablet by mouth at bedtime Reasons: Depressive Phase of Manic-Depression , Generalized Anxiety Disorder, Trouble Sleeping 30 tablet 09/12/2024 2:56 PM KINDERGARTEN TEACHER ASSISTANT 5 Active metoprolol succinate XL 24hr (Toprol XL) 25 MG tabletIndicatio ns:Hypertension Take 1 (one) tablet by mouth once daily Reasons: High Blood Pressure 30 tablet 09/12/2024 2:56 PM KINDERGARTEN TEACHER ASSISTANT 5 Active Active Problems Problem Noted Date Diagnosed Date Bipolar disorder, current ep isode depressed, severe, without psychotic features 09/08/2024 Family History Medical History Relation Name Comments [place]<65(female) Maternal Aunt Diabetes - Type 2 Other [...] Recorded Patient Health Questionnaire-2 Score 6 09/08/2024 [facility] of Occupat ional Health - Occupational Stress [...] any time in the past 12 m [facility], were you homeless or living in a halfway (including now)? No 09/08/2024 Comments Unknown Sex and Gender Information Value Date Recorded Sex Assigned at Not on file Legal Sex Female 5:42 AM KINDERGARTEN TEACHER ASSISTANT Gender Identity Not on file Sexual Orientation Not on file Last Filed Vital Signs Vital Sign Reading Time Taken Comments Blood Pressure 116/74 09/12/2024 8:03 AM KINDERGARTEN TEACHER ASSISTANT Pulse 81 09/12/2024 8:03 AM KINDERGARTEN TEACHER ASSISTANT Temperature 36.8 C (98.2 F) 09/12/2024 8:03 AM KINDERGARTEN TEACHER ASSISTANT Respiratory Rate 16 09/12/2024 8:03 AM KINDERGARTEN TEACHER ASSISTANT Oxygen Saturation 100% 09/12/2024 8:03 AM KINDERGARTEN TEACHER ASSISTANT Inhaled Oxygen Concentration - - Weight 93.6 kg (206 lb 6.4 oz) 09/08/2024 4:33 A M KINDERGARTEN TEACHER ASSISTANT Height 157.5 cm (5' 2) 09/08/2024 4:33 AM KINDERGARTEN TEACHER ASSISTANT Body Mass Index 37.75 09/08/2024 4:33 AM KINDERGARTEN TEACHER ASSISTANT Plan of Treatment Health Maintenance Due Date [...] patient's age to complete this topic Insurance [facility] Advance Directives * Full Code (Latest Code Status on File) Date Activated Date Inactivated Comments 09/08/2024 4:31 AM 09/12/2024 7:17 PM Care Teams Pluck Separator Relationship Specialty Start Date End Date Marlena Lyn, LOCKSTITCH HEMMER-MANAGER MARITIME PCP - General 03/30/19
[2025-05-10 09:04] LABS: Hematocrit 40.4 % (35.0-49.0); Hemoglobin 13.2 g/dL (12.0-15.0); Mean Corpuscular HGB Conc 32.7 g/dL (32-36); Mean Corpuscular Hemoglobin 30.3 pg (27.0-31.0); Mean Corpuscular Volume 92.9 fL (78.0-102.0); Platelet Count Result 355 K/mm3 (150-420); Red Blood Count 4.35 M/mm3 (4.20-5.40); White Blood Count 8.2 K/mm3 (4.8-10.8)
[2025-05-10 09:17] LABS: Hemoglobin A1C 5.2 % (<5.7)
[2025-05-10 09:46] LABS: Alanine Aminotransferase 53 U/L (6-35); Albumin Level 4.3 g/dL (3.5-5.1); Alkaline Phosphatase 66 U/L (38-126); Anion Gap 12 mmol/L (4-12); Aspartate Amino Transferase 38 U/L (14-36); Bilirubin,Total 0.5 mg/dL (0.2-1.3); Blood Urea Nitrogen 7 mg/dL (7-17); Calcium 9.7 mg/dL (8.4-10.2); Carbon Dioxide 25 mmol/L (22-30); Chloride 106 mmol/L (98-107); Cholesterol 215 mg/dL (0-200); Estimated Glomerular Filt Rate > 60; Glucose 103 mg/dL (65-110); HDL Direct 34 mg/dL; Osmolality Calculated 294 mOsm/kg (285-295); Potassium 4.7 mmol/L (3.4-5.0); Sodium 143 mmol/L (137-145); Total Protein 8.2 g/dL (6.3-8.2); Triglycerides 234 mg/dL (<150)
[2025-05-10 10:15] LABS: Thyroid Stimulating Hormone 1.570 uIU/mL (0.465-4.680)
== END 2025-05-10 08:30 | disposition home or self-care (01) ==
LOC: CHSIMG 08:30
PROVIDERS: PCP Nurse Practitioner; Visit Provider Nurse Practitioner
DX: I10 Essential (primary) hypertension (principal); E78.5 Hyperlipidemia, unspecified; R73.03 Prediabetes; E03.9 Hypothyroidism, unspecified; E55.9 Vitamin D deficiency, unspecified; M79.605 Pain in left leg
CPT/HCPCS: 36415; 80053; 80061; 82306; 83036; 84443; 85027; 93971

== ENCOUNTER 2025-05-14 07:48 | Outpatient (CLI) | payer OTHER, SELFPAY ==
--- OUTSIDE RECORDS SUMMARY | 2025-05-14 07:51 | XMS_ITS | Clinical Summary ---
Author Organization [facility] Address [address] [place] [address] Care Team Providers Care Blending Operator Name Role Phone Jean-Claude Anand MD Primary Care Provider [phone] Allergies No known active allergies Medications metoprolol [...] Noted Date Diagnosed Date SVT (supraventricular tachycardia) ([facility]) Encounters Date Type Department Care Team Description 04/28/2025 12:27 PM CDT - 04/28/2025 12:28 PM CDT Emergency [facility] [place] [address] Discharge Disposition: Left Against Medical Advice 04/21/2025 1:39 PM CDT - 04/21/2025 4:26 PM CDT Emergency [facility] [place] [address] Ellyn Hung PA Leg Swelling Discharge Disposition: [...] Sign Reading Time Taken Comments Blood Pressure 118/82 04/28/2025 12:20 PM CDT Pulse 107 04/28/2025 12:20 PM CDT Temperature 36.6 C (97.9 F) 04/28/2025 12:20 PM CDT Respiratory Rate 16 04/28/2025 12:2 0 PM CDT Oxygen Saturation 98% 04/28/2025 12: 20 PM CDT Inhaled Oxygen Concentration - - Weight 103.7 kg (228 lb 9.9 oz) 025 12:20 PM CDT Height 157.5 cm (5' 2) 04/28/2025 12:2 0 PM CDT Body Mass Index 41.81 04/28/2025 12:20 PM CDT Plan of Treatment Health Maintenance Due Date Last Done Comments Cervical Cancer Screening Pap Smear (Age 21 to 29) Every 3 Years 1996 Cervical Cancer Screening 1996 Annual Physical 1999 Hepatitis C 2014 DTaP, Tdap and Td Vaccines (7 - Td or Tdap) 01/20/2017 01/20/2007, 01/17/2001, 08/28/1997, Additional history exists COVID-19 Vaccine ( season) 2025 Influenza Adult (#1) 2025 Hepatitis B Vaccines Completed 1996, 1996, [...] PM CDT) 04/21/2025 2:09 PM CDT Narrative [facility] - 04/21/2025 5:56 PM CDT [facility] [address] Test Date: 2025-04-21 Pat Name: RONNY PINK Department: 41 Room: [facility] Gender: Female Java Software Developer: MARY : 1995 Requested By: ELLYN HUNG Order Number: [id number] Reading MD: Uriah Rome Measurements Intervals [place] Rate: 81 P: 37 MS: 153 QRS: 18 QRSD: 86 T: 26 QT: 357 QTc: 415 Interpretive Statements SINUS RHYTHM WITH SINUS ARRHYTHMIA Compared to ECG 01/16/2024 14:49:43 No significant changes . Procedure Note Uriah Rome MD - 04/21/[address] Test Date: 2025-04-21 Pat Name: RONNY PINK Department: 41 Room: [facility] Gender: Female Java Software Developer: MARY : 1995 Requested By: ELLYN HUNG Order Number: [id number] Reading MD: Uriah Rome Measurements Intervals [place] Rate: 81 P: 37 MS: 153 QRS: 18 QRSD: 86 T: 26 QT: 357 QTc: 415 Interpretive Statements SINUS RHYTHM WITH SINUS ARRHYTHMIA Compared to ECG 01/16/2024 14:49:43 No significant changes . Ellyn MELVIN ECG ORDERABLES Final Result [facility] * POCT urine (04/21/2025 2:02 PM CDT) [facility] URINE HCG TEST NEGATIVE Internal Control: VALID 04/21/2025 2:02 PM CDT Ellyn MELVIN POINT OF CARE TEST ORDERABLES Final Result * (ABNORMAL) BASIC METABOLIC PANEL (04/21/2025 2:01 PM CDT) [facility] GLUCOSE 92 70 - 99 MG/DL 04/21/2025 2:30 PM CDT [facility] BUN 6(L) 7 - 18 MG/DL 04/21/2025 2:30 PM CDT [facility] CREATININE S/P/B 0.76 0.55 - 1.02 MG/DL 04/21/2025 2:30 PM CDT [facility] SODIUM S/P/B 138 136 - 145 MMOL/L 04/21/2025 2:30 PM CDT [facility] POTASSIUM S/P/B 4.1 3.5 - 5.1 MMOL/L 04/21/2025 2:30 PM CDT [facility] CHLORIDE S/P/B 108 97 - 115 MMOL/L 04/21/2025 2:30 PM CDT [facility] CO2 26.5 21 - 32 MMOL/L 04/21/2025 2:30 PM CDT [facility] CALCIUM S/P/B 9.5 8.5 - 10.1 MG/DL 04/21/2025 2:30 PM CDT [facility] ANION GAP 3.5 2 - 10 MMOL/L 04/21/2025 2:30 PM CDT [facility] BUN CREATININE RATIO 7.9 6 - 26 04/21/2025 2:30 PM CDT [facility] GFR ESTIMATE >90 >90 ML/MIN/1.7 3 M2 04/21/2025 2:30 PM CDT [facility] Comment: NOTE: eGFR is not calculated for patients <18 years of age or gender unknown. This is an estimated GFR calculation using the new CKD EPI creatinine equation without race and so does not require a correction factor for race. This estimated GFR should not be used for calculating drug doses. 04/21/2025 2:01 PM CDT Ellyn MELVIN LABORATORY Final Result [facility] [address] [place] [address], [place] [phone] * D-DIMER, QUANTITATIVE (04/21/2025 2:01 PM CDT) [facility] D-DIMER <215 0 - 500 ng{FEU}/mL 04/21/2025 2:46 PM CDT [facility] Comment: D-Dimer values less than [...] PM CDT [facility]OR[facility] Final Result [facility] [address] [place] [address], * (ABNORMAL) CBC W/DIFF AUTOMATED (04/21/2025 2:01 PM CDT) [facility] WBC 11.59(H) 4.5 - 11.0 x10'3/uL 04/21/2025 2:21 PM CDT [facility] RBC 4.65 4.20 - 5.40 x10'6/uL 04/21/2025 2:21 PM CDT [facility] HGB 14.2 12.0 - 16.0 G/DL 04/21/2025 2:21 PM CDT [facility] HCT 41.9 38.0 - 48.0 % 04/21/2025 2:21 PM CDT [facility] MCV 90.1 81.0 - 99.0 FL 04/21/2025 2:21 PM CDT [facility] MCH 30.5 27.0 - 31.0 PG 04/21/2025 2:21 PM CDT [facility] MCHC 33.9 32.0 - 36.0 G/DL 04/21/2025 2:21 PM CDT [facility] RDW 12.1 11.5 - 14.5 % 04/21/2025 2:21 PM CDT [facility] PLT 383 130 - 400 x10'3/uL 04/21/2025 2:21 PM CDT [facility] MPV 9.7 9.3 - 12.2 FL 04/21/2025 2:21 PM CDT [facility] DIFFERENTIAL TYPE AUTOMATED DIFFERENTIAL 04/21/2025 2:21 PM CDT [facility] NEUTROPHILS % 66.6 % 04/21/2025 2:21 PM CDT [facility] LYMPHOCYTES % 24.8 % 04/21/2025 2:21 PM CDT [facility] MONOCYTES % 6.7 % 04/21/2025 2:21 PM CDT [facility] EOSINOPHILS 1.1 % 04/21/2025 2:21 PM CDT [facility] BASOPHILS 0.5 % 04/21/2025 2:21 PM CDT [facility] IMMATURE GRANS % 0.3 % 04/21/20 2:21 PM CDT [facility] ABS. NEUTROPHILS 7.71(H) 1.80 - 7.70 x10'3/uL 04/21/2025 2:21 PM CDT [facility] ABS. LYMPHOCYTES 2.87 1.00 - 4.80 x10'3/uL 04/21/2025 2:21 PM CDT [facility] ABS. MONOCYTES 0.78 0.24 - 0.86 x10'3/uL 04/21/2025 2:21 PM CDT [facility] ABS. EOSINOPHILS 0.13 0.04 - 0.36 x10'3/uL 04/21/2025 2:21 PM CDT [facility] ABS. BASOPHILS 0.06 0.01 - 0.08 x10'3/uL 04/21/2025 2:21 PM CDT [facility] ABS. IMMATURE GRANULOCYTES 0.04 0.00 - 0.49 x10'3/uL 04/21/2025 2:21 PM CDT [facility] 04/21/2025 2:01 PM CDT [facility] Final Result [facility] [address] [place] [address], [place] [phone] * TROPONIN, QUANT (04/21/2025 2:01 PM CDT) TROPONIN I HIGH SENSITIVITY 6 <54 ng/L 04/21/2025 2:34 PM CDT [facility] Comment: HIGH DOSES OF BIOTIN, TROPONIN-SPECIFIC AUTOANTIBODIES, AND ANTIBODY THERAPY CONTAINING HAMA MAY INTERFERE WITH THIS TEST RESULT. CORRELATION TO CLINICAL HISTORY AND PRESENTATION RECOMMENDED. 04/21/2025 2:01 PM CDT [facility]OR[facility] Final Result [facility] [address] [place] [address], [place] [phone] * XR LUMB SPINE 3V (04/21/2025 1:48 PM CDT) Anatomical Region Laterality Modality Spine Radiographic Dedra ging 04/21/2025 2:02 PM CDT Impressions 04/21/2025 2:02 PM CDT IMPRESSION: Multilevel degenerative disc disease, worse at L4-5. Referred By: Interpreted By: Kelton Ramos MD, 04/21/2025 2:02 PM Narrative 04/21/2025 2:[address] [address] Examination: XR LUMB SPINE 3V Exam time: 04/21/2025 1:32 PM Indication: Left leg pain Comparison: None Findings: 3 views of the lumbar spine were obtained. No significant anterolisthesis or retrolisthesis. The pedicles are symmetric. There is moderate degenerative disc disease L4-5. There is mild degenerative disc disease at the remaining levels. No fracture. Procedure Note Kelton Ramos MD - 04/21/[address] [address] Examination: XR LUMB SPINE 3V Exam time: [...] 2:02 PM Narrative 04/21/2025 2:03 PM CDT [address] [address] Examination: XR CHEST PORTABLE Exam time: 04/21/2025 1:32 PM Indication: Left leg pain and swelling Comparison: Chest 01/16/2024 Findings: Upright PA view of the chest was obtained. The heart size is normal. No vascular congestion. No airspace consolidation, pleural effusion, or pneumothorax. Procedure Note Kelton Ramos MD - 04/21/[address] [address] Examination: XR CHEST PORTABLE Exam time: 04/21/2025 [...] Final Result from Last [address] [place] [address] Care Teams Blending Operator Relationship Specialty Start Date End Date Jean-Claude Anand MD [address] [address] PCP - General INTERNAL MEDICINE 04/21/25
--- OUTSIDE RECORDS SUMMARY | 2025-05-14 07:51 | XMS_ITS | Clinical Summary ---
Author Organization [facility] [employer] Address [address] [place] [address] Care Team Providers Care Conference Organizer Name Role Phone Martnelda Marlena Wetzel APRN-CHUTE WORKER Primary Care Provider Source Comments [facility] [employer],non-owned Affiliates and Associated Physician Practices is amultiple site organization consisting of ambulatory clinics and hospital sitesin [place], [place], [place] and [place]. This disclosure is being madepursuant to the Care Everywhere program and may not contain all information available regarding this patient. Last updated 18.[facility] [employer] Allergies No known active allergies Medications * [...] Reasons: Manic-Depression 30 tablet 09/12/2024 2:56 PM MERCHANDISE ADJUSTMENT CLERK 5 Active QUEtiapine (SEROquel) 100 MG tabletIndicatio ns:Depressive Phase Bipolar Mood Disorder,Genera lized Anxiety Disorder,Insomn ia Take 1 (one) tablet by mouth at bedtime Reasons: Depressive Phase of Manic-Depression , Generalized Anxiety Disorder, Trouble Sleeping 30 tablet 09/12/2024 2:56 PM MERCHANDISE ADJUSTMENT CLERK 5 Active metoprolol succinate XL 24hr (Toprol XL) 25 MG tabletIndicatio ns:Hypertension Take 1 (one) tablet by mouth once daily Reasons: High Blood Pressure 30 tablet 09/12/2024 2:56 PM MERCHANDISE ADJUSTMENT CLERK 5 Active Active Problems Problem Noted Date Diagnosed Date Bipolar disorder, current ep isode depressed, severe, without psychotic features 09/08/2024 Family History Medical History Relation Name Comments [place]<65(female) Maternal Aunt Diabetes - Type 2 Other [...] Recorded Patient Health Questionnaire-2 Score 6 09/08/2024 [facility] Head of Occupat ional Health - Occupational Stress [...] any time in the past 12 m [facility], were you homeless or living in a fpc (including now)? No 09/08/2024 Comments Unknown Sex and Gender Information Value Date Recorded Sex Assigned at Not on file Legal Sex Female 5:42 AM MERCHANDISE ADJUSTMENT CLERK Gender Identity Not on file Sexual Orientation Not on file Last Filed Vital Signs Vital Sign Reading Time Taken Comments Blood Pressure 116/74 09/12/2024 8:03 AM MERCHANDISE ADJUSTMENT CLERK Pulse 81 09/12/2024 8:03 AM MERCHANDISE ADJUSTMENT CLERK Temperature 36.8 C (98.2 F) 09/12/2024 8:03 AM MERCHANDISE ADJUSTMENT CLERK Respiratory Rate 16 09/12/2024 8:03 AM MERCHANDISE ADJUSTMENT CLERK Oxygen Saturation 100% 09/12/2024 8:03 AM MERCHANDISE ADJUSTMENT CLERK Inhaled Oxygen Concentration - - Weight 93.6 kg (206 lb 6.4 oz) 09/08/2024 4:33 A M MERCHANDISE ADJUSTMENT CLERK Height 157.5 cm (5' 2) 09/08/2024 4:33 AM MERCHANDISE ADJUSTMENT CLERK Body Mass Index 37.75 09/08/2024 4:33 AM MERCHANDISE ADJUSTMENT CLERK Plan of Treatment Health Maintenance Due Date [...] patient's age to complete this topic Insurance [facility] Advance Directives * Full Code (Latest Code Status on File) Date Activated Date Inactivated Comments 09/08/2024 4:31 AM 09/12/2024 7:17 PM Care Teams Conference Organizer Relationship Specialty Start Date End Date Marlena Lyn, SHEET TAILER-CHUTE WORKER PCP - General 03/30/19
--- OUTSIDE RECORDS SUMMARY | 2025-05-14 07:51 | XMS_ITS | Clinical Summary ---
Author Organization [facility] Address [address] [place] [address] Phone Care Team Providers Care Waiter/Waitress Room Service Name Role Phone Maria Fernanda De La [...] 03/18/2025 1:00 PM CDT Outpatient Clinic Visit [facility] [address] [place] [phone] Gilson Garcia PSYD Autism spectrum disorder, without accompanying intellectual or language impairment, requiring support (level 1) (Primary Dx); Major depressive disorder, single episode, moderate (HCC) Discharge Disposition: Discharged to home or Selfcare 03/18/2025 Travel 02/28/2025 10:00 AM CDT Telemedicine [facility] [address] [place] [phone] Gilson Garcia PSYD Unspecified neurodevelopmental disorder, 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
--- NOTE | 2025-06-04 13:24 | P.SLEEP_ITS ---
Sleep Study - Home Unattended Date of Study: 05/14/25 Ordering Provider: Jean-Claude Anand MD Interpreting Provider: Pilar Barnhart DO Home Sleep Study Type: Watch PAT Height: 1.6 m Weight: 101.605 kg Body Mass Index: 39.6 Neck Circumference (inches): 15.5 [place]: 9 Reason for Sleep Study Daytime hypersomnia, difficulty falling and staying asleep Sleep History The patient is a 30-year-old female that had a sleep study ordered by her primary care physician for evaluation of sleep apnea. The patient admits to excessive daytime sleepiness, interruptions in breathing while asleep, trouble falling asleep and trouble maintaining sleep. She denies snoring loudly. She denies choking or gasping at night. She does have trouble breathing on her back. She does have morning headaches. She does have a dry or sore mouth/ throat in the morning. She urinates more than 3 times throughout the night. She does have difficulty returning to sleep if she wakes up throughout the night. She denies any hypnotic or sedative use. She does feel anxious about sleep. She does feel tired or sleepy during the day. She does feel tired in the morning. She does have the urge to fall asleep during the day. She does fe el drowsy while driving. She denies sleep paralysis, cataplexy and hypnagogic/ hypnopompic hallucinations. She does clench or grind her teeth. She denies kicking or jerking her legs excessively. She denies having a restless feeling in her legs. She does to bed at midnight every night. It takes her 1 hour to fall asleep on work days and 3 hours on her days off. She gets 6 hours of sleep on work days and 4 hours on her days off. Her sleep is not restorative on her days off. She denies taking any planned naps. She denies dream enactment behavior. She denies sleep walking. She consumes 1-2 cups of caffeinated beverage per day. She smokes less than 5 cigarettes per day. She denies alcohol consumption. She denies exercising on a regular basis. [facility] Past Medical History Medical History Pre-diabetes Morbid obesity Dysmenorrhea Tobacco use Obesity Bilateral lower abdominal pain Chronic diarrhea Hematochezia Metatarsal bone fracture Ear infection SVT (supraventricular tachycardia) Surgical History Surgical History History of tympanostomy History of hand surgery LT History of dental surgery H/O cardiac radiofrequency ablation Hx of tonsillectomy Family History Family History Father No problems noted. Mother Diabetes mellitus Sibling No problems noted. Social History Social History Smoking status: Former smoker Tobacco type: e-cigarettes/vaping Second hand tobacco smoke exposure: Yes Smoking end date: 08/08/18 Alcohol intake: never Alcohol use details: stop due to Substance use: never Substance use type: does not use Do You Feel Safe in your Home?: Yes Lack of Transportation: No Lack of Food: Never True Current Housing: I Have Housing Concerned About Future Housing: No Difficulty Paying Gas/Electric Bills: No Difficulty Paying for Meds: No Currently Unemployed: No Education: Trade/Vocational Certificate Living arrangements: with family Occupation/Education: unemployed Gender identity (if verbalized by the patient): Female Sexual Orientation (if Verbalized by the Patient): Straight or Heterosexual Spiritual care concerns: No Medications Home Medications ?Medication ?Instructions ?Recorded ?Confirmed ?Type lamotrigine 100 mg tablet 100 mg PO DAILY 01/14/24 History drospirenone (contraceptive) 4 mg 4 mg PO DAILY 05/31/25 History (28) tablet (Slynd) Sleep Procedure The sleep study was completed using KnodiumT a technically adequate device with seven channels: peripheral arterial tone, actigraphy, body position, snore, respiratory movement, pulse oximetry, sleep staging, and heart rate. Prior to using the device, the patient received verbal and written instructions for its application and was provided with the help desk phone number for additional telephonic instruction with 24-hour availability of qualified personnel to answer questions. The study was scored using CMS guidelines. Sleep Architecture The total recording time is 8 hrs, 30 min. The total sleep time is 7 hrs, 34 min. Sleep latency is 18 minutes. REM latency is 69 minutes. The patient had 6 episodes of waking. Sleep architecture shows 28.5% deep sleep, 40.9% light sleep, and (as % Total Sleep Time) showed NREM (Light 40.9%; Deep 28.5%), and a 30.6% stage REM. The patient spent 100.0% of total sleep time in the supine position. Sleep efficiency was 89.02. Respiratory Analysis The overall AHI (pAHI 4%:) is 1.6. The overall AHI (pAHI 3%:) is 2.3. The central AHI is 0.3. The AHI was 0.4 in NREM and 6.5 in REM sleep. The AHI was 2.3 in Supine and N/A in Non-supine sleep. Percent of Juan Alberto Eaton respirations is 0.0. Oximetry Data The oxygen desaturation index (DANIEL 4%:) is 1.2. The mean saturation is 94%, and the lowest saturation is 88%. Time spent with saturation < 88% is 0.2 minutes. Snoring Profile Snoring average intensity is 40 dB. The patient snored above 45 decibels for 4.9 minutes, 1.1% of sleep time. Cardiac Profile The average pulse rate is 71 beats per minutes. The lowest pulse rate is 47 bpm. The highest pulse rate reported is 112 bpm. Atrial fibrillation was not det ected. Premature beats occur <0.1 per minute. Assessment and Plan Assessment and Plan (1) Sleep disturbances: Code(s): G47.9 - Sleep disorder, unspecified Status: Acute Assessment and Plan: The patient had an overall AHI of 1.6 with desaturation down to 88%. This is not consistent with sleep-disordered breathing. Due to the severity of the patient's symptoms, further evaluation is warranted. I recommend that the patient have a split study with the use of a hypnotic to ensure we obtain enough sleep data. Data The data obtained during this sleep study is adequate for interpretation. Certification This sleep study has been reviewed by a board certified sleep medicine physician.
== END 2025-05-15 13:13 | disposition home or self-care (01) ==
LOC: ANHCSM 07:49
PROVIDERS: PCP Nurse Practitioner; Visit Provider Internal Medicine
DX: G47.33 Obstructive sleep apnea (adult) (pediatric) (principal)
CPT/HCPCS: 95800

== ENCOUNTER 2025-06-24 10:27 | Outpatient (CLI) | payer OTHER, SELFPAY ==
--- NOTE | 2025-06-24 10:31 | EST_ITS ---
Patient Info Name: Tamy Pink Age: 30 years : 1995 Gender: Female Ht: 63 in Wt: 229 lbs BSA: 2.20 m2 HR: 84 bpm BP: 94 / 68 mmHg Heart Rhythm: Sinus Rhythm Technical Quality: Good Exam Date: 06/24/2025 10:31 AM Patient Status: O Admit Date: 06/24/2025 Exam Type: CA stress test treadmill A treadmill exercise stress test was performed. Staff Attending Provider: Fei Kwong DO Summary 1. 1. Negative Federico exercise stress test for ischemic ST changes by ECG criteria. 2. 2. Reduced functional capacity, achieving 7 METs of workload. 3. 3. Hypertensive response to exercise. 4. 4. Appropriate HR response to exercise. 5. 5. Appropriate HR recovery at 1 minute post exercise. 6. 6. No imaging with stress testing. History/Risk Factors Dyslipidemia: Yes Obesity: Yes Protocol: Federico Stress ECG Details Stage: REST Duration (min): 1 min : 25 sec Speed (mph): 0.0 Grade (%): 0 HR (bpm): 85 SBP (mmHg): 94 DBP (mmHg): 68 METS: --- Stage: REST Duration (min): 3 min : 31 sec Speed (mph): 0.0 Grade (%): 0 HR (bpm): 93 SBP (mmHg): 94 DBP (mmHg): 68 METS: --- Stage: STAGE 1 Duration (min): 1 min : 0 sec Speed (mph): 1.7 Grade (%): 10 HR (bpm): 124 SBP (mmHg): 94 DBP (mmHg): 68 METS: --- Stage: STAGE 1 Duration (min): 2 min : 0 sec Speed (mph): 1.7 Grade (%): 10 HR (bpm): 137 SBP (mmHg): 94 DBP (mmHg): 68 METS: --- Stage: STAGE 1 Duration (min): 3 min : 0 sec Speed (mph): 1.7 Grade (%): 10 HR (bpm): 137 SBP (mmHg): 131 DBP (mmHg): 54 METS: --- Stage: STAGE 2 Duration (min): 1 min : 0 sec Speed (mph): 2.5 Grade (%): 12 HR (bpm): 154 SBP (mmHg): 131 DBP (mmHg): 54 METS: --- Stage: STAGE 2 Duration (min): 2 min : 0 sec Speed (mph): 2.5 Grade (%): 12 HR (bpm): 165 SBP (mmHg): 131 DBP (mmHg): 54 METS: --- Stage: STAGE 2 Duration (min): 2 min : 59 sec Speed (mph): 3.4 Grade (%): 14 HR (bpm): 174 SBP (mmHg): 191 DBP (mmHg): 70 METS: --- Stage: RECOVERY Duration (min): 1 min : 0 sec Speed (mph): 0.0 Grade (%): 0 HR (bpm): 156 SBP (mmHg): 191 DBP (mmHg): 70 METS: --- Stage: RECOVERY Duration (min): 2 min : 0 sec Speed (mph): 0.0 Grade (%): 0 HR (bpm): 130 SBP (mmHg): 244 DBP (mmHg): 76 METS: --- Stage: RECOVERY Duration (min): 3 min : 0 sec Speed (mph): 0.0 Grade (%): 0 HR (bpm): 110 SBP (mmHg): 244 DBP (mmHg): 76 METS: --- Stage: RECOVERY Duration (min): 4 min : 0 sec Speed (mph): 0.0 Grade (%): 0 HR (bpm): 113 SBP (mmHg): 264 DBP (mmHg): 82 METS: --- Stage: RECOVERY Duration (min): 5 min : 0 sec Speed (mph): 0.0 Grade (%): 0 HR (bpm): 106 SBP (mmHg): 264 DBP (mmHg): 82 METS: --- Stage: RECOVERY Duration (min): 6 min : 0 sec Speed (mph): 0.0 Grade (%): 0 HR (bpm): 108 SBP (mmHg): 113 DBP (mmHg): 67 METS: --- Stage: RECOVERY Duration (min): 6 min : 12 sec Speed (mph): 0.0 Grade (%): 0 HR (bpm): 101 SBP (mmHg): 113 DBP (mmHg): 67 METS: --- Rest HR: 93 bpm Peak HR: 174 bpm Rest Sys BP: 94 mmHg Peak Sys BP: 264 mmHg Max Pred HR: 191 bpm % Max Pred HR: 91 % Target HR: 162 bpm Max RPP: 45,936 bpm*mmHg Marinelli Score: -2 Target HR Summary: Test terminated after reaching target heart rate (85% max predicted) BP Response: Patient exhibited a hypertensive response with stress Termination Reason: Dyspnea,Fatigue,faster walking,deconditioned Cardiac Symptoms: None Max ST Seg Deviation: 1.60 mm Total Time: 6 min : 0 sec Rest Thompson BP: 68 mmHg Peak Thompson BP: 82 mmHg Angina Score: None Total METS: 7.1 Resting ECG Normal sinus rhythm. Stress ECG No abnormal ST/T wave changes with exercise. Arrhythmias Occasional PVCs. Report Signatures
--- OUTSIDE RECORDS SUMMARY | 2025-06-24 19:32 | XMS_ITS | Data Portability ---
Author Organization [employer] , [facility] Address [address] [place] [address] Assessment No assessment recorded. Plan of Treatment Reminders Order Date Submit Date Provider Last Modified By Organization Details Last Modified Time Details Appointments None recorded. Lab test, urine 2024 025 [facility], [address] [place], [address], 5 15:41:55 unlisted lab - STD screening ([facility]) 2024 025 [facility], [address] [place], [address], 5 13:23:45 CT + NG DNA, PCR, unspecified specimen 2024 025 [facility], [address] [place], [address], 5 14:40:17 unlisted lab - Pap reflex hold 2024 025 [email or web address] [facility], [address] [place], [address], 5 14:15:51 pap, LB 2024 025 [facility], [address] [facility], [place], [address], 5 10:31:10 test, urine 2021 022 [email or web address] 0 [facility], [address], [place], [address], 11:44:49 CT + NG DNA, PCR, unspecified specimen 2021 [facility] Daryn, [address] [place], [address], 10:31:08 unlisted lab - Pap reflex hold 2021 WICHITA [facility], [address] [place], [address], 10:25:47 pap, LB 2021 [facility], [address] [place], [address], 18:04:33 Referral pelvic floor therapy referral 2022 023 [facility] Physical [facility], [address] [place], [address], 14:47:07 Procedures None recorded. Surgeries None recorded. Imaging None recorded. Medication Orders norethindro ne (contracept bonnie) 0.35 mg tablet 2022 023 [email or web address] 1 [facility], [address] [place], [address], 5 14:00:44 Lo Loestrin Fe 1 mg-10 mcg (24)/10 mcg (2) tablet 2021 022 [facility], [address] [place], [address], 17:42:47 Patient TargetsNo targets recorded. Patient Instructions Encounter Date Encounter Id Patient Instructions Last Modified By Organization Details Last Modified Time 02/18/2022 [id number] A healthy lifestyle: care instructions [email or web address] Not available 02/18/2022 11:43:05 control counseling [email or web address] Not available 02/18/2022 11:43:05 exposure to sexually transmitted infections: care instructions [email or web address] Not available 02/18/2022 11:43:05 - Refrain from [...] ureaplasma/mycopla sma testing and treatment, if indicated. [email or web address] Not available 02/17/2022 14:13:17 06/27/2023 [id number] learning about control fely Not available 06/27/2023 13:46:32 04/22/2025 [id number] A healthy lifestyle: care instructions Not available 04/22/2025 15:41:55 A healthy lifestyle: care instructions Not available 04/22/2025 15:41:55 substance use disorder: care instructions Not available 04/22/2025 15:41:55 tobacco cessation Not availabl e 04/22/2025 15:41:55 Following the [employer] Food Guide: Care Instructions Not available 04/22/2025 15:41:55 exercise program : getting started Not available 04/22/2025 15:41:55 Reason for Referral Pelvic Floor Therapy Referra l for Uterine prolapse Referring Physician: Vianney Mills [employer], Encounter Date: 06/27/2023 Results Created Date Observation Date Name Description Value Unit Range Abnormal Flag Note LastModifiedBy Organization Detail LastModifiedTime 02/19/20 22 02/18/2022 PAP REFLE X HOLD Pap reflex hold merged to [id number] Not Available [facility] ol [address] [place], [address], 02/19/2022 10:25:47 02/19/20 22 02/19/2022 PAP REFLE X HOLD Pap reflex hold Receiv ed receiv ed Not Available [facility] [address] [place], [address], 02/19/2022 10:31:08 02/19/20 22 02/19/2022 CT/NG chlamydia trachomatis CT neg negati ve normal This repor t is inten ded for us in clini christine monit oring and manag ement of patikip nts. It is not inten ded for use in medic al-le gal appli catio n. Not Available [facility] [address] [place], [address], 02/19/2022 15:20:22 02/19/20 22 02/19/2022 CT/NG neisseria gonorrhoeae GC neg negati ve normal This repor t is inten ded for us in clini christine monit oring and manag ement of patikip nts. It is not inten ded for use in medic al-le gal appli catio n. Not Available [facility] [address] [place], [address], 02/19/2022 15:20:22 02/19/20 22 02/23/2022 THINP REP TIS PAP clinical information: normal Infor matio n not provi ded Not Available [facility] [address] [address] [place], [address], 02/23/2022 18:04:33 02/19/20 22 02/23/2022 THINP REP TIS PAP LMP: normal INFOR MATIO N NOT PROVI DED Not Available [address] [address] [place], [address], 02/23/2022 18:04:33 02/19/20 22 02/23/2022 THINP REP TIS PAP prev. Pap: normal INFOR MATIO N NOT PROVI DED Not Available [facility] [address] [address] [address] , [place], [address], 02/23/2022 18:04:33 02/19/20 22 02/23/2022 THINP REP TIS PAP prev. BX: normal INFOR MATIO N NOT PROVI DED Not Available [address] [address] [place], [address], 02/23/2022 18:04:33 02/19/20 22 02/23/2022 THINP REP TIS PAP source: normal Cervi x Not Available [address] [address] [place], [address], 02/23/2022 18:04:33 02/19/20 22 02/23/2022 THINP REP TIS PAP statement of adequacy: normal Satis facto ry for evalu ation . Endoc ervic al/tr ansfo rmati on zone compo nent prese nt. Age and/o r menst rual statu s not provi ded Not Available [facility] [address] [place], [address], 02/23/2022 18:04:33 02/19/20 22 02/23/2022 THINP REP TIS PAP interpretati on/result: normal Negat bonnie for intra epith elial lesio n or malig rakel . Not Available [address] [address] [place], [address], 02/23/2022 18:04:33 02/19/20 22 02/23/2022 THINP REP TIS PAP comment: normal This Pap test has been evalu ated with compu taylor techn ology . Not Available [address] [address] [place], [address], 02/23/2022 18:04:33 02/19/20 22 02/23/2022 THINP REP TIS PAP cytotechnolo gist: normal MMW, CT( CP) CT scree james locat ion: [place] [address] [place] [address] Not Available [address] [address] [place], [address], 02/23/2022 18:04:33 02/19/20 22 02/23/2022 THINP REP TIS PAP review cytotechnolo gist: normal MVB, CT( CP) CT Scree james Locat ion: [address] [address] [place] [address] Not Available [address] [address] [place], [address], 02/23/2022 18:04:33 02/19/20 22 02/23/2022 THINP REP [...] clini christine infor matio n. Not Available [facility] [address] [address], [place], [address], 02/23/2022 18:04:33 02/19/20 22 02/18/2022 pregn bhavin test, urine HCG negati ve Not Available [place] [facility], [place], [address], 02/18/2022 11:44:15 04/22/20 25 04/23/2025 STD BLOOD SCREE JAMES ([facility] ) hep BS Ag Non-Re active non-re active normal Not Available [address], [address], 04/23/2025 13:23:44 04/22/20 25 04/23/2025 STD BLOOD SCREE JAMES ([facility] ) hep C Ab Non-Re active non-re active normal Not Available [address], [address], 04/23/2025 13:23:44 04/22/20 25 04/23/2025 STD BLOOD SCREE JAMES ([facility] ) HIV 1/2 Ag/Ab Non-Re active non-re active normal Not Available [address], [address], 04/23/2025 13:23:44 04/22/20 25 04/23/2025 STD BLOOD SCREE JAMES ([facility] ) syphilis Ab Non-Re active non-re active normal Not Available [address], [address], 04/23/2025 13:23:44 04/22/20 25 04/23/2025 CT/NG chlamydia trachomatis CT neg negati ve normal This repor t is inten ded for us in clini christine monit oring and manag ement of patie nts. It is not inten ded for use in medic al-le gal appli catio n. Not Available [facility] [address] [place], [address], 04/23/2025 14:40:17 04/22/2004/23/2025 CT/NG neisseria gonorrhoeae GC neg negati ve normal This repor t is inten ded for us in clini christine monit oring and manag ement of [facility]. It is not inten ded for use in medic al-le gal appli catio n. Not Available [facility] [address] [place], [address], 04/23/2025 14:40:17 04/22/2004/26/2025 THINP REP AUTOM ATED PAP clinical information: normal None given Not Available [address] [address] [place], [address], 04/26/2025 10:31:10 04/22/2004/26/2025 THINP REP AUTOM ATED PAP LMP: normal NONE GIVEN Not Available [facility] [address] [address] [place], [address], 04/26/2025 10:31:10 04/22/20 25 04/26/2025 THINP REP AUTOM ATED PAP prev. Pap: normal NONE GIVEN Not Available [facility] [employer] [facility] [address] [address] [place], [address], 04/26/2025 10:31:10 04/22/2004/26/2025 THINP REP AUTOM ATED PAP prev. BX: normal NONE GIVEN Not Available [facility] [employer] [facility] [address] [place], [address], 04/26/2025 10:31:10 04/22/2004/26/2025 THINP REP AUTOM ATED PAP source: normal Cervi x Not Available [employer] [address] [address] [place], [address], 04/26/2025 10:31:10 04/22/2004/26/2025 THINP REP AUTOM ATED PAP statement of adequacy: normal Satis facto ry for evalu ation . Endoc ervic al/tr ansfo rmati on zone compo nent absen t. Age and/o r menst rual statu s not provi ded Not Available [facility] [address] [place], [address], 04/26/2025 10:31:10 04/22/2004/26/2025 THINP REP AUTOM ATED PAP interpretati on/result: normal Cytol ogy Resul ts: Negat bonnie for intra epith elial lesio n or malig rakel . Not Available [facility] [address] [place], [address], 04/26/2025 10:31:10 04/22/2004/26/2025 THINP REP AUTOM ATED PAP comment: normal This Pap test has been evalu ated with the ThinP rep(R ) Imagi ng Syste m. Not Available [facility] [address] [place], [address], 04/26/2025 10:31:10 04/22/2004/26/2025 THINP REP AUTOM ATED PAP cytotechnolo gist: normal SXS, CT( CP) CT scree james locat ion: [facility] [facility], [place] [address] Labor atory Direc tor: SANDRA Mariano MD, CLIA: [id number] Not Available [address] [address] [place], [address], 04/26/2025 10:31:10 04/22/2004/26/2025 THINP REP AUTOM ATED PAP comment EXPLA NATOR Y NOTE: The [...] clini christine infor matio n. Not Available [facility] [address] [address], [place], [address], 04/26/2025 10:31:10 04/22/20 25 04/22/2025 pregn bhavin test, urine HCG negati ve Not Available [facility] [address] [place], [address], 04/22/2025 14:25:57 Result Notes None recorded. Problems No Known Problems Procedures Surgical History Date Name Laterality Status Provider Name and Address Organization Details Recorded Time 02/19/20 22 Date of Last Pap Smear completed Ita Caballero [facility] [employer] [facility] 01/16/2024 14:41:04 Heart surgery completed Nely Pearson [facility] 06/27/2023 11:11:16 Imaging Results None recorded. Procedure Notes None recorded. Medical Equipment None Reported. Allergies Allergen ID Allergen Name Allergen Category Reaction Reaction Severity Criticality Documentation Date Start Date Code Code System Note Provider Name and Address Organization Details Recorded Time 177228 latex environme nt,medica tion Not available Not available Not available 02/18/2022 05311 91 RxNorm Juli campos, [facility] [employer] [facility] 11:21:55 Medications Name Sig Start Date Stop Date Status Note LastModified by Organization Details LastModified Time Mirena 21 mcg/24 hr (up to 8 years) 52 mg intrauter ine device 02/18 completed Mirena 20 mcg/24 hours (5 yrs) 52 mg Intraute rine Intraute rine Device RxNorm: 635978 Allow Substitu tion: False Refill Denied: No Refill DateOccu rred: 10/10/19 21 Edited by: Cheryl Mehta ) on 11/06/19 21 Stopped by: [facility](Cheryl Zavala ) on Not Available Not Available Not Available Miralax 17 gram/dose oral powder Take 17 g every day by oral route. 04/22 completed Not Available Not Available Not Available lamotrigi ne 150 mg tablet TAKE 1 [...] DAY ON DAY 2 THROUGH DAY 5 04/22 completed Not Available Not Available Not Available [...] mg capsule TAKE 1 CAPSULE BY MOUTH AT BEDTIME 04/22 completed Not Available Not Available Not Available [...] completed Not Available Not Available Not Available lorazepam 0.5 mg tablet 0.5 - 1 TABLET ORALLY ONCE A DAY NEEDED FOR SEVERE ANXIETY active Not Available Not Available No t Available sulfaceta mide sodium 10 % eye drops 02/18 completed Not Available Not Available Not Available baclofen 10 mg tablet 1 TABLET NEEDED ORALLY 3 TIMES A DAY NEEDED MUSCLE PAIN active Not Available Not Available No t Available buspirone 10 mg tablet TAKE 1 TABLET BY MOUTH TWICE DAILY 06/27 completed Not Available Not Available Not Available bupropion HCl 75 mg tablet TAKE 1 TABLET BY MOUTH TWICE A DAY 04/22 completed Not Available Not Available Not Available metoprolo l tartrate 50 mg tablet TAKE 1 TABLET BY MOUTH EVERY DAY 04/22 completed Not Available Not Available Not Available fluoxetin e 10 mg capsule TAKE 1 CAPSULE BY MOUTH EVERY DAY active Not Available Not Available No t Available docusate sodium 100 mg capsule Take 1 capsule every 12 hours by oral route. 04/22 completed Not Available Not Available Not Available ergocalci ferol (vitamin D2) 1,250 mcg (50,000 unit) capsule TAKE 1 CAPSULE BY MOUTH ONCE A WEEK active Not Available Not Available No t Available methylpre dnisolone 4 mg tablets in a dose pack TAKE BY MOUTH DIRECTED ON INSIDE OF PACKAGE active Not Available Not Available No t Available albuterol sulfate HFA 90 mcg/actua tion aerosol inhaler INHALE 2 PUFFS BY MOUTH 4 TIMES DAILY NEEDED FOR SHORTNES S OF BREATH FOR WHEEZING 02/18 completed Not Available Not Available Not Available norethind srinivas (contrace ptive) 0.35 mg tablet TAKE 1 TABLET BY MOUTH ONCE DAILY 04/22 completed Not Available Not Available Not Available metformin ER 500 mg tablet,ex tended release 24 hr 2 TABLET WITH EVENING MEAL ORALLY ONCE A DAY active Not Available Not Available No t Available sertralin e 50 mg tablet TAKE 1/2 (ONE-ADELE F) TABLET BY MOUTH ONCE DAILY FOR 7 DAYS THEN 1 ONCE DAILY FOR 30 DAYS 06/27 completed Not Available Not Available Not Available lamotrigi ne 100 mg tablet TAKE 1 TABLET BY MOUTH EVERY DAY active Not Available Not Available No t Available risperido ne 0.5 mg tablet TAKE 1 TABLET BY MOUTH EVERY DAY active Not Available Not Available No t Available naproxen 500 mg tablet TAKE 1 TABLET BY MOUTH TWICE DAILY NEEDED FOR PAIN active Not Available Not Available No t Available buspirone 15 mg tablet TAKE 1 [...] 15 mg/24 hr Vaginal Ring, Vaginal RxNorm: [id number] Allow Substitu tion: True Refill Denied: No Edited by: Guerita Padilla ) on 10/02/19 Stopped by: Guerita Padilla ) on 10/02/19 Not Available Not Available Not Available escitalop ledy 10 mg tablet TAKE 1 TABLET BY MOUTH ONCE DAILY 06/27 completed Not Available Not Available Not Available cyclobenz aprine 5 mg tablet take 1 tablet (5 mg) by oral route 3 times per day as needed for pain. 12/04 completed cycloben zaprine 5 mg oral tablet RxNorm: 729972 Allow Substitu tion: True Refill Denied: No Edited by: Tanya Pearce ) on 12/05/19 Stopped by: Tanya Pearce ) on 12/05/19 Not Available Not Available Not Available aripipraz ole 5 mg tablet TAKE 1 TABLET BY MOUTH ONCE DAILY 06/27 completed Not Available Not Available Not Available bupropion HCl XL 150 mg 24 hr tablet, extended release TAKE 1 TABLET BY MOUTH EVERY MONRING 04/22 completed Not Available Not Available Not Available metoprolo l tartrate 25 mg tablet take 1 tablet (25 mg) by oral route once daily 06/25 completed metoprol ol tartrate 25 mg oral tablet RxNorm: 433202 Allow Substitu tion: True Refill Denied: No Edited by: Barb Chadwick ) on 06/25/20 Stopped by: Barb Chadwick ) on 06/25/20 Not Available Not Available Not Available nitrofura ntoin monohydra te/macroc rystals 100 mg capsule TAKE 1 CAPSULE BY MOUTH EVERY 12 HOURS FOR 7 DAYS WITH A MEAL OR FOOD 06/15 completed Not Available Not Available Not Available 12/04 completed Allow Substitu tion: False Refill Denied: No Refill DateOccu rred: 10/24/19 Edited by: Tanya Pearce ) on 12/05/19 Stopped by: Tanya Pearce ) on 12/05/19 20 Not Available Not Available Not Available Vyvanse [...] 06/25/20 Not Available Not Available Not Available Enskyce [...] Updated DateTime 01/16/2024 157.48 cm 38 kg/m2 66801.2 1 g 98 [degF] 110/70 mm[Hg] Ita Pabloshila [facility] [employer] [facility] 14:40:04 Date Recorded Body height Body mass index (BMI) Body weight Systolic And Diastolic Provider Name and Address Organization Details Last Updated DateTime 02/18/2022 157.48 cm 36.8 kg/m2 92944.07 g 122/80 mm[Hg] Juli Torrez [facility] [employer] [facility] 02/18/2022 11:19:04 Date Recorded Body height Body mass index (BMI) Body weight Provider Name and Address Organization Details Last Updated DateTime 04/22/2025 157.48 cm 41.6 kg/m2 449311.62 g Ana Kirk [facility] [employer] [facility] 04/22/2025 14:00:10 Date Recorded Body height Body mass index (BMI) Body weight Systolic And Diastolic Provider Name and Address Organization Details Last Updated DateTime 06/25/2022 157.48 cm 36.5 kg/m2 56631.32 g 120/76 mm[Hg] Hannah Torrez [facility] [employer] [facility] 06/25/2022 11:40:45 Date Recorded Body weight Body mass index (BMI) Body height Systolic And Diastolic Provider Name and Address Organization Details Last Updated DateTime 06/27/2023 66376.81 g 38.2 kg/m2 157.48 cm 98/68 mm[Hg] Nely Pearson [facility] [employer] [facility] 06/27/2023 11:20:02 Social History Question Answer Notes LastModified by Organizat ion Details LastModified Time Tobacco Smoking Status Smoker, Current Status Unknown Nely campos [place] [employer] [facility] 06/27/2023 11:11:11 How Many Years Have You Consumed Alcohol? 6 Information not available 06/27/2023 Are You Blind Or Do You Have Difficulty Seeing? No Information not available 06/27/2023 Are You Deaf Or Do You Have Serious Difficulty Hearing? No Information not available 06/27/2023 What Type Of Diet Are You Following? REGULAR Information not available 06/27/2023 How Many Children Do You Have? 1 [email or web address] Information not available 02/18/2022 What Is Your Relationship Status? Single [email or web address] Information not available 02/18/2022 Are You Sexually Active? No [email or web address] Information not available 02/18/2022 At What Age [...] Organization Details LastModified Time Maternal Aunt Malignant neoplasm of colon [email or web address] Not available 04/22 13:53:27 Maternal Grandmother Malignant neoplasm of colon [email or web address] Not available 04/22 13:53:27 Medical History Condition Response Anxiety Disorder Y ADD/ADHD Y Bipolar Disorder Y Gynecological History Statement/Question Response Flow Moderate Date of LMP 04/13/2025 Duration of Flow (days) 3 Most Recent Mammogram Current Control Method None Age at Menarche 13 If Post Menopausal, Age at Menopause Date of Last Colonoscopy Most Recent Bone Density Frequency of Cycle (Q days) 28 Date of Last Pap Smear 02/18/2022 Obstetrics History GPAL:G 1 P 1 0 0 1 Type Value Full Term 1 Living 1 Total 1 Past Encounters Encounter ID Performer Location Encounter Start Date Encounter Closed Date Diagnosis/Indication Diagnosis SNOMED-CT Code Diagnosis ICD10 Code Diagnosis IMO Codes Diagnosis Note [id number] JILLIAN Crowder [facility] [address] [place] [address] 02/18/2022 11:13:58 02/18/2022 11:43:10 Gynecologic examination 99170618 Z01.419 Screening for malignant neoplasm of cervix 129102905 Z12.4 Surveillan ce of contraception 047453872 Z30.40 Discussed all methods of control. Risks/bene fits of each discussed. She is interested in OCP use. Risks/side effects of Lo Loestrin discussed [id number] Lori Xavier DO [facility] [address] [place] [address] 06/25/2022 11:34:01 06/25/2022 12:12:32 Female urinary stress incontinence 00162084 N39.3 JUSTINA - Discussed etiology and general treatment options including behavior modificati on, pelvic floor muscle strengthen ing, procedural options including slings, others - No significan t POP on exam, tissue appears well estrogeniz ed - Pt declined PFPT. Will work on kegel exercises Constipation 88741694 K5 9.00 Pt recently changed diet from [...] needed, or sooner if new symptoms develop. [id number] JILLIAN Roberto [facility] [address] [place] [address] 06/27/2023 10:48:31 06/27/2023 16:46:54 Gynecologic examination 49089100 Z01.411 Pt educated on ACOG and ASCCP guidelines for breast, ovarian, and cervical cancer screenings . Exam WNL. Plan for F/U PRN or for next WWE. Depression screening 171 723250 Z13.31 PHQ9: 9. Pt educated on abnormal scoring, and discussed recommenda tion for continued management with psych and PCP. Pt was recently taken off several medication s for mood and Rx'd Lamictal and Adderall. Pt educated on when to notify HCP/go to ER. Uterine prolapse 9374646 5 N81.4 Pt educated on exam findings c/w complaints of discomfort and needing to manually push back vaginal tissues to have a BM. Pt educated on stool softener use PRN, increasing p.o. water intake, and recommenda tion for referral to pelvic floor therapy. Plan to F/U in office if sx persistent and no relief with PT. Initial pr escription of oral contraception 177890318 Z30.011 Pt educated on all available progestero [...] Family his tory of cancer of colon 394612760 Z80.0 Pt educated on optional early colon cancer screenings 10 years sooner than family member's dx and MyRisk testing. Pt states understand ing and will consider. Pt to notify HCP if would like to proceed with GI referral or hereditary testing. [id number] Carlos Eduardo Lopez DO [facility] [address] [place] [address] 01/16/2024 14:15:34 01/17/2024 11:33:13 Constipation 57546357 K59.00 Additional diagnosis detail: Constipati on, unspecifie d constipati on typeStarte d her on Colace 100 mg to be taken as directed.R efill order sent for MiraLAX 17 grams to be taken as before.Adv ised to keep her stools softer with high fiber diet.Recom mended doing Kegel's exercises to strengthen her vaginal muscles. Family carlyn nning education 206711578 Z30.09 Refill provided for norethindr one 0.35 mg to be taken as directed. [id number] LIEN LE [facility] [address] [place] [address] 04/22/2025 13:52:44 04/23/2025 07:37:46 Gynecologic examination 59429164 Z01.419 -A routine gynecologi christine examinatio n contracept ion discuss, sexual health discussion and STD screening. Reviewed guidelines for cervical cancer and breast cancer screening. The patient will be informed of the results of testing performed today, and further management will be discussed based on the findings.- Education provided on importance of PCP for general health concerns-E ducation provided on importance of routine health screening in prevention of chronic health conditions . Screening for malignant neoplasm of cervix 399987370 Z12.4 ASCCP guidelines reviewed with pt. Pap collected and sent. Further POC pending lab result review. Pt states understand ing of POC. Depression screening 171 348831 Z13.31 PHQ9: 15. Pt educated on abnormal scoring, [facility] of self harm, advised if any thoughts arise to seek care immediatel y. Pt voices understand ing Contracept bonnie use education 63075419 Z30.09 [id number] -- Discussed options including OCPs, NuvaRing, Nexplanon, hormonal and copper IUDs. Discussed risks, efficacy, non contracept bonnie benefits, and side effects of each option, including risk of VTE with hormonal contracept ion and uterine perforatio n, expulsion, infection with IUD.--Disc ussed that contracept ion will not protect against STI's. Encourged Condom use. Discussed the various types of Infections and STIs, related symptoms and the potential consequenc es (including effects on fertility) of STI. Reviewed ways to limit exposure and prevention techniques .--UPT: Negative-- Pt would like to proceed with Slynd. 2 samples provided. Patient will follow up in 2 months for re-evaluat ion. Screening for malignant neoplasm of breast [id number] Z12.39 Pt educated on breast cancer screening guidelines . Denies any concerns with breast at this time. Denies any lumps, bumps, nipple discharge or unusual soreness. Pt states understand ing of POC. Venereal d isease screening [id number] Z11.3 Pt educated on importance of condom use for protection against STD's. Samples collected and sent. Further POC pending lab result review. Pt states understand ing of POC. Health Concerns Section Related Observation LastModified by Organization Detai ls LastModified Time None Recorded Concern Status LastModified by Organization Details LastModified Time None Recorded Advance Directives Directive None Recorded Payers Insurance Date Sequence Insurance Name Policy Number Policy Mai Covered Member ID Mai Member ID Guarantor Name 06/18/2025 1 [facility] - DOS ON OR AFTER 21 (MEDICAID REPLACEMENT - HMO) Tamy Pink [id number] Tamy Pink Notes Date Note Type Note Provider Name and Address Organization Details Recorded Time 022 text/ht ml Vaginal/Vulvar ProblemReported by PatientHPIFor location, patient reportsvagina. For alleviating factors, patient reportsnone. For aggravating factors, patient reportsnone. For associated symptoms, patient reportsno vaginal itching,no vaginal irritation,no vaginal pain, andno vulvar itching/irritation. Annual GYNReported by PatientGenitourinary symptomsFor menstrual cycle, patient reportsnormal menses. For urinary symptoms, patient reportsno hematuriaandno incontinence. For vulva, patient reportsno genital lesion. For vagina, patient reportsnormal vaginal discharge.Breast symptomsFor breast, patient reportsno breast pain,no breast lump, andno nipple discharge.Endocrine symptomsFor sexual complaints, patient reportsno sexual complaints,no pain during intercourse, andnormal libido. For menopausal symptoms, patient reportsno menopausal symptomsandnormal vaginal lubrication.Psychological symptomsFor psychological symptoms, patient reportsno depression,no anxiety, andno pmdd. Tamy is here for her AEX. She is currently not using control. She stopped her contraceptive patch because of the allergy to the adhesive. She requests GC/CT with her pap. JILLIAN Crowder [address] [facility], [place], [address], [employer] IV 02/18/2022 11:45:05 022 text/ht ml Pt is lactose intolerant and recently stopped ingesting dairy. Her BMs have changed from diarrhea to more solid. She is having to vaginal splint to have bowel movement sometimes. Also has urinary incontinence with laugh, sneeze, coughing YANETH JIMENEZ DO [address] [facility], [place], [address], [employer] IV 06/25/2022 12:09:15 023 text/ht ml Annual GYNReported by PatientGenitourinary symptomsFor menstrual cycle, patient reportsnormal menses. For urinary symptoms, patient reportsno hematuriaandno incontinence. For vulva, patient reportsno genital lesion. For vagina, patient reportsnormal vaginal discharge.Breast symptomsFor breast, patient reportsno breast pain,no breast lump, andno nipple discharge.ContraceptionFor current contraception, patient reportswants to discuss contraceptive options.Endocrine symptomsFor menopausal symptoms, patient reportsno menopausal symptoms.Psychological symptomsFor psychological symptoms, patient reportsdepressionandanxiety.ROS as noted in the HPI Pt presents to office for annual well [...] has no personal or family history of WAX PUMPER cancer. Family history of colon cancer, maternal aunt. Pt. thinks it was in her late 40s. Pt declines STD screening via culture and serum testing. Pt has no other concerns. Follows with PCP and psych. JILLIAN Roberto [facility], [place], [address], [facility] 06/27/2023 14:09:22 024 text/ht ml Pelvic ProlapseReported by PatientHPIFor associated symptoms, patient reportsconstipationandincomplete emptying of stool. For location, patient reportsrectum. For quality, patient reportsirritation.She reports difficulty passing stool. She states she [...] tear. She is requesting refill of her BCPs.ROS as noted in the HPI The patient verbally consented to documentation via virtual scribe for this encounter. aCrlos Eduardo Lopez, DO [address] [facility], [place], [address], [facility] - [employer] [facility] 01/16/2024 22:18:42 025 text/ht ml Annual GYNReported by PatientHistoryFor history, patient reportsno gynecologic complaintsandno change in interval history.Genitourinary symptomsFor menstrual cycle, patient reportsnormal menses. For urinary symptoms, patient reportsno hematuriaandno incontinence. For vulva, patient reportsno genital lesion. For vagina, patient reportsnormal vaginal discharge.Breast symptomsFor breast, patient reportsno breast pain,no breast lump, andno nipple discharge.ContraceptionFor current contraception, patient reportssatisfied with current contraceptionandwants to discuss contraceptive options.Endocrine symptomsFor sexual complaints, patient reportsno sexual complaints,no pain during intercourse, andnormal libido. For menopausal symptoms, patient reportsno menopausal symptomsandnormal vaginal lubrication.Psychological symptomsFor psychological symptoms, patient reportsno depression,no anxiety, andno pmdd.ROS as noted in the HPI Tamy is a 29 y/o who presents for WWE. Last pap: 02-18-22 LMP: 04-13-25. Pt is currently using abstinent. She reports that she has not been sexually for the past 5 years. Pt is interested in STI testing today in case she does become sexually active in the future. She reports abdominal pain that occurs during menstrual cycle. She states that the pain is sharp at first then becomes dull for the remainder of cycle. She states that this has occurs the past 2 menstrual cycles. She also report pelvic pain and a lump that she was seen in the ED for yesterday. The ED diagnosed her with a swollen lymph node and pinched nerves. Patient reports that she would like to start control today to help with menstrual symptoms. She states that her last BC interacted with her mood stabilizer, so she stopped it. She is requesting the BC pill. She reports that she has an appointment Tuesday to visit her PCP about swelling to her left leg. She reports low energy and low mood. She denies thoughts of self harm and is on fluoxetine for depression. This was started recently and is managed by [employer]. Pt has no other concerns. DUANE SALOMON, [employer]SEM[employer] GLUER [address] [facility], [place], [address], [facility] [employer] 04/23/2025 06:55:25 OBGyn Episode Ob Episode Information Episode Created Date Number of Fetuses Patient Bloodtype Patient rh Status Prepregnancy Weight lbs Domestic Partner Domestic Partner Phone Father Name Synthetic Cloth Binding Cutter Status 10/23/19 22 1 CLOSED Fetus Data First Name Last Name Admitted to NICU Weight (g) Sex Living Outcome Pediatric Complications Fetus ID Race Codes Race Delivery Type 3572.03 7 [id number] Alli Calculation Initial Alli Date Initial Exam [...]
== END 2025-06-24 10:28 | disposition home or self-care (01) ==
LOC: CHSCARD 10:28
PROVIDERS: PCP Nurse Practitioner; Visit Provider Internal Medicine Cardiovascular Disease
DX: R07.9 Chest pain, unspecified (principal)
CPT/HCPCS: 93017

== ENCOUNTER 2025-07-02 08:44 | Emergency (ER) | payer OTHER, SELFPAY ==
--- NOTE | ~2025-07-02 | XR_ITS ---
Examination: XR chest 2V Clinical History: sob Comparison: 04/27/2025 Technique: PA and Lateral Findings: Cardiomediastinal silhouette normal size and configuration. Lungs clear. No acute bony abnormality. IMPRESSION: 1. No acute cardiopulmonary findings. Reviewed, dictated and finalized at location [facility]
[2025-07-02 08:45] VITALS: BP 105/77; PULSE 88; RESP 20; TEMP 36.6; O2SAT 96; O2SAT 97
--- NOTE | 2025-07-02 08:50 | ED.URI ---
HPI - URI/Sore Throat General Chief Complaint: Shortness of Breath/Dyspnea Stated Complaint: cough/shortness of breath Time Seen by Provider: 07/02/25 08:49 Source: patient Mode of arrival: ambulatory Limitations: no limitations History of Present Illness HPI Narrative: Patient is a 30-year-old female with cough and chest congestion for the past week and a half. She has been having shortness of breath. Her son had a similar illness that is resolving at this time. Chest pain generalized when she coughs. MD elicited complaint: cough, nasal congestion and other (Chest congestion and short of breath) Pertinent past history: other (None) Onset (ago): week(s) (A week and a half) Consistency: constant Severity: moderate Pain scale (0-10): 1 Description of mucous: clear Able to tolerate fluids by mouth: Yes Exacerbating factors: exertion and speaking Relieving factors: nothing Context: sick contacts Associated symptoms: shortness of breath Treatments prior to arrival: none Related Data Home Medications ?Medication ?Instructions ?Recorded ?Confirmed ?Last Taken ?Type lamotrigine 100 mg tablet 100 mg PO DAILY 01/14/24 05/31/25 Unknown History drospirenone (contraceptive) 4 mg 4 mg PO DAILY 05/06/25 05/31/25 Unknown History (28) tablet (Slynd) Allergies Allergy/AdvReac Type Severity Reaction Status Date / Time amoxicillin Allergy Unknown Verified 07/02/25 08:58 Review of Systems Review of Systems: All systems reviewed & are unremarkable except as noted in HPI and below Constitutional: Constitutional: Reports no additional constitutional complaints Eyes: Eyes: Reports no additional eye complaints ENT: Reports system reviewed and no additional complaints, except as documented Cardiovascular: Cardiovascular: Reports no additional cardiovascular complaints Respiratory: Respiratory: Reports no additional respiratory complaints Gastrointestinal: Gastrointestinal: Reports no additional gastrointestinal complaints Genitourinary: Genitourinary: Reports no additional female genitourinary complaints Musculoskeletal: Musculoskeletal: Reports no additional musculoskeletal complaints Integumentary/Breasts: Skin/Breast: Reports system reviewed and no additional complaints, except as docu Neurologic: Reports system reviewed and no additional complaints, except as documented Psychiatric: Psychiatric: Reports no additional psychiatric complaints Endocrine: Endocrine: Reports no additional endocrine complaints Hematologic/Lymphatic: Hematologic/Lymphatic: Reports no additional hematologic/lymphatic complaints Allergic/Immunologic: Allergic/Immunologic: Reports no additional allergic/immunologic complaints [facility] Past Medical History Medical History Pre-diabetes Morbid obesity Dysmenorrhea Tobacco use Obesity Bilateral lower abdominal pain Chronic diarrhea Hematochezia Metatarsal bone fracture Ear infection SVT (supraventricular tachycardia) Surgical History Surgical History History of tympanostomy History of hand surgery LT History of dental surgery H/O cardiac radiofrequency ablation Hx of tonsillectomy Family History Family History Father No problems noted. Mother Diabetes mellitus Sibling No problems noted. Social History Social History Smoking status: Former smoker Tobacco type: e-cigarettes/vaping Second hand tobacco smoke exposure: Yes Smoking end date: 08/08/18 Alcohol intake: never Alcohol use details: stop due to Substance use: never Substance use type: does not use Do You Feel Safe in your Home?: Yes Lack of Transportation: No Lack of Food: Never True Current Housing: I Have Housing Concerned About Future Housing: No Difficulty Paying Gas/Electric Bills: No Difficulty Paying for Meds: No Currently Unemployed: No Education: Trade/Vocational Certificate Living arrangements: with family Occupation/Education: unemployed Gender identity (if verbalized by the patient): Female Sexual Orientation (if Verbalized by the Patient): Straight or Heterosexual Spiritual care concerns: No Exam Const: General: alert Nutritional Appearance: well nourished Orientation/consciousness: patient oriented x3 Limitations: no limitations Other: Patient looks it tired and ill but not severely HENMT: Head: normal to inspection Ears: external ears normal Face/Nose/Sinus: Normal external nose present Eyes: Conjunctivae: conjunctivae normal Pupils: Equal, round and reactive pupils present EOM: EOMs intact bilaterally Neck: Neck: normal visual inspection Chest: Chest palpation & inspection: normal inspection of the chest Resp: Effort & Inspection: abnormal respiratory effort, labored, no retractions, tachypneic and no use of accessory muscles Auscultation: not clear to auscultation bilaterally, no crackles, rales, rhonchi, no wheezes, breath sounds present and diminished lung sounds Other: Pursed lips Cardio: Rate: regular rate Rhythm: regular rhythm Heart sounds: no murmurs GI: Inspection: non-distended GI Palp: Yes Soft to palpation and No Tenderness to palpation present (GI) Auscultation: normal bowel sounds : General: Yes bladder normal to palpation Back/Spine/Pelvis: Back: no CVA tenderness Skin: General skin exam: normal color Rashes: no rashes Wounds: no wounds Neuro: General: patient oriented x3, moves all extremities and no meningeal signs Extrem: General: normal to inspection, no clubbing, cyanosis or edema and no pedal edema Psych: Mental Status: mental status grossly normal Affect: normal affect Attitude: cooperative Course Vital Signs Vital signs: Vital Signs Pulse Oximetry 96 07/02/25 08:45 Oxygen Delivery Room Air 07/02/25 08:45 Pulse Oximetry 96 07/02/25 08:45 Oxygen Delivery Room Air 07/02/25 08:45 MDM - URI/Sore Throat MDM Narrative Medical decision making narrative: Patient is a 30-year-old female with chest pain and shortness of breath and chest congestion for the past week and half. We will do COVID swab and chest x-ray. Patient has baseline low BP. Lab Data Attestation: I reviewed the patient's lab results. Labs: Lab Results 07/02/25 Range/Units 08:53 Influenza A (RT-PCR) Negative (Negative) Influenza B (RT-PCR) Negative (Negative) RSV (RT-PCR) Negative (Negative) SARS-CoV-2 RNA (RT-PCR) Negative (Negative) Imaging Data Attestation: I personally reviewed and interpreted this imaging study as follows: Radiologist's impression: Chest x-ray is negative for acute process Discharge Plan Discharge Clinical Impression: Acute bacterial bronchitis Patient Disposition: Home Condition: Stable Instructions: Antibiotic Form, Acute Bronchitis (ED) Patient Language: Korean Prescriptions: New prednisone 20 mg tablet 40 mg PO DAILY 4 Days Qty: 8 0RF azithromycin 250 mg tablet See Rx Instructions .ROUTE .COMPLEX Qty: 6 0RF Rx Instructions: For 250 mg dose pack: take 500 mg today (day 1), then 250 mg for 4 days (days 2-5) albuterol sulfate [Ventolin HFA] 90 mcg/actuation HFA aerosol inhaler 2 inh inhalation QID PRN (Reason: shortness of breath or wheezing) Qty: 6.7 0RF No Action lamotrigine 100 mg tablet 100 mg PO DAILY Slynd 4 mg (28) tablet 4 mg PO DAILY Follow-up/Referrals: Gracie Hubbard APRN [Primary Care Provider, Internal Medicine] Time of Disposition: 09:47
--- OUTSIDE RECORDS SUMMARY | 2025-07-02 09:09 | XMS_ITS | Clinical Summary ---
Author Organization [facility] Address [address] [place] [address] Care Team Providers Care Upfitter Name Role Phone Martnelda Marlena Wetzel APRN-CATERING MANAGER Primary Care Provider Source Comments [facility],non-owned Affiliates and Associated Physician Practices is amultiple site organization consisting of ambulatory clinics and hospital sitesin [place], [place], [place] and [place]. This disclosure is being madepursuant to the Care Everywhere program and may not contain all information available regarding this patient. Last updated 18.[facility] Allergies No known active allergies Medications * [...] Reasons: Manic-Depression 30 tablet 09/12/2024 2:56 PM WATER FILTERER 5 Active QUEtiapine (SEROquel) 100 MG tabletIndicatio ns:Depressive Phase Bipolar Mood Disorder,Genera lized Anxiety Disorder,Insomn ia Take 1 (one) tablet by mouth at bedtime Reasons: Depressive Phase of Manic-Depression , Generalized Anxiety Disorder, Trouble Sleeping 30 tablet 09/12/2024 2:56 PM WATER FILTERER 5 Active metoprolol succinate XL 24hr (Toprol XL) 25 MG tabletIndicatio ns:Hypertension Take 1 (one) tablet by mouth once daily Reasons: High Blood Pressure 30 tablet 09/12/2024 2:56 PM WATER FILTERER 5 Active Active Problems Problem Noted Date Diagnosed Date Bipolar disorder, current ep isode depressed, severe, without psychotic features 09/08/2024 Family History Medical History Relation Name Comments AL<65(female) Maternal Aunt Diabetes - Type 2 Other [...] Recorded Patient Health Questionnaire-2 Score 6 09/08/2024 [facility] [place] [facility] - Occupational Stress [...] any time in the past 12 m [place], were you homeless or living in a fpc (including now)? No 09/08/2024 Comments Unknown Sex and Gender Information Value Date Recorded Sex Assigned at Not on file Legal Sex Female 5:42 AM WATER FILTERER Gender Identity Not on file Sexual Orientation Not on file Last Filed Vital Signs Vital Sign Reading Time Taken Comments Blood Pressure 116/74 09/12/2024 8:03 AM WATER FILTERER Pulse 81 09/12/2024 8:03 AM WATER FILTERER Temperature 36.8 C (98.2 F) 09/12/2024 8:03 AM WATER FILTERER Respiratory Rate 16 09/12/2024 8:03 AM WATER FILTERER Oxygen Saturation 100% 09/12/2024 8:03 AM WATER FILTERER Inhaled Oxygen Concentration - - Weight 93.6 kg (206 lb 6.4 oz) 09/08/2024 4:33 A M WATER FILTERER Height 157.5 cm (5' 2) 09/08/2024 4:33 AM WATER FILTERER Body Mass Index 37.75 09/08/2024 4:33 AM WATER FILTERER Plan of Treatment Health Maintenance Due Date Last Done Comments HIV SCREENING 2011 HEPATITIS C SCREENING 04/29/2014 DTAP/TDAP/TD VACCINES (1 - Tdap) 2015 HEPATITIS B VACCINE (1 of 3 - 19+ 3-dose series) 2015 PAP SMEAR 2017 HPV VACCINE (1 - 3-dose SCDM series) 2023 COVID-19 VACCINE ( - 2024-2 6 season) 2025 INFLUENZA VACCINE (#1) 2025 ZOSTER [...] patient's age to complete this topic Insurance [facility] Advance Directives * Full Code (Latest Code Status on File) Date Activated Date Inactivated Comments 09/08/2024 4:31 AM 09/12/2024 7:17 PM Care Teams Upfitter Relationship Specialty Start Date End Date Marlena Lyn, HOSPICE AIDE-CATERING MANAGER PCP - General 03/30/19
--- OUTSIDE RECORDS SUMMARY | 2025-07-02 09:09 | XMS_ITS | Clinical Summary ---
Author Organization [facility] Address [address] [place] [address] Phone Care Team Providers Care Administrative Library Assistant Name Role Phone Maria Fernanda De La Cruz APRN, CNP Primary Care Provider Medications risperiDONE (risperDAL) 0.5 MG Tablet Take 0.5 mg by mouth 2 times daily. Active lamoTRIgine (LaMICtal) 100 MG Tablet Take 100 mg by mouth daily. 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 01/09/2025 Family History Relation Name Status Comments Mother [...] Influenza Immunization (#1) 2025 SARS-COV-2 Immunization ( - season) 2025 Respiratory Syncytial Virus (RSV) Immunization (Adult) (1 - 1-dose 75+ series) 2071 Hepatitis B Immunization Completed 997, 1996, 1996 TdaP Immunization Completed 01/20/2007 Varicella Immunization Completed 7, 03/03/1998 Human Papillomavirus (HPV) Immunization Completed 08/02/2007, 03/28/2007, 01/20/2007 Meningococcal Immunization (ACWY) Completed 03/09/2013, 03/05/2011 Pneumococcal Immunization Combined Aged Out No longer eligible b ased on patient's age to complete this topic Rotavirus Immunization Aged Out No lo nger eligible based on patient's age to complete this topic Insurance MEDICAID [employer] Care Teams Administrative Library Assistant Relationship Specialty Start Date End Date Maria Fernanda De La Cruz APRN, LOOM SETTER [employer]DRIN[employer] [address] [place] [address] PCP - General Advanced Practice Nurse 10/25/24
[2025-07-02 09:40] LABS: Influenza A QL RT-PCR Negative (Negative); Influenza B QL RT-PCR Negative (Negative); RSV RNA, RT-PCR Negative (Negative); SARS-CoV-2 RNA PCR Negative (Negative)
--- NOTE | 2025-07-02 09:53 | PC.NURSE ---
MD Davi made aware of BP 98/69. MD Davi states pt is ok to be discharged with this BP.
[2025-07-02 09:54] VITALS: BP 98/69; PULSE 74; RESP 16; O2SAT 97
--- OUTSIDE RECORDS SUMMARY | 2025-07-02 10:46 | XMS_ITS | Clinical Summary ---
Author Organization [facility] Address [address] [place] [address] Phone Care Team Providers Care Movable Bulkhead Installer Name Role Phone Maria Fernanda De La [...] Insurance MEDICAID [employer] Care Teams Movable Bulkhead Installer Relationship Specialty Start Date End Date Maria Fernanda De La Cruz APRN, FIELD MECHANIC [address] [place] [address] PCP - General Advanced Practice Nurse 10/25/24
--- OUTSIDE RECORDS SUMMARY | 2025-07-02 10:46 | XMS_ITS | Continuity of Care Document ---
Author Organization [email or web address] , [facility] Address [address] [place] [address] Assessment No assessment recorded. Plan of Treatment Reminders Order Date Submit Date Provider Last Modified By Organization Details Last Modified Time Details Appointments None recorded. Lab test, urine 2024 025 [facility], [facility] [place], [address], 5 15:41:55 unlisted lab - STD screening ([facility]) 2024 025 [facility], [address] [place], [address], 5 13:23:45 CT + NG DNA, PCR, unspecified specimen 2024 025 [facility], [address] [place], [address], 5 14:40:17 unlisted lab - Pap reflex hold 2024 025 [email or web address], [address] [place], [address], 5 14:15:51 pap, LB 2024 025 [facility], [address] [facility], [place], [address], 5 10:31:10 Referral None recorded. Procedures None recorded. Surgeries None recorded. Imaging None recorded. Medication Orders None recorded. Patient TargetsNo targets recorded. Patient Instructions Encounter Date Encounter Id Patient Instructions Last Modified By Organization Details Last Modified Time 04/22/2025 [id number] A healthy lifestyle: care instructions Not available 04/22/2025 15:41:55 A healthy lifestyle: care instructions Not available 04/22/2025 15:41:55 substance use disorder: care instructions Not available 04/22/2025 15:41:55 tobacco cessation Not availabl e 04/22/2025 15:41:55 Following the [employer] Guide: Care Instructions Not available 04/22/2025 15:41:55 exercise program : getting started Not available 04/22/2025 15:41:55 Reason for Referral None Reported. Results Created Date Observation Date Name Description Value Unit Range Abnormal Flag Note LastModifiedBy Organization Detail LastModifiedTime 04/22/2004/23/2025 STD BLOOD SCREE JAMES ([facility] ) hep BS Ag Non-Re active non-re active normal Not Available [facility] [address] [place] [address], [address], 04/23/2025 13:23:44 04/22/2004/23/2025 STD BLOOD SCREE JAMES ([facility] ) hep C Ab Non-Re active non-re active normal Not Available [facility] [address] [place] [address], [address], 04/23/2025 13:23:44 04/22/2004/23/2025 STD BLOOD SCREE JAMES ([facility] ) HIV 1/2 Ag/Ab Non-Re active non-re active normal Not Available [facility] [address] [place] [address], [address], 04/23/2025 13:23:44 04/22/20 25 04/23/2025 STD BLOOD SCREE JAMES ([facility] ) syphilis Ab Non-Re active non-re active normal Not Available [facility] [address] [place] [address], [address], 04/23/2025 13:23:44 04/22/20 25 04/23/2025 CT/NG chlamydia trachomatis CT neg negati ve normal This repor t is inten ded for us in clini christine monit oring and manag ement of patie nts. It is not inten ded for use in medic al-le gal appli catio n. Not Available [facility] [address] [place], [address], 04/23/2025 14:40:17 04/22/2004/23/2025 CT/NG neisseria gonorrhoeae GC neg negati ve normal This repor t is inten ded for us in clini christine monit oring and manag ement of patie nts. It is not inten ded for use in medic al-le gal appli catio n. Not Available [facility] [address] [place], [address], 04/23/2025 14:40:17 04/22/2004/26/2025 THINP REP AUTOM ATED PAP clinical information: normal None given Not Available [facility] [address] [place], [address], 04/26/2025 10:31:10 04/22/20 25 04/26/2025 THINP REP AUTOM ATED PAP LMP: normal NONE GIVEN Not Available [facility] [address] [place], [address], 04/26/2025 10:31:10 04/22/20 25 04/26/2025 THINP REP AUTOM ATED PAP prev. Pap: normal NONE GIVEN Not Available [facility] [address] [place], [address], 04/26/2025 10:31:10 04/22/20 25 04/26/2025 THINP REP AUTOM ATED PAP prev. BX: normal NONE GIVEN Not Available [facility] [address] [place], [address], 04/26/2025 10:31:10 09/04/26/2025 THINP REP AUTOM ATED PAP source: normal Cervi x Not Available [facility] [place] [address] [place], [address], 04/26/2025 10:31:10 04/22/2004/26/2025 THINP REP AUTOM ATED PAP statement of adequacy: normal Satis facto ry for evalu ation . Endoc ervic al/tr ansfo rmati on zone compo nent absen t. Age and/o r menst rual statu s not provi ded Not Available [facility] [address] [place], [address], 04/26/2025 10:31:10 04/22/2004/26/2025 THINP REP AUTOM ATED PAP interpretati on/result: normal Cytol ogy Resul ts: Negat bonnie for intra epith elial lesio n or malig rakel . Not Available [facility] [address] [address], [place], [address], 04/26/2025 10:31:10 04/22/2004/26/2025 THINP REP AUTOM ATED PAP comment: normal This Pap test has been evalu ated with the ThinP rep(R ) Imagi ng Syste m. Not Available [facility] [address], [place], [address], 04/26/2025 10:31:10 04/22/2004/26/2025 THINP REP AUTOM ATED PAP cytotechnolo gist: normal SXS, CT( CP) CT scree james locat ion: [facility] is, [address], [place] [address] Labor atory Direc tor: SANDRA Mariano MD, CLIA: [id number] Not Available [place] [address] [place], [address], 04/26/2025 10:31:10 04/22/2004/26/2025 THINP REP AUTOM ATED [...] clini christine infor matio n. Not Available [facility] [address] [address] , [place], [address], 04/26/2025 10:31:10 04/22/20 25 04/22/2025 pregn bhavin test, urine HCG negati ve Not Available [facility] [address] [place], [address], 04/22/2025 14:25:57 Result Notes None recorded. Problems No Known Problems Procedures Surgical History Date Name Laterality Status Provider Name and Address Organization Details Recorded Time 02/19/20 Date of Last Pap Smear completed Ita Caballero [facility] [email or web address] IV 01/16/2024 14:41:04 Heart surgery completed Nely Pearson [facility] [email or web address] IV 06/27/2023 11:11:16 Imaging Results None recorded. Procedure Notes None recorded. Medical Equipment None Reported. Allergies Allergen ID Allergen Name Allergen Category Reaction Reaction Severity Criticality Documentation Date Start Date Code Code System Note Provider Name and Address Organization Details Recorded Time 524083 latex environme nt,medica tion Not available Not available Not available 02/18/2022 36572 91 RxNorm Juli campos, [place] [facility] 11:21:55 Medications Name Sig Start Date Stop Date Status Note LastModified by Organization Details LastModified Time Mirena 21 mcg/24 hr (up to 8 years) 52 mg intrauter ine device 02/18 completed Mirena 20 mcg/24 hours (5 yrs) 52 mg Intraute rine Intraute rine Device RxNorm: 738564 Allow Substitu tion: False Refill Denied: No Refill DateOccu rred: 10/10/19 21 Edited by: [email or web address](Cheryl Zavala ) on 11/06/19 21 Stopped by: [...] 15 mg/24 hr Vaginal Ring, Vaginal RxNorm: 5967708 Allow Substitu tion: True Refill Denied: No [...] cycloben zaprine 5 mg oral tablet RxNorm: 856216 Allow Substitu tion: True Refill Denied: No [...] ol tartrate 25 mg oral tablet RxNorm: 468954 Allow Substitu tion: True Refill Denied: No Edited by: Barb Chadwick ) on 06/25/20 Stopped by: Barb Chadwick ) on 06/25/20 20 Not Available Not Available Not Available nitrofura [...] NOW COVID-19 Test Kit TEST DIRECTED TODAY 11/18 /2022 completed Not Available Not Available Not Available [...] Updated DateTime 04/22/2025 157.48 cm 41.6 kg/m2 230674.62 g Ana Kirk [employer] IV 04/22/2025 14:00:10 Social History Question Answer Notes LastModified by Organizat ion Details LastModified Time Tobacco Smoking Status Smoker, Current Status Unknown Nely campos, [employer] IV 06/27/2023 11:11:11 How Many Years Have You Consumed Alcohol? 6 Information not available 06/27/2023 Are You Blind Or Do You Have Difficulty Seeing? No Information not available 06/27/2023 Are You Deaf Or Do You Have Serious Difficulty Hearing? No Information not available 06/27/2023 What Type Of Diet Are You Following? REGULAR Information not available 06/27/2023 How Many Children Do You Have? 1 [email or web address] Information not available 02/18/2022 What Is Your Relationship Status? Single [email or web address] Information not available 02/18/2022 Are You Sexually Active? No [email or web address] Information not available 02/18/2022 At What Age [...] ICD10 Code Diagnosis IMO Codes Diagnosis Note [id number] LIEN LE [facility] [address] [place] [address] 04/22/2025 13:52:44 04/23/2025 07:37:46 Gynecologic examination 27416583 Z01.419 -A routine gynecologi christine examinatio n [...] . Screening for malignant neoplasm of cervix 894066563 Z12.4 ASCCP guidelines reviewed with pt. Pap collected and sent. Further POC pending lab result review. Pt states understand ing of POC. Depression screening 171 318802 Z13.31 PHQ9: 15. Pt educated on abnormal scoring, and managed by: [facility] es any thoughts of self harm, advised if any thoughts arise to seek care immediatel y. Pt voices understand ing Contracept bonnie use education 25931949 Z30.09 654674 -- Discussed options including OCPs, NuvaRing, Nexplanon, [...] ion. Screening for malignant neoplasm of breast 876993530 Z12.39 Pt educated on breast cancer screening guidelines . Denies any concerns with breast at this time. Denies any lumps, bumps, nipple discharge or unusual soreness. Pt states understand ing of POC. Venereal d isease screening 555441351 Z11.3 Pt educated on importance of condom use for protection against STD's. Samples collected and sent. Further POC pending lab result review. Pt states understand ing of POC. Health Concerns Section Related Observation LastModified by Organization Detai ls LastModified Time None Recorded Concern Status LastModified by Organization Details LastModified Time None Recorded Payers Encounter Date Sequence Insurance Name Policy Number Policy Mai Covered Member ID Mai Member ID Guarantor Name 04/22/2025 1 [facility] ON OR AFTER 02/05/21 (MEDICAID REPLACEMENT - HMO) Tamy Pink [id number] Tamy Pink Notes Date Note Type Note Provider Name and Address Organization Details Recorded Time 5 text/html Annual GYNReported by PatientHistoryFor history, patient reportsno [...] She reports that she has an appointment Alonso to visit her PCP about swelling to her left leg. She reports low energy and low mood. She denies thoughts of self harm and is on fluoxetine for depression. This was started recently and is managed by [employer] Pt has no other concerns. DUANE SALOMON, WHEEL ALIGNMENT MECHANIC [address] [facility], [place], [address], [facility] IV 04/23/2025 06:55:25 OBGyn Episode No OBEpisode recorded.
--- OUTSIDE RECORDS SUMMARY | 2025-07-02 10:46 | XMS_ITS | Clinical Summary ---
Author Organization [facility] Address [address] [facility] [place] [address] Care Team Providers Care Industrial Millwright Name Role Phone Martnelda Marlena Wetzel APRN-STRIKE ON MACHINE OPERATOR Primary Care Provider Source Comments [facility],non-owned Affiliates and Associated Physician Practices is amultiple site organization consisting of ambulatory clinics and hospital sitesin [place], [place], [place] and [place]. This disclosure is being madepursuant to the Care Everywhere program and may not contain all information available regarding this patient. Last updated 18.[facility] Allergies No known active allergies Medications * [...] Reasons: Manic-Depression 30 tablet 09/12/2024 2:56 PM DIETARY AIDE TEACHER 5 Active QUEtiapine (SEROquel) 100 MG tabletIndicatio ns:Depressive Phase Bipolar Mood Disorder,Genera lized Anxiety Disorder,Insomn ia Take 1 (one) tablet by mouth at bedtime Reasons: Depressive Phase of Manic-Depression , Generalized Anxiety Disorder, Trouble Sleeping 30 tablet 09/12/2024 2:56 PM DIETARY AIDE TEACHER 5 Active metoprolol succinate XL 24hr (Toprol XL) 25 MG tabletIndicatio ns:Hypertension Take 1 (one) tablet by mouth once daily Reasons: High Blood Pressure 30 tablet 09/12/2024 2:56 PM DIETARY AIDE TEACHER 5 Active Active Problems Problem Noted Date Diagnosed Date Bipolar disorder, current ep isode depressed, severe, without psychotic features 09/08/2024 Family History Medical History Relation Name Comments DC<65(female) Maternal Aunt Diabetes - Type 2 Other [...] Recorded Patient Health Questionnaire-2 Score 6 09/08/2024 [facility] Occupat ional Health - Occupational Stress [...] any time in the past 12 m [facility], were you homeless or living in a senior living (including now)? No 09/08/2024 Comments Unknown Sex and Gender Information Value Date Recorded Sex Assigned at Not on file Legal Sex Female 5:42 AM DIETARY AIDE TEACHER Gender Identity Not on file Sexual Orientation Not on file Last Filed Vital Signs Vital Sign Reading Time Taken Comments Blood Pressure 116/74 09/12/2024 8:03 AM DIETARY AIDE TEACHER Pulse 81 09/12/2024 8:03 AM DIETARY AIDE TEACHER Temperature 36.8 C (98.2 F) 09/12/2024 8:03 AM DIETARY AIDE TEACHER Respiratory Rate 16 09/12/2024 8:03 AM DIETARY AIDE TEACHER Oxygen Saturation 100% 09/12/2024 8:03 AM DIETARY AIDE TEACHER Inhaled Oxygen Concentration - - Weight 93.6 kg (206 lb 6.4 oz) 09/08/2024 4:33 A M DIETARY AIDE TEACHER Height 157.5 cm (5' 2) 09/08/2024 4:33 AM DIETARY AIDE TEACHER Body Mass Index 37.75 09/08/2024 4:33 AM DIETARY AIDE TEACHER Plan of Treatment Health Maintenance Due Date [...] patient's age to complete this topic Insurance [facility] Advance Directives * Full Code (Latest Code Status on File) Date Activated Date Inactivated Comments 09/08/2024 4:31 AM 09/12/2024 7:17 PM Care Teams Industrial Millwright Relationship Specialty Start Date End Date Marlena Lyn, CUSTOMER COMPLAINT CLERK-STRIKE ON MACHINE OPERATOR PCP - General 03/30/19
--- OUTSIDE RECORDS SUMMARY | 2025-07-02 10:46 | XMS_ITS | Data Portability ---
Author Organization [employer] , [facility] Address [address] [place] [address] Assessment No assessment recorded. Plan of Treatment Reminders Order Date Submit Date Provider Last Modified By Organization Details Last Modified Time Details Appointments None recorded. Lab test, urine 2024 025 [facility], [address] [place], [address], 5 15:41:55 unlisted lab - STD screening ([facility]) 2024 025 Mr. Number Daryn, [address] [place], [address], 5 13:23:45 CT + NG DNA, PCR, unspecified specimen 2024 025 Mr. Number Daryn, [address] [place], [address], 5 14:40:17 unlisted lab - Pap reflex hold 2024 025 [facility] Daryn, [address] [place], [address], 5 14:15:51 pap, LB 2024 025 [facility], [address] [facility], [place], [address], 5 10:31:10 test, urine 2021 022 0 [facility], [address], [place], [address], 11:44:49 CT + NG DNA, PCR, unspecified specimen 2021 [facility] Daryn, [address] [place], [address], 10:31:08 unlisted lab - Pap reflex hold 2021 [facility] Daryn, [address] [place], [address], 10:25:47 pap, LB 2021 [facility], [address] [place], [address], 18:04:33 Referral pelvic floor therapy referral 2022 023 [facility], [address] [place], [address], 14:47:07 Procedures None recorded. Surgeries None recorded. Imaging None recorded. Medication Orders norethindro ne (contracept bonnie) 0.35 mg tablet 2022 023 [email or web address] 1 [facility], [address] [place], [address], 5 14:00:44 Lo Loestrin Fe 1 mg-10 mcg (24)/10 mcg (2) tablet 2021 022 [facility], [address] [place], [address], 17:42:47 Patient TargetsNo targets recorded. Patient Instructions Encounter Date Encounter Id Patient Instructions Last Modified By Organization Details Last Modified Time 02/18/2022 [id number] A healthy lifestyle: care instructions [email or web address] Not available 02/18/2022 11:43:05 control counseling [email or web address] Not available 02/18/2022 11:43:05 exposure to sexually transmitted infections: care instructions [email or web address] Not available 02/18/2022 11:43:05 - Refrain from [...] ureaplasma/mycopla sma testing and treatment, if indicated. [email or web address] Not available 02/17/2022 14:13:17 06/27/2023 [id number] learning about control fely Not available 06/27/2023 13:46:32 04/22/2025 [id number] A healthy lifestyle: care instructions Not available [...] for Uterine prolapse Referring Physician: Vianney Mills SAMPLE SAWYER, Encounter Date: 06/27/2023 Results Created Date Observation Date Name Description Value Unit Range Abnormal Flag Note LastModifiedBy Organization Detail LastModifiedTime 02/19/20 22 02/18/2022 PAP REFLE X HOLD Pap reflex hold merged to [id number] Not Available [facility] ol [address] [place], [address], 02/19/2022 10:25:47 02/19/20 22 02/19/2022 PAP REFLE X HOLD Pap reflex hold Receiv ed receiv ed Not Available [facility] Daryn [address] [place], [address], 02/19/2022 10:31:08 02/19/20 22 02/19/2022 CT/NG chlamydia trachomatis CT neg negati ve normal This repor t is inten ded for us in clini christine monit oring and manag ement of patikip nts. It is not inten ded for use in medic al-le gal appli catio n. Not Available [facility] Daryn [address] [place], [address], 02/19/2022 15:20:22 02/19/20 22 02/19/2022 CT/NG neisseria gonorrhoeae GC neg negati ve normal This repor t is inten ded for us in clini christine monit oring and manag ement of patikip nts. It is not inten ded for use in medic al-le gal appli catio n. Not Available [facility] [address] [place], [address], 02/19/2022 15:20:22 02/19/20 22 02/23/2022 THINP REP TIS PAP clinical information: normal Infor matio n not provi ded Not Available [facility] [address] [address] [place], [address], 02/23/2022 18:04:33 02/19/20 22 02/23/2022 THINP REP TIS PAP LMP: normal INFOR MATIO N NOT PROVI DED Not Available [address] [address] [place], [address], 02/23/2022 18:04:33 02/19/20 22 02/23/2022 THINP REP TIS PAP prev. Pap: normal INFOR MATIO N NOT PROVI DED Not Available [facility] [address] [address] [address] , [place], [address], 02/23/2022 18:04:33 02/19/20 22 02/23/2022 THINP REP TIS PAP prev. BX: normal INFOR MATIO N NOT PROVI DED Not Available [address] [address] [place], [address], 02/23/2022 18:04:33 02/19/20 22 02/23/2022 THINP REP TIS PAP source: normal Cervi x Not Available [address] [address] [place], [address], 02/23/2022 18:04:33 02/19/20 22 02/23/2022 THINP REP TIS PAP statement of adequacy: normal Satis facto ry for evalu ation . Endoc ervic al/tr ansfo rmati on zone compo nent prese nt. Age and/o r menst rual statu s not provi ded Not Available [facility] [address] [place], [address], 02/23/2022 18:04:33 02/19/20 22 02/23/2022 THINP REP TIS PAP interpretati on/result: normal Negat bonnie for intra epith elial lesio n or malig rakel . Not Available [address] [address] [place], [address], 02/23/2022 18:04:33 02/19/20 22 02/23/2022 THINP REP TIS PAP comment: normal This Pap test has been evalu ated with compu taylor techn ology . Not Available [address] [address] [place], [address], 02/23/2022 18:04:33 02/19/20 22 02/23/2022 THINP REP TIS PAP cytotechnolo gist: normal MMW, CT( CP) CT scree james locat ion: [address] [address] [place] [address] Not Available [address] [address] [place], [address], 02/23/2022 18:04:33 02/19/20 22 02/23/2022 THINP REP TIS PAP review cytotechnolo gist: normal MVB, CT( CP) CT Scree james Locat ion: [address] [address] [place] [address] Not Available [address] [address] [place], [address], 02/23/2022 18:04:33 02/19/20 22 02/23/2022 THINP REP [...] clini christine infor matio n. Not Available [facility] [address] [address], [place], [address], 02/23/2022 18:04:33 02/19/20 22 02/18/2022 pregn bhavin test, urine HCG negati ve Not Available [address] [facility], [place], [address], 02/18/2022 11:44:15 04/22/20 25 04/23/2025 STD BLOOD SCREE JAMES ([facility] ) hep BS Ag Non-Re active non-re active normal Not Available [address], [address], 04/23/2025 13:23:44 04/22/20 25 04/23/2025 STD BLOOD SCREE JAMES ([facility] ) hep C Ab Non-Re active non-re active normal Not Available [address], [address], 04/23/2025 13:23:44 04/22/20 25 04/23/2025 STD BLOOD SCREE JAMES ([facility] ) HIV 1/2 Ag/Ab Non-Re active non-re active normal Not Available [address], [address], 04/23/2025 13:23:44 04/22/20 25 04/23/2025 STD BLOOD SCREE JAMES ([facility] ) syphilis Ab Non-Re active non-re active normal Not Available [address], [address], 04/23/2025 13:23:44 04/22/20 25 04/23/2025 CT/NG chlamydia trachomatis CT neg negati ve normal This repor t is inten ded for us in clini christine monit oring and manag ement of patie nts. It is not inten ded for use in medic al-le gal appli catio n. Not Available [facility] [address] [place], [address], 04/23/2025 14:40:17 04/22/2004/23/2025 CT/NG neisseria gonorrhoeae GC neg negati ve normal This repor t is inten ded for us in clini christine monit oring and manag ement of [facility]. It is not inten ded for use in medic al-le gal appli catio n. Not Available [facility] [address] [place], [address], 04/23/2025 14:40:17 04/22/2004/26/2025 THINP REP AUTOM ATED PAP clinical information: normal None given Not Available [address] [address] [place], [address], 04/26/2025 10:31:10 04/22/2004/26/2025 THINP REP AUTOM ATED PAP LMP: normal NONE GIVEN Not Available [facility] [address] [address] [place], [address], 04/26/2025 10:31:10 04/22/20 25 04/26/2025 THINP REP AUTOM ATED PAP prev. Pap: normal NONE GIVEN Not Available [facility] [address] [address] [place], [address], 04/26/2025 10:31:10 04/22/2004/26/2025 THINP REP AUTOM ATED PAP prev. BX: normal NONE GIVEN Not Available [facility] [address] [place], [address], 04/26/2025 10:31:10 04/22/2004/26/2025 THINP REP AUTOM ATED PAP source: normal Cervi x Not Available [facility] [address] [address] [place], [address], 04/26/2025 10:31:10 04/22/2004/26/2025 THINP REP AUTOM ATED PAP statement of adequacy: normal Satis facto ry for evalu ation . Endoc ervic al/tr ansfo rmati on zone compo nent absen t. Age and/o r menst rual statu s not provi ded Not Available [facility] [address] [place], [address], 04/26/2025 10:31:10 04/22/2004/26/2025 THINP REP AUTOM ATED PAP interpretati on/result: normal Cytol ogy Resul ts: Negat bonnie for intra epith elial lesio n or malig rakel . Not Available [facility] [address] [place], [address], 04/26/2025 10:31:10 04/22/2004/26/2025 THINP REP AUTOM ATED PAP comment: normal This Pap test has been evalu ated with the ThinP rep(R ) Imagi ng Syste m. Not Available [facility] [address] [place], [address], 04/26/2025 10:31:10 04/22/2004/26/2025 THINP REP AUTOM ATED PAP cytotechnolo gist: normal SXS, CT( CP) CT scree james locat ion: [employer] [facility], [facility], [place] [address] Labor atory Direc tor: SANDRA Mariano MD, CLIA: [id number] Not Available [address] [address] [place], [address], 04/26/2025 10:31:10 04/22/2004/26/2025 THINP REP AUTOM ATED [...] clini christine infor matio n. Not Available [facility] [address] [address], [place], [address], 04/26/2025 10:31:10 04/22/20 25 04/22/2025 pregn bhavin test, urine HCG negati ve Not Available [facility] [address] [place], [address], 04/22/2025 14:25:57 Result Notes None recorded. Problems No Known Problems Procedures Surgical History Date Name Laterality Status Provider Name and Address Organization Details Recorded Time 02/19/20 22 Date of Last Pap Smear completed Ita Caballero [facility] [employer] IV 01/16/2024 14:41:04 Heart surgery completed Nely Pearson [facility] 06/27/2023 11:11:16 Imaging Results None recorded. Procedure Notes None recorded. Medical Equipment None Reported. Allergies Allergen ID Allergen Name Allergen Category Reaction Reaction Severity Criticality Documentation Date Start Date Code Code System Note Provider Name and Address Organization Details Recorded Time [id number] latex environme nt,medica tion Not available Not available Not available 02/18/2022 96294 91 RxNorm Juli campos, [facility] [employer] IV 11:21:55 Medications Name Sig Start Date Stop Date Status Note LastModified by Organization Details LastModified Time Mirena 21 mcg/24 hr (up to 8 years) 52 mg intrauter ine device 02/18 completed Mirena 20 mcg/24 hours (5 yrs) 52 mg Intraute rine Intraute rine Device RxNorm: 616973 Allow Substitu tion: False Refill Denied: No Refill DateOccu rred: 10/10/19 21 Edited by: Cheryl Mehta ) on 11/06/19 21 [facility]yl [facility]av[facility] ) on Not Available Not Available [...] 15 mg/24 hr Vaginal Ring, Vaginal RxNorm: 4940115 Allow Substitu tion: True Refill Denied: No [...] cycloben zaprine 5 mg oral tablet RxNorm: 060649 Allow Substitu tion: True Refill Denied: No [...] ol tartrate 25 mg oral tablet RxNorm: 787134 Allow Substitu tion: True Refill Denied: No [...] Updated DateTime 01/16/2024 157.48 cm 38 kg/m2 05586.2 1 g 98 [degF] 110/70 mm[Hg] Ita Pabloshila [facility] [employer] IV 14:40:04 Date Recorded Body height Body mass index (BMI) Body weight Systolic And Diastolic Provider Name and Address Organization Details Last Updated DateTime 02/18/2022 157.48 cm 36.8 kg/m2 70500.07 g 122/80 mm[Hg] Juli Torrez [facility] [employer] IV 02/18/2022 11:19:04 Date Recorded Body height Body mass index (BMI) Body weight Provider Name and Address Organization Details Last Updated DateTime 04/22/2025 157.48 cm 41.6 kg/m2 634971.62 g Ana Kirk [facility] [employer] IV 04/22/2025 14:00:10 Date Recorded Body height Body mass index (BMI) Body weight Systolic And Diastolic Provider Name and Address Organization Details Last Updated DateTime 06/25/2022 157.48 cm 36.5 kg/m2 06080.32 g 120/76 mm[Hg] Hannah Torrez [facility] [employer] IV 06/25/2022 11:40:45 Date Recorded Body weight Body mass index (BMI) Body height Systolic And Diastolic Provider Name and Address Organization Details Last Updated DateTime 06/27/2023 95285.81 g 38.2 kg/m2 157.48 cm 98/68 mm[Hg] Nely Pearson [facility] [employer] IV 06/27/2023 11:20:02 Social History Question Answer Notes LastModified by Organizat ion Details LastModified Time Tobacco Smoking Status Smoker, Current Status Unknown Nely campos [place] [employer] IV 06/27/2023 11:11:11 How Many Years Have You Consumed Alcohol? 6 Information not available 06/27/2023 Are You Blind Or Do You Have Difficulty Seeing? No Information not available 06/27/2023 Are You Deaf Or Do You Have Serious Difficulty Hearing? No Information not available 06/27/2023 What Type Of Diet Are You Following? REGULAR Information not available 06/27/2023 How Many Children Do You Have? 1 [email or web address] Information not available 02/18/2022 What Is Your Relationship Status? Single [email or web address] Information not available 02/18/2022 Are You Sexually Active? No [email or web address] Information not available 02/18/2022 At What Age [...] ICD10 Code Diagnosis IMO Codes Diagnosis Note [id number] JILLIAN Crowder [facility] [address] [place] [address] 02/18/2022 11:13:58 02/18/2022 11:43:10 Gynecologic examination 64838401 Z01.419 Screening for malignant neoplasm of cervix 314434743 Z12.4 Surveillan ce of contraception 158421322 Z30.40 Discussed all methods of control. Risks/bene fits of each discussed. She is interested in OCP use. Risks/side effects of Lo Loestrin discussed [id number] Lori Xavier DO [facility] [address] [place] [address] 06/25/2022 11:34:01 06/25/2022 12:12:32 Female urinary stress incontinence 06503340 N39.3 JUSTINA - Discussed etiology and general treatment options including behavior modificati on, pelvic floor muscle strengthen ing, procedural options including slings, others - No significan t POP on exam, tissue appears well estrogeniz ed - Pt declined PFPT. Will work on kegel exercises Constipation 07274931 K5 9.00 Pt recently changed diet from [...] needed, or sooner if new symptoms develop. [id number] JILLIAN Roberto [facility] [address] [place] [address] 06/27/2023 10:48:31 06/27/2023 16:46:54 Gynecologic examination 47082383 Z01.411 Pt educated on ACOG and ASCCP guidelines for breast, ovarian, and cervical cancer screenings . Exam WNL. Plan for F/U PRN or for next WWE. Depression screening 171 460677 Z13.31 PHQ9: 9. Pt educated on abnormal scoring, and discussed recommenda tion for continued management with psych and PCP. Pt was recently taken off several medication s for mood and Rx'd Lamictal and Adderall. Pt educated on when to notify HCP/go to ER. Uterine prolapse 4578596 5 N81.4 Pt educated on exam findings c/w complaints of discomfort and needing to manually push back vaginal tissues to have a BM. Pt educated on stool softener use PRN, increasing p.o. water intake, and recommenda tion for referral to pelvic floor therapy. Plan to F/U in office if sx persistent and no relief with PT. Initial pr escription of oral contraception 630966101 Z30.011 Pt educated on all available progestero [...] Family his tory of cancer of colon 658966587 Z80.0 Pt educated on optional early colon cancer screenings 10 years sooner than family member's dx and MyRisk testing. Pt states understand ing and will consider. Pt to notify HCP if would like to proceed with GI referral or hereditary testing. [id number] Carlos Eduardo Lopez DO [facility] [address] [place] [address] 01/16/2024 14:15:34 01/17/2024 11:33:13 Constipation 01810419 K59.00 Additional diagnosis detail: Constipati on, unspecifie d constipati on typeStarte d her on Colace 100 mg to be taken as directed.R efill order sent for MiraLAX 17 grams to be taken as before.Adv ised to keep her stools softer with high fiber diet.Recom mended doing Kegel's exercises to strengthen her vaginal muscles. Family carlyn nning education 869668841 Z30.09 Refill provided for norethindr one 0.35 mg to be taken as directed. [id number] LIEN LE [facility] [address] [place] [address] 04/22/2025 13:52:44 04/23/2025 07:37:46 Gynecologic examination 09562285 Z01.419 -A routine gynecologi christine examinatio n [...] . Screening for malignant neoplasm of cervix 113202100 Z12.4 ASCCP guidelines reviewed with pt. Pap collected and sent. Further POC pending lab result review. Pt states understand ing of POC. Depression screening 171 706584 Z13.31 PHQ9: 15. Pt educated on abnormal scoring, and [facility] any thoughts of self harm, advised if any thoughts arise to seek care immediatel y. Pt voices understand ing Contracept bonnie use education 09972880 Z30.09 858452 -- Discussed options including OCPs, NuvaRing, Nexplanon, [...] ion. Screening for malignant neoplasm of breast 027410398 Z12.39 Pt educated on breast cancer screening guidelines . Denies any concerns with breast at this time. Denies any lumps, bumps, nipple discharge or unusual soreness. Pt states understand ing of POC. Venereal d isease screening 245689500 Z11.3 Pt educated on importance of condom [...] Mai Member ID Guarantor Name 06/18/2025 1 [facility] - DOS ON OR AFTER 21 (MEDICAID REPLACEMENT - HMO) Tamy Pink [id number] Tamy Pink Notes Date Note Type Note [...] GC/CT with her pap. JILLIAN Crowder [address] [facility], [place], [address], [employer] [facility] 02/18/2022 11:45:05 022 text/ht ml Pt is lactose intolerant and recently stopped ingesting dairy. Her BMs have changed from diarrhea to more solid. She is having to vaginal splint to have bowel movement sometimes. Also has urinary incontinence with laugh, sneeze, coughing YANETH JIMENEZ DO [address] [facility], [place], [address], [employer] [facility] 06/25/2022 12:09:15 023 text/ht ml [...] has no personal or family history of PERITONEAL DIALYSIS REGISTERED NURSE cancer. Family history of colon cancer, maternal aunt. Pt. thinks it was in her late 40s. Pt declines STD screening via culture and serum testing. Pt has no other concerns. Follows with PCP and psych. JILLIAN Roberto [facility] [facility], [place], [address], [facility] 06/27/2023 14:09:22 024 text/ht ml Pelvic ProlapseReported [...] for this encounter. Carlos Eduardo Lopez, DO [address] [facility], [place], [address], [facility] [employer] [facility] 01/16/2024 22:18:42 025 text/ht ml Annual [...] was started recently and is managed by [employer]. Pt has no other concerns. DUANE SALOMON, BANK VAULT CLERK [address] [facility], [place], [address], [facility] [employer] 04/23/2025 06:55:25 OBGyn Episode Ob Episode Information Episode Created Date Number of Fetuses Patient Bloodtype Patient rh Status Prepregnancy Weight lbs Domestic Partner Domestic Partner Phone Father Name Command And Control Officer Status 10/23/19 22 1 CLOSED Fetus Data First Name Last Name Admitted to NICU Weight (g) Sex Living Outcome Pediatric Complications Fetus ID Race Codes Race Delivery Type 3572.03 7 M [id number] Alli Calculation Initial Alli Date Initial Exam [...]
--- OUTSIDE RECORDS SUMMARY | 2025-07-02 10:46 | XMS_ITS | Clinical Summary ---
Author Organization [facility] Address [address] [place] [address] Care Team Providers Care Broadcasting Equipment Mechanic Name Role Phone Jean-Claude Anand MD Primary Care Provider [phone] Allergies No known active allergies Medications metoprolol [...] Noted Date Diagnosed Date SVT (supraventricular tachycardia) Encounters Date Type Department Care Team Description 04/28/2025 12:27 PM CDT - 04/28/2025 12:28 PM CDT Emergency [facility] [place] [address] Discharge Disposition: Left Against Medical Advice 04/21/2025 1:39 PM CDT - 04/21/2025 4:26 PM CDT Emergency [facility] [place] [address] Ellyn Hung PA Leg Swelling Discharge Disposition: [...] 1995 HPV Vaccines Completed 08/02/2007, 03/09, 01/20/2007 Hepatitis A Vaccines Completed 08/02/2007, 01/21/20 07 Meningococcal Vaccine Completed 03/09/2013, 011 Meningococcal B [...] (BACK OFFICE) STAT 04/21/2025 2:02 PM CDT HC TROPONIN QN STAT 04/21/2025 2:01 PM CDT HC D DIMER QN STAT 04/21/2025 2:01 PM CDT HC BASIC METABOLIC PANEL STAT 04/21/2025 2:01 PM CDT HC CBC AUTO W/AUTO DIFF STAT 04/21/2025 2:01 PM CDT XR LUMB SPINE 3V STAT 04/21/2025 1:48 PM CDT XR CHEST PORTABLE STAT 04/21/2025 1:4 8 PM CDT from Last 3 Months Results * ECG 12 lead (04/21/2025 2:09 PM CDT) 04/21/2025 2:09 PM CDT Narrative [facility] - 04/21/2025 5:56 PM CDT [place] [address] Test Date: 2025-04-21 Pat Name: RONNY PINK Department: 41 Room: [id number] Gender: Female Scrap Baler: MARY : 1995 Requested By: ELLYN HUNG Order Number: [id number] Eladio MD: Uriah Rome Measurements Intervals [place] Rate: 81 P: 37 OH: 153 QRS: 18 QRSD: 86 T: 26 QT: 357 QTc: 415 Interpretive Statements SINUS RHYTHM WITH SINUS ARRHYTHMIA Compared to ECG 01/16/2024 14:49:43 No significant changes . Procedure Note Uriah Rome MD - 04/21/[address] Test Date: 2025-04-21 Pat Name: RONNY PINK Department: 41 Room: [facility] Gender: Female Scrap Baler: MARY : 1995 Requested By: ELLYN HUNG Order Number: [id number] Reading MD: Uriah Rome Measurements Intervals [place] Rate: 81 P: 37 [place]: 153 QRS: 18 QRSD: 86 T: 26 QT: 357 QTc: 415 Interpretive Statements SINUS RHYTHM WITH SINUS ARRHYTHMIA Compared to ECG 01/16/2024 14:49:43 No significant changes . Ellyn MELVIN ECG ORDERABLES Final Result [facility] ([facility] RAD * POCT urine (04/21/2025 2:02 PM CDT) Pathologist [facility] URINE HCG TEST NEGATIVE Internal Control: VALID 04/21/2025 2:02 PM CDT Ellyn MELVIN POINT OF CARE TEST ORDERABLES Final Result * (ABNORMAL) BASIC METABOLIC PANEL (04/21/2025 2:01 PM CDT) Pathologist [facility] GLUCOSE 92 70 - 99 MG/DL 04/21/2025 2:30 PM CDT [facility] BUN 6(L) 7 - 18 MG/DL 04/21/2025 2:30 PM CDT [facility] CREATININE S/P/B 0.76 0.55 - 1.02 MG/DL 04/21/2025 2:30 PM CDT [facility] SODIUM S/P/B 138 136 - 145 MMOL/L 04/21/2025 2:30 PM CDT [facility] POTASSIUM S/P/B 4.1 3.5 - 5.1 MMOL/L 04/21/2025 2:30 PM CDT [facility] CHLORIDE S/P/B 108 97 - 115 MMOL/L 04/21/2025 2:30 PM CDT [facility] CO2 26.5 21 - 32 MMOL/L 04/21/2025 2:30 PM CDT [facility] CALCIUM S/P/B 9.5 8.5 - 10.1 MG/DL 04/21/2025 2:30 PM CDT [facility] ANION GAP 3.5 2 - 10 MMOL/L 04/21/2025 2:30 PM CDT [facility] BUN CREATININE RATIO 7.9 6 - 26 04/21/2025 2:30 PM CDT [facility] GFR ESTIMATE >90 >90 ML/MIN/1.7 3 M2 04/21/2025 2:30 PM CDT [facility] Comment: NOTE: eGFR is not calculated for patients <18 years of age or gender unknown. This is an estimated GFR calculation using the new CKD EPI creatinine equation without race and so does not require a correction factor for race. This estimated GFR should not be used for calculating drug doses. 04/21/2025 2:01 PM CDT us Ellyn MELVIN LABORATORY Final Result [facility] [address] [place] [address], * D-DIMER, QUANTITATIVE (04/21/2025 2:01 PM CDT) [facility] D-DIMER <215 0 - 500 ng{FEU}/mL 04/21/2025 2:46 PM CDT [facility] Comment: D-Dimer values less than [...] PM CDT [facility] Final Result [facility] [address] [place] [address], * (ABNORMAL) CBC W/DIFF AUTOMATED (04/21/2025 2:01 PM CDT) [facility] WBC 11.59(H) 4.5 - 11.0 x10'3/uL 04/21/2025 2:21 PM CDT [facility] RBC 4.65 4.20 - 5.40 x10'6/uL 04/21/2025 2:21 PM CDT [facility] HGB 14.2 12.0 - 16.0 G/DL 04/21/2025 2:21 PM CDT [facility] HCT 41.9 38.0 - 48.0 % 04/21/2025 2:21 PM CDT [facility] MCV 90.1 81.0 - 99.0 FL 04/21/2025 2:21 PM CDT [facility] MCH 30.5 27.0 - 31.0 PG 04/21/2025 2:21 PM CDT [facility] MCHC 33.9 32.0 - 36.0 G/DL 04/21/2025 2:21 PM CDT [facility] RDW 12.1 11.5 - 14.5 % 04/21/2025 2:21 PM CDT [facility] PLT 383 130 - 400 x10'3/uL 04/21/2025 2:21 PM CDT [facility] MPV 9.7 9.3 - 12.2 FL 04/21/2025 2:21 PM CDT [facility] DIFFERENTIAL TYPE AUTOMATED DIFFERENTIAL 04/21/2025 2:21 PM CDT [facility] NEUTROPHILS % 66.6 % 04/21/2025 2:21 PM CDT [facility] LYMPHOCYTES % 24.8 % 04/21/2025 2:21 PM CDT [facility] MONOCYTES % 6.7 % 04/21/2025 2:21 PM CDT [facility] EOSINOPHILS 1.1 % 04/21/2025 2:21 PM CDT [facility] BASOPHILS 0.5 % 04/21/2025 2:21 PM CDT [facility] IMMATURE GRANS % 0.3 % 04/21/20 2:21 PM CDT [facility] ABS. NEUTROPHILS 7.71(H) 1.80 - 7.70 x10'3/uL 04/21/2025 2:21 PM CDT [facility] ABS. LYMPHOCYTES 2.87 1.00 - 4.80 x10'3/uL 04/21/2025 2:21 PM CDT [facility] ABS. MONOCYTES 0.78 0.24 - 0.86 x10'3/uL 04/21/2025 2:21 PM CDT [facility] ABS. EOSINOPHILS 0.13 0.04 - 0.36 x10'3/uL 04/21/2025 2:21 PM CDT [facility] ABS. BASOPHILS 0.06 0.01 - 0.08 x10'3/uL 04/21/2025 2:21 PM CDT [facility] ABS. IMMATURE GRANULOCYTES 0.04 0.00 - 0.49 x10'3/uL 04/21/2025 2:21 PM CDT [facility] 04/21/2025 2:01 PM CDT [facility] Final Result Performing Organization Address City/[facility]/ZIP Co de Phone Number [facility] [address] [place] [address], [place] [phone] * TROPONIN, QUANT (04/21/2025 2:01 PM CDT) TROPONIN I HIGH SENSITIVITY 6 <54 ng/L 04/21/2025 2:34 PM CDT [facility] Comment: HIGH DOSES OF BIOTIN, TROPONIN-SPECIFIC AUTOANTIBODIES, AND ANTIBODY THERAPY CONTAINING HAMA MAY INTERFERE WITH THIS TEST RESULT. CORRELATION TO CLINICAL HISTORY AND PRESENTATION RECOMMENDED. 04/21/2025 2:01 PM CDT [facility] Final Result [facility] [address] [place] [address], [place] [phone] * XR LUMB SPINE 3V (04/21/2025 1:48 PM CDT) Anatomical Region Laterality Modality Spine Radiographic Dedra ging 04/21/2025 2:02 PM CDT Impressions 04/21/2025 2:02 PM CDT IMPRESSION: Multilevel degenerative disc disease, worse at L4-5. Referred By: Interpreted By: Kelton Ramos MD, 04/21/2025 2:02 PM Narrative 04/21/2025 2:02 PM CDT [place] [address] Examination: XR LUMB SPINE 3V Exam time: 04/21/2025 1:32 PM Indication: Left leg pain Comparison: None Findings: 3 views of the lumbar spine were obtained. No significant anterolisthesis or retrolisthesis. The pedicles are symmetric. There is moderate degenerative disc disease L4-5. There is mild degenerative disc disease at the remaining levels. No fracture. Procedure Note Kelton Ramos MD - 04/21/[address] [address] Examination: XR LUMB SPINE 3V Exam time: [...] 2:02 PM Narrative 04/21/2025 2:03 PM CDT [address] [address] Examination: XR CHEST PORTABLE Exam time: 04/21/2025 1:32 PM Indication: Left leg pain and swelling Comparison: Chest 01/16/2024 Findings: Upright PA view of the chest was obtained. The heart size is normal. No vascular congestion. No airspace consolidation, pleural effusion, or pneumothorax. Procedure Note Kelton Ramos MD - 04/21/[address] [address] Examination: XR CHEST PORTABLE Exam time: 04/21/2025 [...] Final Result from Last 3 Months Insurance [employer] Care Teams Broadcasting Equipment Mechanic Relationship Specialty Start Date End Date Jean-Claude Anand MD [address] [address] PCP - General INTERNAL MEDICINE 04/21/25
== END 2025-07-02 10:00 | disposition home or self-care (01) ==
PROVIDERS: Emergency Provider Emergency Medicine; PCP Nurse Practitioner
DX: J20.9 Acute bronchitis, unspecified (principal); Z87.891 Personal history of nicotine dependence; Z20.822 Contact with and (suspected) exposure to COVID-19
CPT/HCPCS: 71046; 87637; 99283